=== PATIENT | female | born 1940 | race Caucasian/White ===

== ENCOUNTER 2019-10-12 18:22 | Inpatient (IN) ==
[2019-10-12] MEDS ORDERED: ONDANSETRON INJ 2 MG/ML 2 ML VIAL IV STA (19:04)
--- NOTE | 2019-10-12 19:04 | Emergency Department Note ---
Impression & Plan Hyponatremia, Nausea, Weakness ED Provider Note NAME: ISMA CHACON AGE: 79 SEX: F : 1940 ARRIVES VIA: Ambulance INFORMANT: Patient, ED PROVIDER(S): Yefri Kee MD Chief Complaint: Nausea, decreased appetite HPI: Patient does present with concerns for nausea and decreased appetite. The patient states that she is just not felt well with some associated weakness. The patient states that her symptoms really began last week progressively worse on Thursday. The patient has not vomited for several days but has absolutely no appetite. The patient states that she had been seen up in [place] days ago. Patient is unsure as whether or not she had any imaging done at that time. Patient states that she has had bowel movements and urinating. No blood in urine or stool. The patient denies coronavirus contacts or symptoms at this time. Patient states that nothing particular is made her symptoms any better nothing particular does seem to make it worse. The patient states that her symptoms have been fairly constant and worsening. Patient did have occasional chest pressure but it was nonexertional in nature. ROS: See HPI for pertinent positives and negatives. A total of 10 systems were reviewed and otherwise negative. Past medical history: See below Surgical history: See below Social history: See below Physical Exam: GENERAL: NAD, non-toxic. Wearing a mask. EYE EXAM: Normal conjunctiva. PERRL, no anisocoria and EOM's grossly intact w/o pain. NECK: Supple, no nuchal rigidity, no adenopathy, non-tender. No signs of meningismus. LUNGS: Clear to auscultation. Normal chest wall mechanics. HEART: NSR, no MRG. ABDOMEN: Abdomen soft, non-tender, normo-active bowel sounds, no masses, no rebound or guarding. BACK: No CVA TTP. SKIN: No rashes and no bruising. UPPER EXTREMITIES: Upper extremities are grossly normal. LOWER EXTREMITIES: Grossly normal, no edema. NEURO EXAM: A&O x3, cranial nerves II-XII grossly intact, normal speech, moves all 4 extremities on command w/o issue. Differential diagnoses: Appendicitis, ovarian cyst, ovarian torsion, ectopic , TOA, PID, infections, diverticulitis, UTI, obstruction, mesenteric ischemia, aortic pathology, inflammatory bowel disease, renal colic, PUD, pancreatitis, biliary pathology, hernia, volvulus, constipation, as well as other pathologies. Course: Patient was seen and evaluated the bedside. Full history physical exam was performed. EKG: Normal sinus rhythm, rate 80, normal intervals, normal axis, possible Q wave in V2 and lead III no obvious ST changes. No prior EKGs for comparison Imaging Studies: Radiology results as stated below per my review in the radiologist's interpretation: CT abd pelvis IV con only CLINICAL HISTORY: nausea, decreased appetite COMPARISON STUDY: None. TECHNIQUE: Patient was scanned following administration of dilute oral contrast, and in a dynamic helical fashion during intravenous administration of 90 cc of Optiray 320. A dose lowering technique was utilized adhering to the principles of ALARA. CT DOSE: 366.88 mGycm FINDINGS: Lower chest: There are mild basilar atelectatic changes Liver: The contrast-enhanced liver is normal in size, contour, and attenuation. There is no intrahepatic biliary ductal dilatation. The hepatic veins and portal veins are patent. Gallbladder: Unremarkable. Spleen: Top normal in size. No splenic masses identified Pancreas: Unremarkable. Adrenal glands: There is minor left adrenal gland thickening. Kidneys: No solid renal masses are visualized. There is no hydronephrosis. There is a 1 cm right renal cyst. Bowel: There are no transition zones to indicate bowel obstruction. There is no acute diverticulitis. The appendix is not visualized with certainty. There are no findings to indicate acute appendicitis. Peritoneum: There is no intraperitoneal free air or abdominal ascites. There is a fat-containing left inguinal hernia Vasculature: The abdominal aorta is normal in course and caliber. Adenopathy: None. Pelvic viscera: The uterus appears surgically absent Skeletal structures: No destructive osseous lesions are seen. IMPRESSION: 1. No acute intra-abdominal or pelvic findings 2. No evidence of bowel obstruction. No evidence of free air 3. No evidence of acute diverticulitis. No evidence of acute appendicitis. 4. Small fat-containing left inguinal hernia ACT 112: Negative or not required by law. Electronically signed by: Esteban Ramirez M.D. 10/12/2019 9:04 PM Dictated: 10/12/192058 Transcribed: 10/12/192102 XR chest 1V portable CLINICAL HISTORY: nausea COMPARISON STUDY: No previous studies for comparison. FINDINGS: The cardiac and mediastinal contours are normal. There is no evidence of focal pulmonary consolidation. There is no evidence of failure. No pleural effusions are visualized.[There is no free intraperitoneal air. IMPRESSION: No active disease in the chest. ACT 112: Negative or not required by law. Electronically signed by: Esteban Ramirez M.D. 10/12/2019 7:20 PM Dictated: 10/12/191918 Transcribed: 10/12/191918 Cardiac monitoring: An order was placed for continuous cardiac monitoring. The monitor shows a rate of 80 with sinus rhythm. MDM: Patient was seen due to concern for decreased appetite as well as nausea. The patient states that she did have some occasional associated chest pressure. Patient denies exertional symptoms. Blood work was obtained showed the patient was hyponatremic. CT of the abdomen pelvis was unremarkable. EKG with no obvious acute ischemic change possible Q waves. Troponin is not elevated. Given the patient's hyponatremia decreased appetite I do believe the patient would benefit from inpatient treatment and additional monitoring. I did speak the on-call hospitalist who agreed to further evaluate treat the patient. Patient was subsequently mated to the medicine service by Dr. Jackman. Past Med/Surg History Medical History (Updated 10/14/19 @ 12:12 by Yefri Kee MD) Glaucoma HTN (hypertension) Social History Preferred Language: Hong Konger Communication Ability: Effective Briquette Maker Required: No Beliefs That Will Affect Care: Spiritual marital status: Current Living Situation: Spouse Other Information That Helps Us Care for You: No Feels Safe at Home: Yes Safety Concerns: Feels Safe At This Time Smoking Status: Former smoker Tobacco Type: cigarettes ; Do You Dip or Chew Tobacco: No ; Second Hand Exposure: No ; Tobacco Cessation Education Requested by Patient: No Hx Alcohol Use: Yes Alcohol type: wine Hx Substance Use: No Allergies Allergies Allergy/AdvReac Type Severity Reaction Status Date / Time brimonidine AdvReac CRUSTY EYES Verified 10/12/19 19:25 Home Meds Home Medications Medication Instructions Recorded Confirmed biotin 10,000 mcg PO DAILY 10/12/19 10/12/19 calcium carb,glucon-vitamin D2 2 tab PO DAILY 10/12/19 10/12/19 dorzolamide [Trusopt] 1 drp OPHTHALMIC (EYE) UD 10/12/19 10/12/19 latanoprost [Xalatan] 1 drp OPL QPM 10/12/19 10/12/19 lisinopril 10 mg PO DAILY 10/12/19 10/12/19 metoprolol succinate [Toprol XL] 25 mg PO DAILY 10/12/19 10/12/19 multivitamin 1 tab PO DAILY 10/12/19 10/12/19 omega 7-slm-pzr-fish oil [[place]-3] 1 cap PO DAILY 10/12/19 10/12/19 potassium chloride [Klor-Con M20] 20 meq PO DAILY 10/12/19 10/12/19 timolol maleate [Timoptic] 1 drp OPL BID 10/12/19 10/12/19 Results & Data (ED) Vital Signs Vital Signs - 24 hr 10/12/19 18:45 Temperature 37.1 C Temperature Source Oral Pulse Rate 82 Pulse Rhythm Regular Pulse Strength Normal Respiratory Rate 18 Respiratory Effort / Characteristics Non-Labored Spontaneous Short of Breath Respiratory Depth Normal Respiratory Pattern Regular Blood Pressure 175/79 H Blood Pressure Mean 111 Blood Pressure Position Sitting Pulse Oximetry 97 Oxygen Delivery Method Room Air Sepsis Recent Fever Within 48 Hours No Sepsis Action Taken by Nursing No Action Required Home Medications Current Medication List: was personally reviewed by me Laboratory Data Attestation: I reviewed the patient's lab results. Result diagrams: 10/14/19 06:57 10/14/19 06:57 Lab Results 10/12/19 10/12/19 10/12/19 Range/Units 19:35 19:36 19:36 WBC 10.77 (4.8-10.8) K/uL RBC 4.71 (4.2-5.4) M/uL Hgb 13.5 (12.0-16.0) g/dL Hct 38.2 (37-47) % MCV 81.1 (80-100) fL MCH 28.7 (25-34) pg MCHC 35.3 (32-36) g/dL RDW Std Deviation 39.4 (36.4-46.3) fL RDW Coeff of Beth 13.1 (11.5-14.5) % Plt Count 91 L (130-400) K/uL MPV 10.6 H (7.4-10.4) fL Neutrophils % (Manual) 36.5 % Lymphocytes % (Manual) 20.0 % Reactive Lymphs % (Man) 38.3 % Monocytes % (Manual) 3.5 % Metamyelocytes % (Man) 1.7 % Neutrophils # (Manual) 3.93 (1.4-6.5) K/uL Total Absolute Neuts 3.93 (1.4-6.5) K/uL Lymphocytes # (Manual) 2.15 (1.2-3.4) K/uL Reactive Lymphs # 4.12 K/uL Total Abs Lymphocytes 6.28 H (1.2-3.4) K/uL Monocytes # (Manual) 0.38 (0.11-0.59) K/uL Metamyelocytes # (Man) 0.18 H (0-0) K/uL Blood Smear Review RBC Morphology Unremarkable Sodium 126 L (136-145) mmol/L Potassium 4.4 (3.5-5.1) mmol/L Chloride 91 L (98-107) mmol/L Carbon Dioxide 28 (21-32) mmol/L Anion Gap 7.0 (3-11) BUN 17 (7-18) mg/dl Creatinine 0.73 (0.6-1.2) mg/dl Est Cr Clr Drug Dosing 48.7 ml/min Est GFR ( Amer) 92.1 Est GFR (Non-Af Amer) 79.4 BUN/Creatinine Ratio 23.8 H (10-20) Glucose 105 H (70-99) mg/dl Calcium 8.6 (8.5-10.1) mg/dl Phosphorus 1.8 L (2.5-4.9) mg/dl Magnesium 1.8 (1.8-2.4) mg/dl Total Bilirubin 0.6 (0.2-1) mg/dl AST 133 H (15-37) U/L ALT 101 H (12-78) U/L Alkaline Phosphatase 81 (45-117) U/L Troponin I 0.019 (0-0.045) ng/ml NT-Pro-B Natriuret Pep 1464 (0-1800) pg/ml Total Protein 6.9 (6.4-8.2) gm/dl Albumin 3.2 L (3.4-5.0) gm/dl Globulin 3.7 (2.5-4.0) gm/dl Albumin/Globulin Ratio 0.9 (0.9-2) Lipase 95 (73-393) U/L Urine Color Dark Yellow Urine Appearance Clear (Clear) Urine pH 7.5 (4.5-7.5) Ur Specific [place] 1.018 (1.000-1.030) Urine Protein Negative (Negative) Urine Glucose (UA) Negative (Negative) Urine Ketones 1+ H (Negative) Urine Blood Negative (Negative) Urine Nitrite Negative (Negative) Urine Bilirubin Negative (Negative) Urine Urobilinogen Negative (Negative) Ur Leukocyte Esterase Negative (Negative) Urine WBC (Auto) 1-5 (0-5) /hpf Urine RBC (Auto) 0-4 (0-4) /hpf U Hyaline Cast (Auto) 5-10 H (0-5) /lpf U Epithel Cells (Auto) >30 H (0-5) /lpf Urine Bacteria (Auto) Negative (Negative) Administered Medications Dorzolamide HCl (Trusopt 2% Oph) 1 drops OPL BID RUDOLPH Stop: 11/12/19 08:59 Last Admin: 10/14/19 08:36 Dose: 1 drops Documented by: [id number] Admin: 10/13/19 20:26 Dose: 1 drops Documented by: [id number] Admin: 10/13/19 08:00 Dose: 1 drops Documented by: [id number] Enoxaparin Sodium (Lovenox) 30 mg SQ Q24H RUDOLPH Stop: 11/12/19 08:59 Last Admin: 10/14/19 08:33 Dose: 30 mg Documented by: [id number] Admin: 10/13/19 09:11 Dose: 30 mg Documented by: [id number] Ioversol (Optiray 320 100ml) 90 ml IV ONCE PRN PRN Reason: Interaction Checking Stop: 10/16/19 20:46 Last Admin: 10/12/19 20:49 Dose: 90 ml Documented by: [id number] Latanoprost (Xalatan Oph) 1 drops OPL QPM RUDOLPH Stop: 11/12/19 20:59 Last Admin: 10/13/19 20:26 Dose: 1 drops Documented by: [id number] Lisinopril (Zestril) 10 mg PO DAILY RUDOLPH Stop: 11/12/19 08:59 Last Admin: 10/14/19 08:36 Dose: 10 mg Documented by: [id number] Admin: 10/13/19 09:06 Dose: 10 mg Documented by: [id number] Magnesium Hydroxide (Milk Of Magnesia) 30 ml PO Q6H PRN PRN Reason: Constipation Stop: 11/12/19 00:18 Last Admin: 10/13/19 20:27 Dose: 30 ml Documented by: [id number] Metoprolol Succinate (Toprol Xl) 25 mg PO DAILY RUDOLPH Stop: 11/12/19 08:59 Last Admin: 10/14/19 08:35 Dose: 25 mg Documented by: [id number] Admin: 10/13/19 09:06 Dose: 25 mg Documented by: [id number] Timolol Maleate (Timoptic-Xe 0.5% Oph) 1 drops OPL BID RUDOLPH Stop: 11/12/19 08:59 Last Admin: 10/14/19 08:35 Dose: 1 drops Documented by: [id number] Admin: 10/13/19 20:26 Dose: 1 drops Documented by: [id number] Admin: 10/13/19 07:59 Dose: 1 drops Documented by: [id number] Discontinued Medications Sodium Phosphate 21 mmol/ (Sodium Chloride) 507 mls @ 88 mls/hr IV ONE ONE Stop: 10/13/19 06:15 Last Infusion: 10/13/19 06:50 Dose: 0 mls/hr Documented by: [id number] Admin: 10/13/19 01:00 Dose: 88 mls/hr Documented by: [id number] Ondansetron HCl (Zofran) 4 mg IV NOW STA Stop: 10/12/19 19:05 Last Admin: 10/12/19 20:11 Dose: 4 mg Documented by: [id number] Sodium Chloride (Sodium Chloride) 2 gm PO BID RUDOLPH Stop: 11/12/19 00:18 Last Admin: 10/13/19 09:05 Dose: 2 gm Documented by: [id number] Admin: 10/13/19 01:00 Dose: 2 gm Documented by: [id number] Discharge Plan Visit Data *Final* Discharge Date/Time: 10/13/19 00:21 Chief Complaint: Nausea ED Provider: Yefri Kee Discharge Problem: Hyponatremia, Nausea, Weakness Patient Disposition: Admitted As Inpatient Discharge Instructions Interventions: ED Discharge Assessment Last Done: 10/13/19 00:21
--- NOTE | 2019-10-12 19:21 | XRay Report ---
XR chest 1V portable CLINICAL HISTORY: nausea COMPARISON STUDY: No previous studies for comparison. FINDINGS: The cardiac and mediastinal contours are normal. There is no evidence of focal pulmonary co nsolidation. There is no evidence of failure. No pleural effusions are visualized.[There is no free i ntraperitoneal air. IMPRESSION: No active disease in the chest. ACT 112: Negative or not required by law. Electronically signed by: Esteban Ramirez M.D. 10/12/2019 7:20 PM
[2019-10-12 20:04] LABS: Albumin Level 3.2 gm/dl (3.4-5.0); BUN Creatinine Ratio 23.8 (10-20); Calcium 8.6 mg/dl (8.5-10.1); Creatinine Clr Calc Pharmacy 48.7 ml/min; Est GFR (African American) 92.1; Est GFR (Non-African American) 79.4; Magnesium 1.8 mg/dl (1.8-2.4); Potassium 4.4 mmol/L (3.5-5.1)
[2019-10-12 20:05] LABS: Appearance Urine Clear (Clear); Bacteria Urine Automated Negative (Negative); Bilirubin Urine Negative (Negative); Blood Urine Negative (Negative); Color Urine Dark Yellow; Epithelial Cell Urine Auto >30 /lpf (0-5); Glucose Urine UA Negative (Negative); Ketones Urine 1+ (Negative); Leukocyte Esterase Urine Negative (Negative); Nitrite Urine Negative (Negative); RBC Urine Automated 0-4 /hpf (0-4); Specific Gravity Urine 1.018 (1.000-1.030); Urobilinogen Urine Negative (Negative); pH Urine 7.5 (4.5-7.5)
[2019-10-12 20:09] LABS: Albumin Globulin Ratio 0.9 (0.9-2); Bilirubin,Total 0.6 mg/dl (0.2-1); Globulin 3.7 gm/dl (2.5-4.0); Phosphorus 1.8 mg/dl (2.5-4.9); Total Protein 6.9 gm/dl (6.4-8.2); Troponin I 0.019 ng/ml (0-0.045)
[2019-10-12 20:10] LABS: Hematocrit (blood only) 38.2 % (37-47); Hemoglobin 13.5 g/dL (12.0-16.0); Mean Corpuscular Hemoglobin 28.7 pg (25-34); Mean Corpuscular Hgb Conc 35.3 g/dL (32-36); Mean Corpuscular Volume 81.1 fL (80-100); RDW Coefficient of Variation 13.1 % (11.5-14.5); RDW Standard Deviation 39.4 fL (36.4-46.3); Red Blood Count 4.71 M/uL (4.2-5.4); White Blood Count 10.77 K/uL (4.8-10.8)
[2019-10-12 20:11] LABS: Protein Urine Negative (Negative); Sulfosalicylic Acid Urine Negative (Negative)
[2019-10-12 20:30] LABS: Mean Platelet Volume 10.6 fL (7.4-10.4); Platelet Count 91 K/uL (130-400)
[2019-10-12 20:31] LABS: ALC (manual) 6.28 K/uL (1.2-3.4); ANC (manual) 3.93 K/uL (1.4-6.5); Lymphocytes # (manual) 2.15 K/uL (1.2-3.4); Metamyelocytes # (manual) 0.18 K/uL (0-0); Metamyelocytes % (manual) 1.7 %; Monocytes # (manual) 0.38 K/uL (0.11-0.59); Monocytes % (manual) 3.5 %; Neutrophils # (manual) 3.93 K/uL (1.4-6.5); Neutrophils % (manual) 36.5 %; RBC Morphology Unremarkable; Reactive Lymphocytes # (manual) 4.12 K/uL; Reactive Lymphocytes % (manual) 38.3 %
[2019-10-12] MEDS ORDERED: IOVERSOL 100ml IV PRN (20:47)
--- NOTE | 2019-10-12 21:05 | CT Scan Report ---
CT abd pelvis IV con only CLINICAL HISTORY: nausea, decreased appetite COMPARISON STUDY: None. TECHNIQUE: Patient was scanned following administration of dilute oral contrast, and in a dynamic hel ical fashion during intravenous administration of 90 cc of Optiray 320. A dose lowering technique wa s utilized adhering to the principles of ALARA. CT DOSE: 366.88 mGycm FINDINGS: Lower chest: There are mild basilar atelectatic changes Liver: The contrast-enhanced liver is normal in size, contour, and attenuation. There is no intrahepa tic biliary ductal dilatation. The hepatic veins and portal veins are patent. Gallbladder: Unremarkable. Spleen: Top normal in size. No splenic masses identified Pancreas: Unremarkable. Adrenal glands: There is minor left adrenal gland thickening. Kidneys: No solid renal masses are visualized. There is no hydronephrosis. There is a 1 cm right jayleen l cyst. Bowel: There are no transition zones to indicate bowel obstruction. There is no acute diverticulitis. The appendix is not visualized with certainty. There are no findings to indicate acute appendicitis. Peritoneum: There is no intraperitoneal free air or abdominal ascites. There is a fat-containing left inguinal hernia Vasculature: The abdominal aorta is normal in course and caliber. Adenopathy: None. Pelvic viscera: The uterus appears surgically absent Skeletal structures: No destructive osseous lesions are seen. IMPRESSION: 1. No acute intra-abdominal or pelvic findings 2. No evidence of bowel obstruction. No evidence of free air 3. No evidence of acute diverticulitis. No evidence of acute appendicitis. 4. Small fat-containing left inguinal hernia ACT 112: Negative or not required by law. Electronically signed by: Esteban Ramirez M.D. 10/12/2019 9:04 PM
--- NOTE | 2019-10-12 22:28 | History & Physical Report ---
Date of Service October 12, 2019 Assessment & Plan (1) Hyponatremia: Mrs. Maria is a 79 yo woman who presents to [facility] after a recent hospitalization at [facility] with persistent nausea and diminished appetite, found to be hyponatremia on admission. - sodium level 129 on admission - clinically patient appears euvolemic - serum osmolarity, urine osmolarity, urine sodium ordered - etiology unknown at this time; given suspicion for hypovolemic hyponatremia at [facility], SIADH is a possible etiology, as patient has no history of Kenneth's disease or thyroid disease (can consider checking a TSH); plasma bicarb normal and anion gap normal, making distal RTA unlikely as cause - in the event SIADH is cause, unlikely to be medication induced, as patient not using cyclophosphamide, vinca alkaloids or NSAIDs. Nausea is possible etiology. Pain is unlikely as cause, as patient only developed abdominal discomfort today and she was hyponatremic on presentation at [facility] on 10/07. 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 Can consider brain imaging. Lung malignancy is possible as patient is a former smoker (pack year history not obtained), although CXR was normal. - fluid restrict to 1 liter per day - start salt tabs, 2grams, BID - repeat BMP in AM labs (2) Hypophosphatemia: - level at 1.8 on admission - 21 mmol of IV replacement ordered - repeat level in AM (3) Elevated LFTs: - AST 133, ALT 101 - INR level at 1.19 (obtained at [facility]); suggests no issue with intrinsic liver function - CT scan of a/p showed no structural liver issues - etiology unknown; considering platelets are also low, there is concern for spirochete infection - ordered lyme and anaplasmosis serology - patient denies any recollection of recent tick bite (4) Thrombocytopenia: - platelets at 91k/UL (review of records from [facility] showed level of 78k/UL) - see work up as above - DVT ppx NOT contraindicated (5) Lymphocytosis: - elevated to 6 on admission - metamyelocytes also present - peripheral smear ordered - concern for myelodysplastic syndrome - consider lymphoma/leukemia panel during hospital stay (6) Nausea: - persistent; has not vomited since 10/06 - CT a/p showing no acute findings - may be secondary to (or cause of) hyponatremia - Zofran prn (7) Inguinal hernia, left: - noted incidentally on CT scan of abdomen and pelvis - possibly represents the source of patient's left sided abdominal pain? - serial exams (8) Cyst of right kidney: - noted incidentally on CT scan of abdomen and pelvis - 1cm in size (9) HTN (hypertension): - BP elevated to 175/79 on admission - continue home lisinopril and metoprolol succinate (10) Glaucoma: - chronic - patient to continue home eye drops while in hospital - no acute management Dispo: med//surg with tele DVT ppx: Lovenox 30mg SQ daily Diet: heart healthy Code: Full History of Present Illness Primary Care Provider: Anthony Gao Mrs. Maria is a 79 yo woman who presented to [facility] ED for evaluation o f ongoing nausea, left sided abdominal pain, and diminished appetite. Of note, Mrs. Maria was admitted to [facility] from 10/08/19 until today. She presented to [facility] with nausea, vomiting, SOB and cough. On arrival she was COVID tested, which came back negative. Her BNP was elevated to 1048, and the initial concern was that of a new diagnosis of CHF, however her CXR did not show evidence of pulmonary congestion and an echocardiogram obtained during her stay at [facility] was reportedly normal. Mrs. Maria also presented with electrolyte disturbances, including a sodium level of 129. Urine random sodium was 7 and urine osmolarity was 645. Nephrology was consulted during her hospital stay and felt as though she had a hypovolemic hyponatremia as her sodium level did not improve with administration of 1 liter of saline. Upon discharge from [facility], Mrs. Maria was given a script of K-Dur 20mEQ daily, directed to fluid restrict to 1 liter per day, and advised to see a city marshal for work up of pulmonary HTN. Her follows with Dr. Miguel here at [facility], so Mrs. Maria would like to see him. After being discharged from [facility] today, Mrs. Maria continued to feel nauseous. She was able to hold down several bites of lunch, although she truly had no appetite. Her last BM was 2 days ago. In the afternoon she developed left sided abdominal pain, which ultimately prompted her to come to [facility] for further evaluation. ED course: CBC showing normal WBC, but lymphocytosis and metamyelocytes. Platelets low at 91k/uL (increased from 78k/uL at [facility]). Sodium low at 126. Phosphorus low at 1.8. AST 133. ALT 101. Lipase WNL. CXR showing no active disease in chest, no evidence of pulmonary edema. CT scan of A/P showing no acute processes; a left, small fat-containing inguinal hernia; a right 1cm renal cyst also noted incidentally. Allergies Allergy/AdvReac Type Severity Reaction Status Date / Time brimonidine AdvReac CRUSTY EYES Verified 10/12/19 19:25 Home Medications Home Medications Medication Instructions Recorded Confirmed Type biotin 10,000 mcg PO DAILY 10/12/19 10/12/19 History calcium carb,glucon-vitamin D2 2 tab PO DAILY 10/12/19 10/12/19 History dorzolamide [Trusopt] 1 drp OPHTHALMIC (EYE) UD 10/12/19 10/12/19 History latanoprost [Xalatan] 1 drp OPL QPM 10/12/19 10/12/19 History lisinopril 10 mg PO DAILY 10/12/19 10/12/19 History metoprolol succinate [Toprol XL] 25 mg PO DAILY 10/12/19 10/12/19 History multivitamin 1 tab PO DAILY 10/12/19 10/12/19 History omega 1-ydl-gjv-fish oil [[place]-3] 1 cap PO DAILY 10/12/19 10/12/19 History potassium chloride [Klor-Con M20] 20 meq PO DAILY 10/12/19 10/12/19 History timolol maleate [Timoptic] 1 drp OPL BID 10/12/19 10/12/19 History Past Med/Surg History Medical History (Updated 10/13/19 @ 16:49 by ARIELLA Barrow) Glaucoma HTN (hypertension) Social History Preferred Language: Kenyan Communication Ability: Effective Manager Sales Support Required: No Beliefs That Will Affect Care: Spiritual marital status: Current Living Situation: Spouse Other Information That Helps Us Care for You: No Feels Safe at Home: Yes Safety Concerns: Feels Safe At This Time Smoking Status: Former smoker Tobacco Type: cigarettes ; Do You Dip or Chew Tobacco: No ; Second Hand Exposure: No ; Tobacco Cessation Education Requested by Patient: No Hx Alcohol Use: Yes Alcohol type: wine Hx Substance Use: No Review of Systems Constitutional: + malaise Gastrointestinal: + abdominal pain (left upper quadrant ), + early satiety and + nausea; no vomiting Physical Exam Constitutional: WD/WN, vitals as above cooperative; no acute distress Appears to be Euvolemic Eyes: + anicteric sclerae L eye squinting ENMT: external ear and nose normal, oropharynx normal wearing a mask Neck: normal visual inspection and trachea midline Respiratory: normal respiratory effort, lungs clear to auscultation Auscultation: no crackles, no rales, no rhonchi and no wheezes Cardiovascular: RRR, no murmur, no edema Heart Sounds: normal S1 and normal S2 Extremities: no pedal edema Gastrointestinal (Abdomen): normal bowel sounds, soft, nontender, no hepatosplenomegaly Skin: no rashes, warm and dry Psychiatric: A+Ox3, euthymic affect Results & Data Results & Data ([facility]) Vital Signs (Past 12 Hours) Vital Signs Temp Pulse Resp BP BP Pulse Ox 10/12/19 21:36 96 10/12/19 20:10 175/79 H 10/12/19 18:45 37.1 C 82 18 175/79 H 97 Supervising Physician Co-Signing Physician Notes Attending addendum: I have physically seen this patient, have supervised the medical residents activities, and agree with the H&P unless as otherwise noted. Assessment and Plan: Hyponatremia- Sodium 126 upon admission. Fluid restrict to 1 L daily as noted Start sodium chloride 2 g p.o. twice daily Check serum osmolality, urine osmolality and urine sodium. Urine osmolality reportedly over 600 at previous hospital. If diagnosis is SIADH, will need to pursue appropriate work-up, including imaging of brain. Abnormal LFTs- CT scan abdomen and pelvis negative Repeat laboratories in a.m. If worsening, can pursue abnormal LFT work-up at that time. Due to associated thrombocytopenia, will order Lyme and anaplasmosis serologies. Order peripheral smear. Lymphocytosis/metamyelocytes- Order peripheral smear. Repeat laboratories in a.m. Persistent and/or worsening, consider to order lymphoma/leukemia profile. Differential includes viral process/MDS/lymphoma, leukemia. Remaining orders and notations as noted. Resident Activity Tracking Resident Involvement: Resident Care Provided Care Provided: Adult Hospital Medicine
[2019-10-13] MEDS ORDERED: SODIUM PHOSPHATE 3 MMOL/1 ML INFUSION IV STA (00:19)
[2019-10-13] MEDS ORDERED: ACETAMINOPHEN 325 MG TAB PO PRN (00:19)
[2019-10-13] MEDS ORDERED: ONDANSETRON INJ 2 MG/ML 2 ML VIAL IV PRN (00:19)
[2019-10-13] MEDS ORDERED: POLYETHYLENE (MIRALAX) 17 GM PACK PO PRN (00:19)
[2019-10-13] MEDS ORDERED: ALUMINUM/MAGNESIUM SUSP 30 ML UDC PO PRN (00:19)
[2019-10-13] MEDS ORDERED: MAGNESIUM HYDROXIDE SUSP 30 ML UDC PO PRN (00:19)
[2019-10-13] MEDS ORDERED: ZOLPIDEM TARTRATE 5 MG TAB PO PRN (00:19)
[2019-10-13] MEDS ORDERED: SODIUM PHOSPHATE 21 MMOL in SODIUM CHLORIDE 0.9% 500 ML IV ONE (00:30)
[2019-10-13] MEDS: SODIUM CHLORIDE 1 GM TABLET PO SCH ×2 (01:00→09:05)
[2019-10-13 06:42] LABS: INR 1.1 (0.9-1.1); Prothrombin Time 11.8 Seconds (9.0-12.0)
[2019-10-13 07:08] LABS: BUN Creatinine Ratio 26.6 (10-20); Calcium 7.9 mg/dl (8.5-10.1); Creatinine Clr Calc Pharmacy 67.1 ml/min; Est GFR (African American) 106.1; Est GFR (Non-African American) 91.6; Phosphorus 5.3 mg/dl (2.5-4.9); Potassium 3.8 mmol/L (3.5-5.1)
[2019-10-13 07:21] LABS: Lyme Ab IgG w/WB Rflx Negative (Negative); Lyme Ab IgM w/WB Rflx Negative (Negative)
[2019-10-13] MEDS: TIMOLOL GFS 0.5% OPH SOLN 74 DROPS/5 ML BTL OPL SCH ×2 (07:59→20:26)
[2019-10-13] MEDS: DORZOLAMIDE HCL 2% OPH SOLN 10 ML BTL OPL SCH ×2 (08:00→20:26)
[2019-10-13] MEDS: METOPROLOL SUCC 25MG EXT REL TAB PO SCH (09:06)
[2019-10-13] MEDS: lisinopriL 10 MG TAB PO SCH (09:06)
[2019-10-13] MEDS: ENOXAPARIN INJ 30 MG/0.3 ML SYR SQ SCH (09:11)
--- NOTE | 2019-10-13 10:54 | Hospitalist Progress Note ---
Date of Service October 13, 2019 Assessment & Plan (1) Hyponatremia: Mrs. Maria is a 79 yo woman who presents to [facility] after a recent hospitalization at [facility] with persistent nausea and diminished appetite, found to be hyponatremia on admission. - sodium level 129 on admission, now 133 - clinically patient appears euvolemic - serum osmo/urine osmo/sodium => SIADH? will order cortisol am, TSH, repeat urine osmo - CT chest without acute change or malignancy - will discontinue sodium tablets and fluid restriction and see how patient's labs look in the morning (2) Hypophosphatemia: - replaced (3) Elevated LFTs: - AST 133, ALT 101 - INR wnl; suggests no issue with intrinsic liver function - CT scan of a/p showed no structural liver issues - Lyme negative, peripheral smear without evidence of anaplasma - anaplasmosis serology pending - patient denies any recollection of recent tick bite (4) Thrombocytopenia: - platelets at 91k/UL (review of records from [facility] showed level of 78k/UL) - repeat cbc am (5) Lymphocytosis: - elevated to 6 on admission - metamyelocytes also present - peripheral smear ordered - lymphocytosis and normocytic anemia. The lymphocytes show some atypical morphology with concern for a leukemia/lymphomatous component. Flow cytometry has been ordered for further evaluation (6) Nausea: - persistent; has not vomited since 10/06, ate breakfast today - persistent mild left abdominal pain - CT a/p showing no acute findings - Zofran prn (7) Inguinal hernia, left: - noted incidentally on CT scan of abdomen and pelvis - possibly represents the source of patient's left sided abdominal pain? - abdomen soft on exam with only mild tenderness, continue to monitor (8) Cyst of right kidney: - noted incidentally on CT scan of abdomen and pelvis - 1cm in size (9) HTN (hypertension): - continue home lisinopril and metoprolol succinate (10) Glaucoma: - chronic - patient to continue home eye drops while in hospital - no acute management (11) DVT prophylaxis: Lovenox 30mg SQ daily Diet: heart healthy Code: Full Admission and Anticipated Discharge Date Admission Date: October 12, 2019 Subjective Ms. Maria is feeling better, ate breakfast, no n/v. She does have some pain in her lower left abdomen. updated over the phone ROS Constitutional: no chills, aches, sweats or fever Respiratory: no sob,cough, sputum, or wheezing Cardiac: no chest pain, palpitations, edema, orthopnea or lightheadedness GI: see HPI : no dysuria or hesitancy Extremities: no joint pain or weakness Skin: no rash All other systems reviewed and negative Physical Exam Physical Exam: General: no distress Eyes: normal inspection, PERLL Respiratory: chest non tender, clear to auscultation, normal breath sounds, no respiratory distress, no accessory muscle use Cardiac: regular rate and rhythm, no rub or gallop, no murmur, no edema, no jvd GI/: active bowel sounds, no abd pain or tenderness, soft, non distended Extremities: normal range of motion, normal strength, non tender Neuro/Psych: alert and oriented x 3, normal mood and affect Skin: normal color, dry Results & Data Results & Data ([facility]) Vital Signs (Past 12 Hours) Vital Signs Temp Pulse Pulse Resp BP BP Pulse Ox 10/13/19 07:41 36.6 C 86 16 137/70 93 10/13/19 00:21 89 16 95/58 L 95 10/13/19 00:10 36.9 C 97 H 12 119/72 95 Pulse Ox 10/13/19 07:41 10/13/19 00:21 10/13/19 00:10 95 PG Care Time/CCT Total # of Minutes Spent Total Time Spent with Patient: Total time spent is greater than 50% in coordination of care (as documented) at patient's floor/unit and/or counseling patient: Coding Level of Care Code 54975 Subseq Hosp Care Lvl 3 Diagnoses Hyponatremia E87.1 Hypophosphatemia E83.39 Elevated LFTs R79.89 Thrombocytopenia D69.6 Lymphocytosis D72.820 Nausea R11.0 Inguinal hernia, left K40.90 Cyst of right kidney N28.1 HTN (hypertension) I10 Glaucoma H40.9 DVT prophylaxis Z29.9
--- NOTE | 2019-10-13 15:27 | CT Scan Report ---
CT OF THE CHEST WITHOUT IV CONTRAST CLINICAL HISTORY: Right-sided chest pain. Evaluate for malignancy. COMPARISON STUDY: Chest radiograph October 12, 2019. CT DOSE: 275.21 mGycm TECHNIQUE: Axial images of the chest were obtained without IV contrast. Images were reviewed in the axial, sagittal, and coronal planes. IV contrast was not administered for this examination. Automat ed exposure control was utilized for the study. A dose lowering technique was utilized adhering to t he principles of ALARA. FINDINGS: No enlarged axillary, mediastinal or hilar lymph nodes are present. The size of the heart is normal. There is no pericardial effusion. The central airways are patent. No pneumothorax or pleur al effusion is noted. There are no suspicious pulmonary nodules. Mild subpleural bilateral lower lobe and lingular opacities reflect atelectasis. There is no consolidation to suggest pneumonia. No suspi cious lesions are identified within the bony thorax. Upper abdomen is unremarkable. IMPRESSION: Unremarkable unenhanced chest CT. No evidence for malignancy. ACT 112: Negative or not required by law. Electronically signed by: Ganga Perez M.D. 10/13/2019 3:25 PM
[2019-10-13] MEDS: LATANOPROST 0.005% OP SOLN 2.5 ML BTL OPL SCH (20:26)
--- NOTE | 2019-10-13 21:49 | Billing Data ---
Date of Service October 13, 2019 Coding Level of Care Code 75170 Initial Inpt Care Lvl 3
--- NOTE | 2019-10-13 22:32 | Electrocardiogram Report ---
Test Reason : Blood Pressure : / mmHG Vent. Rate : 080 BPM Atrial Rate : 080 BPM P-R Int : 162 ms QRS Dur : 082 ms QT Int : 366 ms P-R-T Axes : 056 000 054 degrees QTc Int : 422 ms Poor data quality, interpretation may be adversely affected Normal sinus rhythm Septal infarct , age undetermined Abnormal ECG No previous ECGs available Confirmed by Chris Mabry ([id number]) on 10/13/2019 10:32:15 PM Referred By: REFERRED SELF Confirmed By:Chris Mabry
[2019-10-14 07:23] LABS: Hematocrit (blood only) 35.1 % (37-47); Hemoglobin 11.8 g/dL (12.0-16.0); Mean Corpuscular Hemoglobin 28.1 pg (25-34); Mean Corpuscular Hgb Conc 33.6 g/dL (32-36); Mean Corpuscular Volume 83.6 fL (80-100); Mean Platelet Volume 9.5 fL (7.4-10.4); Platelet Count 139 K/uL (130-400); RDW Coefficient of Variation 13.5 % (11.5-14.5); White Blood Count 11.73 K/uL (4.8-10.8)
[2019-10-14 07:44] LABS: Albumin Level 2.9 gm/dl (3.4-5.0); BUN Creatinine Ratio 26.7 (10-20); Calcium 7.9 mg/dl (8.5-10.1); Creatinine Clr Calc Pharmacy 69.7 ml/min; Est GFR (African American) 107.5; Est GFR (Non-African American) 92.8; Potassium 3.9 mmol/L (3.5-5.1)
[2019-10-14 07:55] LABS: Albumin Globulin Ratio 0.9 (0.9-2); Bilirubin,Total 0.4 mg/dl (0.2-1); Globulin 3.4 gm/dl (2.5-4.0); Thyroid Stimulating Hormone 2.24 uIu/ml (0.300-4.500); Total Protein 6.3 gm/dl (6.4-8.2)
[2019-10-14 08:33] LABS: ALC (manual) 8.33 K/uL (1.2-3.4); ANC (manual) 2.57 K/uL (1.4-6.5); Eosinophils # (manual) 0.11 K/uL (0-0.5); Eosinophils % (manual) 0.9 %; Lymphocytes # (manual) 2.78 K/uL (1.2-3.4); Lymphocytes % (manual) 23.7 %; Metamyelocytes # (manual) 0.21 K/uL (0-0); Metamyelocytes % (manual) 1.8 %; Monocytes % (manual) 2.6 %; Myelocytes # (manual) 0.21 K/uL (0-0); Myelocytes % (manual) 1.8 %; Neutrophils # (manual) 2.57 K/uL (1.4-6.5); Neutrophils % (manual) 21.9 %; Reactive Lymphocytes # (manual) 5.55 K/uL; Reactive Lymphocytes % (manual) 47.3 %
[2019-10-14] MEDS: ENOXAPARIN INJ 30 MG/0.3 ML SYR SQ SCH (08:33)
[2019-10-14] MEDS: TIMOLOL GFS 0.5% OPH SOLN 74 DROPS/5 ML BTL OPL SCH ×2 (08:35→20:36)
[2019-10-14] MEDS: METOPROLOL SUCC 25MG EXT REL TAB PO SCH (08:35)
[2019-10-14] MEDS: lisinopriL 10 MG TAB PO SCH (08:36)
[2019-10-14] MEDS: DORZOLAMIDE HCL 2% OPH SOLN 10 ML BTL OPL SCH ×2 (08:36→20:36)
--- NOTE | 2019-10-14 13:59 | Hospitalist Progress Note ---
Date of Service October 14, 2019 Assessment & Plan (1) Hyponatremia: Mrs. Maria is a 79 yo woman who presents to [facility] after a recent hospitalization at [facility] with persistent nausea and diminished appetite, found to be hyponatremia on admission. - sodium level 129 on admission, now 134 - clinically patient appears euvolemic - serum osmo/urine osmo/sodium => SIADH? TSH wnl, cortisol wnl, urine osmo increased to 438 on recheck - CT chest without acute change or malignancy (2) Hypophosphatemia: - replaced (3) Elevated LFTs: - AST 133, ALT 101 on admission- continues to be mildly elevated - INR wnl; suggests no issue with intrinsic liver function - CT scan of a/p showed no structural liver issues - Lyme negative, peripheral smear without evidence of anaplasma - anaplasmosis serology pending - patient denies any recollection of recent tick bite (4) Thrombocytopenia: - resolved (5) Lymphocytosis: - elevated to 6 on admission, 8.33 this morning - metamyelocytes also present - peripheral smear ordered - lymphocytosis and normocytic anemia. The lymphocytes show some atypical morphology with concern for a leukemia/lymphomatous component. Flow cytometry has been ordered for further evaluation (6) Nausea: - persistent; has not vomited since 10/06, eating meals - left abdominal pain resolved - CT a/p showing no acute findings - Zofran prn (7) Inguinal hernia, left: - noted incidentally on CT scan of abdomen and pelvis - possibly represents the source of patient's left sided abdominal pain? - abdomen soft on exam with only mild tenderness, continue to monitor (8) Cyst of right kidney: - noted incidentally on CT scan of abdomen and pelvis - 1cm in size (9) HTN (hypertension): - continue home lisinopril and metoprolol succinate (10) Glaucoma: - chronic - patient to continue home eye drops while in hospital - no acute management (11) DVT prophylaxis: Enoxaparin Dispo: Labs improving. Unclear etiology on hyponatremia but given her improvement, elevated LFTs, lymphocytosis possibly viral etiology? If lab work remains stable in the morning, will plan for discharge Admission and Anticipated Discharge Date Admission Date: October 12, 2019 Subjective Ms. Maria feels better today, her abdominal pain is resolved. She is not nauseas, eating ok, had a bm today. ROS Constitutional: no chills, aches, sweats or fever Respiratory: no sob,cough, sputum, or wheezing Cardiac: no chest pain, palpitations, edema, orthopnea or lightheadedness GI: no abdominal pain, nausea, vomiting, diarrhea or constipation : no dysuria or hesitancy Extremities: no joint pain or weakness Skin: no rash All other systems reviewed and negative Physical Exam Physical Exam: General: no distress Eyes: normal inspection, PERLL Respiratory: chest non tender, clear to auscultation, normal breath sounds, no respiratory distress, no accessory muscle use Cardiac: regular rate and rhythm, no rub or gallop, no murmur, no edema, no jvd GI/: active bowel sounds, no abd pain or tenderness, soft, non distended Extremities: normal range of motion, normal strength, non tender Neuro/Psych: alert and oriented x 3, normal mood and affect Skin: normal color, dry Results & Data Results & Data ([facility]) Vital Signs (Past 12 Hours) Vital Signs Temp Pulse Pulse Resp BP Pulse Ox 10/14/19 08:35 75 166/49 H 10/14/19 07:20 36.6 C 74 18 180/75 H 93 PG Care Time/CCT Total # of Minutes Spent Total Time Spent with Patient: Total time spent is greater than 50% in coordination of care (as documented) at patient's floor/unit and/or counseling patient: Coding Level of Care Code 22698 Subseq Hosp Care Lvl 3 Diagnoses Hyponatremia E87.1 Hypophosphatemia E83.39 Elevated LFTs R79.89 Thrombocytopenia D69.6 Lymphocytosis D72.820 Nausea R11.0 Inguinal hernia, left K40.90 Cyst of right kidney N28.1 HTN (hypertension) I10 Glaucoma H40.9 DVT prophylaxis Z29.9
[2019-10-14] MEDS: LATANOPROST 0.005% OP SOLN 2.5 ML BTL OPL SCH (20:37)
[2019-10-15 05:20] LABS: Hematocrit (blood only) 34.7 % (37-47); Hemoglobin 11.8 g/dL (12.0-16.0); Mean Corpuscular Hemoglobin 28.1 pg (25-34); Mean Corpuscular Volume 82.6 fL (80-100); Mean Platelet Volume 9.3 fL (7.4-10.4); Platelet Count 168 K/uL (130-400); RDW Coefficient of Variation 13.5 % (11.5-14.5); RDW Standard Deviation 40.7 fL (36.4-46.3); White Blood Count 12.33 K/uL (4.8-10.8)
[2019-10-15 05:46] LABS: Albumin Level 2.9 gm/dl (3.4-5.0); BUN Creatinine Ratio 18.9 (10-20); Calcium 8.1 mg/dl (8.5-10.1); Creatinine Clr Calc Pharmacy 59.3 ml/min; Est GFR (African American) 101.9; Est GFR (Non-African American) 87.9; Potassium 4.2 mmol/L (3.5-5.1)
[2019-10-15 05:48] LABS: Albumin Globulin Ratio 0.8 (0.9-2); Bilirubin,Total 0.4 mg/dl (0.2-1); Globulin 3.6 gm/dl (2.5-4.0); Total Protein 6.5 gm/dl (6.4-8.2)
[2019-10-15 05:50] LABS: ANC (manual) 3.65 K/uL (1.4-6.5); Basophils # (manual) 0.11 K/uL (0-0.2); Basophils % (manual) 0.9 %; Eosinophils # (manual) 0.11 K/uL (0-0.5); Eosinophils % (manual) 0.9 %; Lymphocytes # (manual) 4.71 K/uL (1.2-3.4); Lymphocytes % (manual) 38.2 %; Metamyelocytes # (manual) 0.64 K/uL (0-0); Metamyelocytes % (manual) 5.2 %; Monocytes # (manual) 0.32 K/uL (0.11-0.59); Monocytes % (manual) 2.6 %; Neutrophils # (manual) 3.65 K/uL (1.4-6.5); Neutrophils % (manual) 29.6 %; RBC Morphology Unremarkable; Reactive Lymphocytes # (manual) 2.79 K/uL; Reactive Lymphocytes % (manual) 22.6 %
[2019-10-15] MEDS: TIMOLOL GFS 0.5% OPH SOLN 74 DROPS/5 ML BTL OPL SCH (08:29)
[2019-10-15] MEDS: DORZOLAMIDE HCL 2% OPH SOLN 10 ML BTL OPL SCH (08:30)
[2019-10-15] MEDS: ENOXAPARIN INJ 30 MG/0.3 ML SYR SQ SCH (08:30)
[2019-10-15] MEDS: METOPROLOL SUCC 25MG EXT REL TAB PO SCH (09:24)
[2019-10-15] MEDS: lisinopriL 10 MG TAB PO SCH (09:24)
--- NOTE | 2019-10-15 12:47 | Discharge Summary ---
Date of Service October 15, 2019 Admission HPI Per Admitting Provider Mrs. Maria is a 79 yo woman who presented to [facility] ED for evaluation of ongoing nausea, left sided abdominal pain, and diminished appetite. Of note, Mrs. Maria was admitted to [facility] from 10/08/19 until today. She presented to [facility] with nausea, vomiting, SOB and cough. On arrival she was COVID tested, which came back negative. Her BNP was elevated to 1048, and the initial concern was that of a new diagnosis of CHF, however her CXR did not show evidence of pulmonary congestion and an echocardiogram obtained during her stay at [facility] was reportedly normal. Mrs. Maria also presented with electrolyte disturbances, including a sodium level of 129. Urine random sodium was 7 and urine osmolarity was 645. Nephrology was consulted during her hospital stay and felt as though she had a hypovolemic hyponatremia as her sodium level did not improve with administration of 1 liter of saline. Upon discharge from [facility], Mrs. Maria was given a script of K-Dur 20mEQ daily, directed to fluid restrict to 1 liter per day, and advised to see a clinic administrator for work up of pulmonary HTN. Her follows with Dr. Miguel here at [facility], so Mrs. Maria would like to see him. After being discharged from [facility] today, Mrs. Maria continued to feel nauseous. She was able to hold down several bites of lunch, although she truly had no appetite. Her last BM was 2 days ago. In the afternoon she developed left sided abdominal pain, which ultimately prompted her to come to [facility] for further evaluation. ED course: CBC showing normal WBC, but lymphocytosis and metamyelocytes. Platelets low at 91k/uL (increased from 78k/uL at [facility]). Sodium low at 126. Phosphorus low at 1.8. AST 133. ALT 101. Lipase WNL. CXR showing no active disease in chest, no evidence of pulmonary edema. CT scan of A/P showing no acute processes; a left, small fat-containing inguinal hernia; a right 1cm renal cyst also noted incidentally. Principal Diagnosis Hyponatremia Discharge Exam Constitutional WD/WN, vitals as above Respiratory normal respiratory effort, lungs clear to auscultation Cardiovascular RRR, no murmur, no edema Gastrointestinal (Abdomen) Inspection/Auscultation: abdomen normal to inspection and normal bowel sounds; abdomen not distended Percussion/Palpation: abdomen soft; abdomen nontender Musculoskeletal no cyanosis or clubbing, extremities motor strength 5/5 Skin no rashes, warm and dry Neurologic moves all extremities and awake Psychiatric A+Ox3, euthymic affect Discharge Data Allergies Allergy/AdvReac Type Severity Reaction Status Date / Time brimonidine AdvReac CRUSTY EYES Verified 10/12/19 19:25 Consultations 10/12/19 23:04 ED Decision to Admit Stat 10/15/19 12:28 Consult [facility] prop and effects designer Routine Ordered Studies 10/12/19 19:04 CT abd pelvis IV con only Stat 10/13/19 14:26 CT chest wo con Routine Hospital Course (1) Hyponatremia: Mrs. Maria is a 79 yo woman who presents to [facility] after a recent hospitalization at [facility] with persistent nausea and diminished appetite, found to be hyponatremia on admission. - sodium level 129 on admission, now 135 - clinically patient appears euvolemic - CT chest without acute change or malignancy - COVID was negative at [facility] (2) Hypophosphatemia: - replaced (3) Elevated LFTs: - AST 133, ALT 101 on admission- trending down - INR wnl; suggests no issue with intrinsic liver function - CT scan of a/p showed no structural liver issues - Lyme negative, peripheral smear without evidence of anaplasma - anaplasmosis serology pending - patient denies any recollection of recent tick bite (4) Thrombocytopenia: - resolved (5) Lymphocytosis: - elevated to 6 on admission and trending up slowly - metamyelocytes also present - peripheral smear ordered - lymphocytosis and normocytic anemia. The lymphocytes show some atypical morphology with concern for a leukemia/lymphomatous component. Flow cytometry has been ordered for further evaluation. Discussed this with patient and that she needs to follow up with her pcp (6) Nausea: - persistent; has not vomited since 10/06, eating meals - left abdominal likely musculoskeletal, pain is worse with sitting up or laying back down motions. No rebound tenderness - CT a/p showing no acute findings - Zofran prn (7) Inguinal hernia, left: - noted incidentally on CT scan of abdomen and pelvis - abdomen soft on exam with only mild tenderness (8) Cyst of right kidney: - noted incidentally on CT scan of abdomen and pelvis - 1cm in size (9) HTN (hypertension): - continue home lisinopril and metoprolol succinate - somewhat elevated BP overnight largely asymptomatic except for a headache which resolved with Tylenol. Discussed warning signs with patient and to check blood pressure at home with home cuff. She will need to follow up with her home BP trend with her pcp (10) Glaucoma: - chronic - patient to continue home eye drops while in hospital - no acute management - follow up with supervisor mails for left eye irritation - patient reports it's been mildly irritated since receiving drops she was allergic to at [facility]. Denies any visual changes in that eye. (11) DVT prophylaxis: Enoxaparin Unclear etiology on hyponatremia but given her improvement, elevated LFTs, lymphocytosis possibly viral etiology? Called son per patient's request but no answer Total Time Total Time Spent Total Time Spent (In Minutes): greater than 30 minutes Discharge Plan Discharge Items Patient Disposition: Home - Self-Care Reason For Visit: HYPONATREMIA Discharge Diagnosis: Hyponatremia Activity: Resume your previous activity Activity Comment: gradually as tolerated Driving/Machine Use: Resume 1 day after discharge Non-emergency contact: Primary Care Provider Call non-emergency contact if: you have any medication questions, your symptoms worsen and you have a fever Follow-up/Referrals: Anthony Gao [Primary Care Provider] - Diet: Regular Addtl Attending Provider Instructions: (1) Hyponatremia: Your serum sodium is now normal. - the CT of your chest was normal (2) Elevated LFTs (liver function test): - Your liver function test are improving. Please follow up with your primary care provider this week to have this level rechecked - The CT scan of your abdomen/pelvis did not show any structural liver issues - Your Lyme test was negative, a peripheral smear of your blood was without evidence of anaplasma (tick born disease) - anaplasmosis serology pending - follow up with your primary care provider (3) Thrombocytopenia: - your platelets were low when you were admitted to the hospital but have normalized (4) Lymphocytosis: - elevated lymphocytes (part of your white blood cells) - a peripheral smear of your blood was ordered. Because this showed some atypical cells, flow cytometry has been ordered for further evaluation. As we discussed earlier, lymphocytosis can be a sign of leukemia and the cytology is used to help rule that out. Please follow up with your primary care provider. (5) Inguinal hernia, left: - noted incidentally on CT scan of abdomen and pelvis - possibly represents the source of patient's left sided abdominal pain? - abdomen soft on exam with only mild tenderness, continue to monitor (6) Cyst of right kidney: - noted incidentally on CT scan of abdomen and pelvis - 1cm in size - This is a benign finding, you can follow up with your primary care provider (7) HTN (hypertension): - continue home lisinopril and metoprolol succinate - Your blood pressures were running a bit elevated while you were here. I recommend that you purchase a home blood pressure cuff if you do not have one and check your blood pressure once per day after sitting quietly for at least five minutes with legs uncrossed. Keep a record of the pressures and take to y our next pcp visit. Call your doctor if your blood pressure is over 180 for the top number or 95 for the bottom number. Come to the emergency department if you have chest pain, shortness of breath, visual changes, or palpitations or if you are getting headaches or nose bleeds with a high blood pressure. (8) Glaucoma: - chronic - Please see your eye doctor to follow up with your left eye irritation Pending Studies at Discharge: No Stand-Alone Forms: My [facility], Smoking Cessation Medications and DC Order Prescriptions: Continued multivitamin Tablet 1 tab PO DAILY RF: 0 latanoprost [Xalatan] 0.005 % drops 1 drp OPL QPM RF: 0 potassium chloride [Klor-Con M20] 20 mEq tablet,ER particles/crystals 20 meq PO DAILY RF: 0 timolol maleate [Timoptic] 0.25 % drops 1 drp OPL BID RF: 0 biotin 10,000 mcg Capsule 10,000 mcg PO DAILY RF: 0 lisinopril 10 mg tablet 10 mg PO DAILY RF: 0 metoprolol succinate [Toprol XL] 25 mg tablet extended release 24 hr 25 mg PO DAILY RF: 0 dorzolamide [Trusopt] 2 % Drops 1 drp OPHTHALMIC (EYE) UD RF: 0 calcium carb,glucon-vitamin D2 500 mg calcium -200 unit Tablet 2 tab PO DAILY RF: 0 [place]-3 350 mg-235 mg- 90 mg-597 mg Capsule,Delayed Release(Dr/Ec) 1 cap PO DAILY RF: 0 Discharge Orders: Discharge Order (Routine); Ordered 10/15/19 Ordered By: Laura Sumner/Other Patient Handouts: Discharge Instructions for Hyponatremia Admission Data Admit Date/Time: 10/12/19 23:14 Attending Provider: Alex Romo Admit Provider: Noelle Hadley Primary Care Provider: Anthony Gao Other Providers: Alex Romo Other Interventions: Discharge Summary Assessment (RN) Last Done: 10/15/19 13:17 DC Date/Time DO NOT enter until pt leaves facility: 10/15/19 14:20 Supervising Physician Co-Signing Physician Notes I supervised Laura Adams NP on this patient's care. I examined the patient today independently of her. I discussed the plan of care with her with the plan being as written in her note except for any following changes/exceptions: None. Mild LLQ pain seems MSK in nature. Otherwise, labs overall improving apart from very mild leukocytosis. Possibly viral in nature. Will see PCP to make sure all resolving. Coding Level of Care Code D/C Day Management >30 mins Diagnoses Hyponatremia E87.1 Hypophosphatemia E83.39 Elevated LFTs R79.89 Thrombocytopenia D69.6 Lymphocytosis D72.820 Nausea R11.0 Inguinal hernia, left K40.90 Cyst of right kidney N28.1 HTN (hypertension) I10 Glaucoma H40.9 DVT prophylaxis Z29.9
--- NOTE | 2019-10-18 08:41 | Communication Note ---
Date of Service: October 18, 2019 Ms. Maria's A.phagocytophilum DNA came back positive. Doxycycline 100 mg bid for 10 days sent to her pharmacy and patient was updated by phone to begin this regimen immediately. Currently Ms. Maria reports she is still nauseas but otherwise not feeling too bad. Also discussed her follow up with Nurse Navigator who will arrange for an appointment.
== END 2019-10-15 14:20 | disposition home or self-care (01) | DRG 641 ==
LOC: ED 18:22 → SUATTDRO 23:14 → 3N 23:14

== ENCOUNTER 2020-10-17 07:36 | Observation (INO) ==
--- NOTE | 2020-09-17 12:18 | PAT Medication Instructions ---
Medication Instructions Date of Service September 17, 2020 Home Medications biotin 10,000 mcg PO QAM calcium carb,glucon-vitamin D2 1 tab PO BID dorzolamide [Trusopt] 1 drp OPHTHALMIC (EYE) BID latanoprost [Xalatan] 1 drp OPL HS multivitamin 1 tab PO QAM lisinopril 20 mg PO QAM metoprolol succinate [Toprol XL] 25 mg PO QAM timolol maleate (PF) 1 drp OPHTHALMIC (EYE) BID DO NOT take the morning of surgery biotin 10,000 mcg PO QAM calcium carb,glucon-vitamin D2 1 tab PO BID multivitamin 1 tab PO QAM lisinopril 20 mg PO QAM Take morning of surgery With a small sip of water, OTHERWISE NOTHING TO EAT OR DRINK AFTER MIDNIGHT: dorzolamide [Trusopt] 1 drp OPHTHALMIC (EYE) BID metoprolol succinate [Toprol XL] 25 mg PO QAM timolol maleate (PF) 1 drp OPHTHALMIC (EYE) BID Take evening before surgery calcium carb,glucon-vitamin D2 1 tab PO BID dorzolamide [Trusopt] 1 drp OPHTHALMIC (EYE) BID latanoprost [Xalatan] 1 drp OPL HS timolol maleate (PF) 1 drp OPHTHALMIC (EYE) BID Other Notes If you have any questions please call us at [phone] or [phone] or [phone] or [phone]
--- NOTE | 2020-09-18 10:23 | Anesthesiology Consultation ---
Date of Service September 18, 2020 Assessment & Plan (1) Encounter for pre-operative examination: COVID Status: As of 09/18 assessment, patient denies travel to endemic area, known exposure/sick contacts, or symptoms of COVID19. Patient advised to follow social distancing guidelines, wear a mask in public between now and surgery. Patient denies any impending travel plans/large gatherings/events (other than a [employer] day gathering for veterans, but that is > 2 wks before surgery). Preoperative COVID19 testing to be completed prior to surgery per surgeon's arrangements. Patient made aware to self-isolate as much as possible between COVID testing and surgery. Pt is fully vaccinated. Chart Review Chart Review: Acceptable Risk for Surgery and Patient seen in Pre Admission Testing Teaching & Discussion Instructed NPO after midnight before surgery, except medications with 15 cc of water. Medication instructions provided according to the PAT guidelines. History Surgery Operation Date: 10/17/20 08:15 Proposed Procedures p Left Total Knee Arthroplasty - Anthony Blackwell DO Height/Weight Height: 5 ft Weight: 53.7 kg Allergies Allergy/AdvReac Type Severity Reaction Status Date / Time nickel Allergy Unknown INFECTED Verified 09/12/20 08:57 EARS brimonidine AdvReac CRUSTY EYES Verified 09/12/20 08:57 Medications Home Medications Medication Instructions Recorded Confirmed Last Taken biotin 10,000 mcg PO QAM 10/12/19 09/12/20 Unknown calcium carb,glucon-vitamin D2 1 tab PO BID 10/12/19 09/12/20 Unknown dorzolamide [Trusopt] 1 drp OPHTHALMIC (EYE) BID 10/12/19 09/12/20 Unknown latanoprost [Xalatan] 1 drp OPL HS 10/12/19 09/12/20 Unknown multivitamin 1 tab PO QAM 10/12/19 09/12/20 Unknown lisinopril 20 mg PO QAM 09/12/20 09/12/20 Unknown metoprolol succinate [Toprol XL] 25 mg PO QAM 09/12/20 09/12/20 Unknown timolol maleate (PF) 1 drp OPHTHALMIC (EYE) BID 09/12/20 09/12/20 Unknown Past Medical History Medical History Chronic back pain Dvt femoral (deep venous thrombosis) POST OP [id number] ISSUES SINCE Glaucoma HTN (hypertension) Exercise / Class Metabolic Activity II 4-5 Yardwork/Stairs/Walk up hill (Limited in speed by knee pain, but does 1 FOS many times per day at home without SOB or CP) Past Family History Family History Aunt Family history of diabetes mellitus Uncle Family history of diabetes mellitus Denies family history of Ovarian cancer Prostate cancer Myocardial infarction Breast cancer Colorectal cancer Past Surgical History Surgical History (Updated 09/18/20 @ 10:20 by Alvarado Mcdonald) H/O hysterectomy with oophorectomy History of bunionectomy 1999 History of cardiac cath REMOTE HX, > 10YRS AGO -[facility] BENIGN. PT THINKS THIS WAS DONE FOR SOB. History of colonoscopy History of eye surgery FOR GLAUCOMA-RIGHT EYE Hx of cataract surgery R/L Past Anesthesia History No Hx of Anesthesia Complications and No Family Hx of Anesthesia Complications History of PONV No Hx of PONV and No Hx of Motion Sickness Social History Smoking Status: Former smoker tobacco type: cigarettes Do You Dip or Chew Tobacco: No Smoking End Date: QUIT 20-30 YRS AGO Hx Alcohol Use: Yes Alcohol type: hard liquor alcohol intake frequency: holidays/special occasions only Alcohol Intake Frequency Comment: 1 X MONTH Hx Substance Use: No Review of Systems Pt denies any recent chest pain, shortness of breath, palpitations, cough, fever, URI, or uncontrolled acid reflux. Physical Exam Vital Signs BP: 177/76 (pt is visibly anxious) rpt 148/82 manual LUE P: 68bpm SPO2: 99% RA T: 98.7 F R: 12 ENMT Mouth: no dental restorations, no chipped teeth and no loose teeth Thyromental Distance: > or= 3.5 Finger Breadths Mallampati Class: I Neck normal visual inspection; neck extension not limited Respiratory normal respiratory effort, lungs clear to auscultation Cardiovascular RRR, no murmur, no edema Vessels: no carotid bruit Testing Laboratory Results 09/18/20 10:40 09/18/20 10:40 PT 10.2 Seconds (9.0-12.0) 09/18/20 10:40 INR 1.0 (0.9-1.1) 09/18/20 10:40 APTT 27.1 Seconds (21.0-31.0) 09/18/20 10:40 Hemoglobin A1c 5.3 % (4.5-5.6) 09/18/20 10:40 Urine Color Yellow 09/18/20 10:40 Urine Appearance Clear (Clear) 09/18/20 10:40 Urine pH 7.0 (4.5-7.5) 09/18/20 10:40 Ur Specific [place] 1.020 (1.000-1.030) 09/18/20 10:40 Urine Protein Negative (Negative) 09/18/20 10:40 Urine Glucose (UA) Negative (Negative) 09/18/20 10:40 Urine Ketones Negative (Negative) 09/18/20 10:40 Urine Nitrite Negative (Negative) 09/18/20 10:40 Ur Leukocyte Esterase Negative (Negative) 09/18/20 10:40 Blood Type A Positive 09/18/20 10:40 Antibody Screen NEGATIVE 09/18/20 10:40 Electrocardiogram Date: 09/18/20 Findings: + NSR @ (68bpm) With sinus arrhythmia. Chest X-Ray Date: 09/18/20 Findings: + NAD
--- NOTE | 2020-09-18 11:36 | XRay Report ---
XR chest Pre-admission PA/Lat CLINICAL HISTORY: Preoperative evaluation. COMPARISON STUDY: Chest radiograph October 12, 2019. Chest CT October 13, 2019. FINDINGS: Lung volumes are normal. Lungs are clear. There is no pneumothorax or pleural effusion. Car diac size is normal. Mediastinal contours are normal. There is no evidence for pulmonary edema. IMPRESSION: No acute cardiopulmonary findings. ACT 112: Negative or not required by law. Electronically signed by: Ganga Perez M.D. 09/18/2020 11:34 AM
[2020-09-18 11:40] LABS: Basophils # (auto) 0.05 K/uL (0-0.2); Basophils % (auto) 0.6 %; Eosinophils # (auto) 0.27 K/uL (0-0.5); Eosinophils % (auto) 3.2 %; Hematocrit (blood only) 37.6 % (37-47); Hemoglobin 12.5 g/dL (12.0-16.0); Immature Granulocytes # (auto) 0.04 K/uL (0.00-0.02); Immature Granulocytes % (auto) 0.5 %; Lymphocytes # (auto) 2.88 K/uL (1.2-3.4); Lymphocytes % (auto) 34.2 %; Mean Corpuscular Hemoglobin 29.1 pg (25-34); Mean Corpuscular Hgb Conc 33.2 g/dL (32-36); Mean Corpuscular Volume 87.6 fL (80-100); Mean Platelet Volume 10.2 fL (7.4-10.4); Monocytes # (auto) 0.51 K/uL (0.11-0.59); Monocytes % (auto) 6.1 %; Neutrophils # (auto) 4.67 K/uL (1.4-6.5); Neutrophils % (auto) 55.4 %; Platelet Count 286 K/uL (130-400); RDW Coefficient of Variation 13.2 % (11.5-14.5); RDW Standard Deviation 42.3 fL (36.4-46.3); Red Blood Count 4.29 M/uL (4.2-5.4); White Blood Count 8.42 K/uL (4.8-10.8)
[2020-09-18 11:44] LABS: Appearance Urine Clear (Clear); Bilirubin Urine Negative (Negative); Blood Urine Negative (Negative); Color Urine Yellow; Glucose Urine UA Negative (Negative); Ketones Urine Negative (Negative); Leukocyte Esterase Urine Negative (Negative); Nitrite Urine Negative (Negative); Protein Urine Negative (Negative); Urobilinogen Urine Negative (Negative)
[2020-09-18 11:53] LABS: Partial Thromboplastin Time 27.1 Seconds (21.0-31.0); Prothrombin Time 10.2 Seconds (9.0-12.0)
--- NOTE | 2020-09-18 12:08 | Electrocardiogram Report ---
Test Reason : Blood Pressure : / mmHG Vent. Rate : 068 BPM Atrial Rate : 068 BPM P-R Int : 150 ms QRS Dur : 084 ms QT Int : 398 ms P-R-T Axes : 086 073 063 degrees QTc Int : 423 ms Normal sinus rhythm with sinus arrhythmia Abnormal ECG When compared with ECG of 12-OCT-2019 18:30, Questionable change in QRS axis Confirmed by Gustavo Jimenez ([id number]) on 09/18/2020 12:07:32 PM Referred By: Anthony Blackwell Confirmed By:Jaleel Jimenez
[2020-09-18 12:09] LABS: Estimated Average Glucose 105 mg/dl; Hemoglobin A1C 5.3 % (4.5-5.6)
[2020-09-18 12:19] LABS: Albumin Level 3.9 gm/dl (3.4-5.0); Calcium 9.6 mg/dl (8.5-10.1); Creatinine Clr Calc Pharmacy 52.9 ml/min; Est GFR (African American) 99.6 ml/min; Est GFR (Non-African American) 85.9 ml/min; Potassium 4.1 mmol/L (3.5-5.1)
--- NOTE | 2020-09-26 16:52 | History & Physical Report ---
Date of Service September 26, 2020 date of surgery: 10/17/20 Procedure: Left Total Knee Arthroplasty Assessment & Plan (1) Arthritis of knee, left: Further care discussed with patient and at this point in time has failed conservative measures and would like to proceed with a left total knee repla cement. Plan on discharge will be home with home health physical therapy. DVT prophalaxis with TEDs, SCDs and will also place on Xarelto for a month postop, has h/o DVT after foot surgery in her past. Patient will have follow up appointment in our office two weeks post op for staple/suture removal and re- evaluation. Patient otherwise has no other questions or concerns. The risks and benefits have been discussed including, but not limited to, risk of infection, nerve injury, stiffness, loss of motion, failure to improve, etc. Reasonable outcomes and options of treatment were discussed. An explanation of appropriate alternatives to the procedure that may be advantageous were discussed and their risks and benefits, as well as the risks and benefits of not proceeding with treatment. I offered to answer any additional inquiries concerning the treatment involved. All the patient's questions were answered. The patient is agreeable, understanding of the treatment plan and alternatives, and wishes to proceed with the treatment plan. History of Present Illness Chief Complaint: left knee pain Primary Care Provider: Silvio Lugo III, ARIELLA leonor is a 80 year old female who complains of left knee pain, presents for pre-op evaluation prior to Left total knee replacement at [facility]. she complains of pain, decreased range of motion, instability and stiffness. Currently the patient states that the symptoms are moderate-severe. The pain is described as aching, sharp and throbbing. The symptoms are aggravated by ascending stairs, daily activities, first steps while awake walking. Prior NSAIDs include IBU and Aleve. she has been treated with multiple previous cortisone injections in the past without much relief. Allergies Allergy/AdvReac Type Severity Reaction Status Date / Time nickel Allergy Unknown INFECTED Verified 09/12/20 08:57 EARS brimonidine AdvReac CRUSTY EYES Verified 09/19/20 11:20 Home Medications Medication Instructions Recorded Confirmed Type biotin 10,000 mcg PO QAM 10/12/19 09/19/20 History calcium carb,glucon-vitamin D2 1 tab PO BID 10/12/19 09/19/20 History dorzolamide [Trusopt] 1 drp OPHTHALMIC (EYE) BID 10/12/19 09/19/20 History latanoprost [Xalatan] 1 drp OPL HS 10/12/19 09/19/20 History multivitamin 1 tab PO QAM 10/12/19 09/19/20 History lisinopril 20 mg PO QAM 09/12/20 09/19/20 History metoprolol succinate [Toprol XL] 25 mg PO QAM 09/12/20 09/19/20 History timolol maleate (PF) 1 drp OPHTHALMIC (EYE) BID 09/12/20 09/19/20 History Past Med/Surg History Medical History Chronic back pain Dvt femoral (deep venous thrombosis) POST OP [id number] ISSUES SINCE Glaucoma HTN (hypertension) Surgical History H/O hysterectomy with oophorectomy History of bunionectomy 1999 History of cardiac cath REMOTE HX, > 10YRS AGO -[facility] BENIGN. PT THINKS THIS WAS DONE FOR SOB. History of colonoscopy History of eye surgery FOR GLAUCOMA-RIGHT EYE Hx of cataract surgery R/L Family History Aunt Family history of diabetes mellitus Uncle Family history of diabetes mellitus Denies family history of Ovarian cancer Prostate cancer Myocardial infarction Breast cancer Colorectal cancer Social History Smoking Status: Former smoker Tobacco Type: Cigarettes Second Hand Exposure: Yes (FAMILY SMOKED); Hx Alcohol Use: Yes Alcohol type: hard liquor Hx Substance Use: No Preferred Language: Sinhala Communication Ability: Effective Visual Impairment: Limited Hearing Ability: Normal Admission Nurse Required: No Beliefs That Will Affect Care: None marital status: Current Living Situation: Alone current occupational status: retired Feels Safe at Home: Yes Childhood Exposure to Second-Hand Smoke: No Seatbelt Use: always Sunscreen Use: Yes Assistive Devices: Glasses Review of Systems Review of Systems: All systems reviewed & are unremarkable except as noted in HPI & below Constitutional: no fever, no chills and no sweats Respiratory: no cough and no dyspnea Cardiovascular: no chest pain, no dyspnea and no orthopnea Gastrointestinal: no abdominal pain, no nausea and no vomiting Musculoskeletal: as per Subjective / HPI Physical Exam Physical Exam: HT: 5ft WT: 53.7kg Constitutional: WD/WN, vitals as above no acute distress Respiratory: normal respiratory effort, lungs clear to auscultation no respiratory distress, no labored breathing and does not use accessory muscles Cardiovascular: RRR, no murmur, no edema Gastrointestinal (Abdomen): normal bowel sounds, soft, nontender, no hepatosplenomegaly Musculoskeletal: Knee: + knee abnormal to inspection (Left Knee- ), + effusion (+1 effusion), + limited ROM of knee (ROM 0/3/110), + knee ROM with crepitation, + joint line tenderness (medial joint line) and + Lloyd's sign positive; no deformity, no skin erythema, no ecchymosis, no valgus laxity, no varus laxity, anterior drawer test negative, Solo's sign negative and pivot shift test negative Results & Data Results & Data ([facility]) Laboratory Results Laboratory Results WBC 8.42 K/uL (4.8-10.8) 09/18/20 10:40 RBC 4.29 M/uL (4.2-5.4) 09/18/20 10:40 Hgb 12.5 g/dL (12.0-16.0) 09/18/20 10:40 Hct 37.6 % (37-47) 09/18/20 10:40 MCV 87.6 fL (80-100) 09/18/20 10:40 MCH 29.1 pg (25-34) 09/18/20 10:40 MCHC 33.2 g/dL (32-36) 09/18/20 10:40 RDW Std Deviation 42.3 fL (36.4-46.3) 09/18/20 10:40 RDW Coeff of Beth 13.2 % (11.5-14.5) 09/18/20 10:40 Plt Count 286 K/uL (130-400) 09/18/20 10:40 MPV 10.2 fL (7.4-10.4) 09/18/20 10:40 Immature Gran % (Auto) 0.5 % 09/18/20 10:40 Neut % (Auto) 55.4 % 09/18/20 10:40 Lymph % (Auto) 34.2 % 09/18/20 10:40 [place] % (Auto) 6.1 % 09/18/20 10:40 Eos % (Auto) 3.2 % 09/18/20 10:40 Baso % (Auto) 0.6 % 09/18/20 10:40 Neut # (Auto) 4.67 K/uL (1.4-6.5) 09/18/20 10:40 Lymph # (Auto) 2.88 K/uL (1.2-3.4) 09/18/20 10:40 [place] # (Auto) 0.51 K/uL (0.11-0.59) 09/18/20 10:40 Eos # (Auto) 0.27 K/uL (0-0.5) 09/18/20 10:40 Baso # (Auto) 0.05 K/uL (0-0.2) 09/18/20 10:40 Immature Gran # (Auto) 0.04 K/uL (0.00-0.02) H 09/18/20 10:40 PT 10.2 Seconds (9.0-12.0) 09/18/20 10:40 INR 1.0 (0.9-1.1) 09/18/20 10:40 APTT 27.1 Seconds (21.0-31.0) 09/18/20 10:40 PTT Ratio 1.0 09/18/20 10:40 Sodium 138 mmol/L (136-145) 09/18/20 10:40 Potassium 4.1 mmol/L (3.5-5.1) 09/18/20 10:40 Chloride 104 mmol/L (98-107) 09/18/20 10:40 Carbon Dioxide 31 mmol/L (21-32) 09/18/20 10:40 Anion Gap 3.0 (3-11) 09/18/20 10:40 BUN 20 mg/dl (7-18) H 09/18/20 10:40 Creatinine 0.63 mg/dl (0.6-1.2) 09/18/20 10:40 Est Cr Clr Drug Dosing 52.9 ml/min 09/18/20 10:40 Est GFR ( Amer) 99.6 ml/min 09/18/20 10:40 Est GFR (Non-Af Amer) 85.9 ml/min 09/18/20 10:40 BUN/Creatinine Ratio 32.0 (10-20) H 09/18/20 10:40 Glucose 97 mg/dl (70-99) 09/18/20 10:40 Estimat Average Glucose 105 mg/dl 09/18/20 10:40 Hemoglobin A1c 5.3 % (4.5-5.6) 09/18/20 10:40 Calcium 9.6 mg/dl (8.5-10.1) 09/18/20 10:40 Albumin 3.9 gm/dl (3.4-5.0) 09/18/20 10:40 Urine Color Yellow 09/18/20 10:40 Urine Appearance Clear (Clear) 09/18/20 10:40 Urine pH 7.0 (4.5-7.5) 09/18/20 10:40 Ur Specific [place] 1.020 (1.000-1.030) 09/18/20 10:40 Urine Protein Negative (Negative) 09/18/20 10:40 Urine Glucose (UA) Negative (Negative) 09/18/20 10:40 Urine Ketones Negative (Negative) 09/18/20 10:40 Urine Blood Negative (Negative) 09/18/20 10:40 Urine Nitrite Negative (Negative) 09/18/20 10:40 Urine Bilirubin Negative (Negative) 09/18/20 10:40 Urine Urobilinogen Negative (Negative) 09/18/20 10:40 Ur Leukocyte Esterase Negative (Negative) 09/18/20 10:40 Blood Type A Positive 09/18/20 10:40 Antibody Screen NEGATIVE 09/18/20 10:40 Impressions Chest X-Ray 09/18/20 08:22 XR chest Pre-admission PA/Lat CLINICAL HISTORY: Preoperative evaluation. COMPARISON STUDY: Chest radiograph October 12, 2019. Chest CT October 13, 2019. FINDINGS: Lung volumes are normal. Lungs are clear. There is no pneumothorax or pleural effusion. Cardiac size is normal. Mediastinal contours are normal. There is no evidence for pulmonary edema. IMPRESSION: No acute cardiopulmonary findings. ACT 112: Negative or not required by law. Electronically signed by: Ganga Perez M.D. 09/18/2020 11:34 AM Diagnostic Findings Left Knee X-ray: left knee series confirm advanced degenerative changes to the left knee, tricompartmental DJD, showing joint space narrowing, osteophyte formation and subchondral sclerosis. no acute bony pathology noted. overall valgus alignment.
[~2020-10-17 07:36] MED LIST: ACETAMINOPHEN 500 MG TAB PO SCH; CeleBREX 200 MG CAP PO SCH; FAMOTIDINE 20 MG TAB PO SCH; GABAPENTIN 300 MG CAP PO SCH; LR 500ML BOLUS, THEN 15ML/HR IV SCH; METOCLOPRAMIDE HCL 10 MG TABLET PO SCH; ROPIVACAINE 0.5% HCL/PF 150 MG, BUPIVACAINE 0.75% MPF 20 ML, EPINEPHrine 30MG/30ML (OR ... INSTIL SCH; TRANEXAMIC ACID 1,000 MG **IV Intra-op IV SCH; TRANEXAMIC ACID 1,000 MG **IV Pre-op IV SCH; ceFAZolin 2000MG 2,000 MG/15 ML SYR IV SCH; oxyCODONE HCL 10 MG TABCR (OxyCONTIN) PO SCH
[2020-10-17] MEDS ORDERED: BUPIVACAINE 0.5 % 5 MG/1 ML PF 10ML VIAL ONE (07:42)
[2020-10-17] MEDS ORDERED: BUPIVACAINE 0.25% 30 ML VIAL ONE (07:42)
--- NOTE | 2020-10-17 08:48 | History & Physical Bridge Note ---
Date of Service October 17, 2020 History & Physical Bridge Note I have examined the patient, reviewed the History & Physical and in the interval since the performance of the History & Physical I have noted the following changes of clinical significance: no changes noted
[2020-10-17] MEDS ORDERED: KETAMINE 50 MG/5 ML SYRINGE ONE (08:58)
[2020-10-17] MEDS ORDERED: MIDAZOLAM HCL 1 MG/ML 2ML VIAL ONE (08:58)
[2020-10-17] MEDS ORDERED: ORTHO JOINT ANESTHETIC ONE (09:30)
[2020-10-17] MEDS ORDERED: GLYCOPYRROLATE 0.2 MG/ML VIAL ONE (11:04)
[2020-10-17] MEDS ORDERED: ONDANSETRON INJ 2 MG/ML 2 ML VIAL ONE (11:04)
[2020-10-17] MEDS ORDERED: PROPOFOL IV EMULSION 10 MG/ML 20 ML VIAL IV ONE (11:04)
[2020-10-17] MEDS ORDERED: LIDOCAINE 2% 2 ML VIAL/AMP(20MG/ML) INFIL ONE (11:04)
--- NOTE | 2020-10-17 12:07 | Operative Report ---
Post Operative Report Pre & Post Diagnosis Operation Date: 10/17/20 10:15 Pre-Op Diagnosis: Osteoarthritis Knee Left Post-Op Diagnosis: Osteoarthritis Knee Left I identified the patient and participated in the time-out.: Yes Procedure Operation Date: 10/17/20 10:15 Actual Procedures p Left Total Knee Arthroplasty(Left utilizing Lane [employer] journey 2 patient matched total knee arthroplasty size 4 femur 3 tibia with a 70 mm stem 29 polyethylene 13 mm constrained poly-- Anthony Blackwell DO Surgeon Anthony Blackwell DO Compliance Quality Performance Analyst Kenji SEVILLA Estimated Blood Loss 5 Findings Consistent with Post-Op Diagnosis Patient presents with severe end-stage tricompartmental degenerative joint disease [id number] eburnated patellofemoral [id number] 10 degree valgus alignment 5 degree flexion contracture eburnated [id number] with marginal osteophyte subchondral sclerosis subchondral cystic changes Specimens Bone and cartilage Drains Medium bore Hemovac Anesthesia Type MAC Epidural Regional Complications none Disposition Accompanied Patient To Recovery: No Disposition: Recovery Room Indications Patient presents with severe end-stage tricompartmental degenerative joint disease no response to conservative management valgus alignment eburnated subchondral [id number] no response to conservative management clinic physical therapy anti-inflammatories relative rest activity modification corticosteroid injection. Description of Procedure After proper prepping and draping of the left lower extremity anterior midline incision was made over the region of the extensor extensor mechanism after meticulous hemostasis was obtained and maintained in subcutaneous tissues a medial parapatellar incision was made The patella was subluxed lateralward the medial lateral gutter were cleaned from any hypertrophic synovitis and scar tissue of the distal femoral block was placed and the distal femoral osteotomy cut was made subsequently the chamfers anterior and posterior osteotomy cuts were made utilizing the 4-in-1 block the tibia was subsequently subluxed anteriorward medial and ateral meniscal remnants were excised in their entirety remnants of the anterior and posterior cruciate ligaments were excised in their entirety excellent exposure of the proximal tibia was obtained the tibial osteotomy guide was placed on the proximal tibial osteotomy cut was made once again the knee was irrigated with copious amounts of sterile saline solution the patella was subsequently everted lateralward thickened scar tissue around the patella was removed the patella was subsequently cut utilizing a freehand technique and was drilled prepared for final preparation and placement of pat cherelle socially flexion-extension gaps were checked and the equal and symmetric trials were placed to the appropriate femoral and tibial trials with poly-spacer being placed for equal flexion and extension gaps and full range of motion including extension to 0 and flexion to 140 the trial components after having been taken to recovery range of motion was subsequently removed meticulous hemostasis was obtained and maintained subsequently a knee block injection of joint cocktail including ropivacaine 0.5% 150 mg. Bupivacaine 0.5% epinephrine 1-200,030 mL's toradol 30 mg dexamethasone 4 mg ketamine 10 mg clonidine 100 micrograms normal saline solution 30 mg was infiltrated into the soft tissues of the posterior knee medial lateral gutters and periosteal synovium special attention was paid to protect neurovascular structures at all times subsequently trial components having been removed the knee was irrigated with sterile saline solution. debris was removed the proximal tibia was subsequently prepared and was made ready for the placement of the tibial component tibial component was also cemented and tamped into position the femoral component was subsequently placed and cemented in the position the patellar component was subsequently cemented in position because hemostasis once again obtained and maintained wound having been thoroughly irrigated with debridement and debridement lavage was performed as well as a medial parapatellar incision closed with #1 Vicryl in interrupted fashion subcutaneous was closed with #2 Vicryl skin was closed with skin clips. PA-C was necessary for prepping and drapping as well as wound closure of deep fascia Sub cutaneous tissue and skin and was necessary for the case. A sterile compressive dressing was placed patient was taken to recovery in stable condition of report dictated by Rishi I attest to the content of the Intraoperative Record and any orders documented therein. Any exceptions are noted below. I attest to the content of the Intraoperative Record and any orders documented therein. Any exceptions are noted below.
[2020-10-17] MEDS ORDERED: LABETALOL HCL IV 5 MG/ML 20ML IV ONE (13:27)
[2020-10-17] MEDS: LABETALOL HCL IV 5 MG/ML 20ML IV PRN ×2 (13:28→13:40)
--- NOTE | 2020-10-17 13:35 | XRay Report ---
XR knee LT 1 or 2V routine CLINICAL HISTORY: Surgical Post Op COMPARISON: None FINDINGS: Alignment of the total left knee arthroplasty is anatomic. There is no periprosthetic frac ture or unexpected radiopaque foreign body. There are surgical drains. IMPRESSION: Expected findings following total left knee arthroplasty. ACT 112: Negative or not required by law. Electronically signed by: Ganga Perez M.D. 10/17/2020 1:34 PM
--- NOTE | 2020-10-17 13:38 | Anesthesiology Progress Note ---
Date of Service October 17, 2020 Anesthesia Post Procedure Vital Signs Vital Signs: Temp Pulse Pulse Resp BP Pulse Ox 10/17/20 13:25 71 16 183/80 H 100 10/17/20 13:15 72 15 182/71 H 100 10/17/20 13:05 76 12 175/80 H 100 10/17/20 12:59 37.1 C 81 15 182/82 H 98 10/17/20 09:23 69 20 176/71 H 96 10/17/20 08:13 37.0 C 78 20 201/93 H 97 Transfer of Care Handoff Completed per policy Notes Mental Status: alert / awake / arousable and participated in evaluation Patient Amnestic to Procedure: Yes Nausea / Vomiting: adequately controlled Pain: adequately controlled Airway Patency, RR, SpO2: stable & adequate BP & HR: stable & adequate Hydration State: stable & adequate Neuraxial Anesthesia: was administered and sensory block is resolving Anesthetic Complications: no major complications apparent and Pt Satisfied with anesthetic care
[2020-10-17] MEDS ORDERED: bisacodyL 10 MG SUPP PR PRN (14:54)
[2020-10-17] MEDS ORDERED: ONDANSETRON INJ 2 MG/ML 2 ML VIAL IV PRN (14:54)
[2020-10-17] MEDS ORDERED: NALOXONE HCL 0.4 MG/1 ML VIAL/CARP IV PRN (14:54)
[2020-10-17] MEDS ORDERED: HYDROmorphone INJ 0.5 MG/0.5 ML SYR IV PRN (14:54)
[2020-10-17] MEDS ORDERED: MAGNESIUM HYDROXIDE SUSP 30 ML UDC PO PRN (14:54)
[2020-10-17] MEDS: SODIUM CHLORIDE 0.9% 1000ML 1,000 ML IV SCH (15:27)
[2020-10-17] MEDS: ceFAZolin 1000MG 1,000 MG/7.5 ML SYR IV SCH (17:20)
[2020-10-17] MEDS: ACETAMINOPHEN 500 MG TAB PO SCH ×2 (17:20→21:42)
[2020-10-17] MEDS: FERROUS GLUCONATE 324 MG TAB PO SCH (17:20)
[2020-10-17] MEDS: DORZOLAMIDE HCL 2% OPH SOLN 10 ML BTL OP SCH (20:59)
[2020-10-17] MEDS ORDERED: SENNA 8.6 MG TAB PO SCH (21:00)
[2020-10-17] MEDS ORDERED: LATANOPROST 0.005% OP SOLN 2.5 ML BTL OPL SCH (21:00)
[2020-10-17] MEDS: TIMOLOL MALEATE 0.25% OP SOLN 5 ML BTL OP SCH (21:00)
[2020-10-17] MEDS ORDERED: METOPROLOL TARTRATE 25 MG TAB PO STA (21:01)
--- NOTE | 2020-10-17 21:13 | Consultation ---
Date of Consultation October 17, 2020 Assessment & Plan (1) Status post total left knee replacement: By Dr Blackwell today. Stable in the immediate post-op period. BPs elevated - see below. DVT proph - xarelto 10mg daily. Defer pain management and disposition to orthopedics. (2) HTN (hypertension): Patient took metoprolol succinate this am but not her SANYA inhibitor as directed. Will give additional metoprolol in the form of metoprolol tartate 25mg po x 1 now. Resume lisinopril in am if creatinine is stable. (3) Glaucoma: Continue home drops. (4) Abnormal CBC: pre-op CBC was normal with normal differential. previous peripheral smear and flow cytometry were worrisome for possible lymphoma but patient was seen by Dr Harry Granados at the [facility] and it was felt that she did not have a hematological malignancy. she has scheduled f/u with Dr Granados in 12/2020. she will have a repeat CBC in am tomorrow to ensure no significant acute blood loss anemia. (5) Left flank pain: long-standing back pain. much of the pain is over the left flank / left paraspinal region. I recommended to the patient that she have imaging as an outpatient for this. (6) Thyroid nodule: recommend outpatient thyroid u/s. Advised patient to f/u with PCP to arrange this. (7) History of DVT (deep vein thrombosis): Provoked. 1999. Following podiatric surgery. Agree with xarelto 10mg daily for DVT prophylaxis as chosen by orthopedic team. (8) DVT prophylaxis: xarelto 10mg daily Thank you for this consult. Our team will follow with you. History of Present Illness Requesting Physician: Anthony Blackwell DO Reason for Consultation: post-op medical management Attending Physician: Anthony Blackwell DO History of Present Illness 80yo female with history of HTN and glaucoma who presented today for elective left total knee replacement. I saw her post-op on the orthopedic floor. Her only complaint was that of dry mouth. She has eaten since surgery without difficulty. No chest pain, dyspnea, nausea, or emesis. Allergies Allergy/AdvReac Type Severity Reaction Status Date / Time nickel Allergy Unknown INFECTED Verified 10/17/20 08:08 EARS brimonidine AdvReac CRUSTY EYES Verified 10/17/20 08:08 Home Medications Medication Instructions Recorded Confirmed Type biotin 10,000 mcg PO QAM 10/12/19 10/17/20 History calcium carb,glucon-vitamin D2 1 tab PO BID 10/12/19 10/17/20 History dorzolamide [Trusopt] 1 drp OPHTHALMIC (EYE) BID 10/12/19 10/17/20 History latanoprost [Xalatan] 1 drp OPL HS 10/12/19 10/17/20 History multivitamin 1 tab PO QAM 10/12/19 10/17/20 History timolol maleate (PF) 1 drp OPHTHALMIC (EYE) BID 09/12/20 10/17/20 History lisinopril 20 mg tablet 20 mg PO QAM #90 tab 10/05/20 10/17/20 Rx metoprolol succinate 25 mg 25 mg PO QAM #90 tab 10/05/20 10/17/20 Rx tablet,extended release 24 hr Patient History Medical History (Updated 10/17/20 @ 21:21 by Pollo Earl) Abnormal CBC lymphocytes; 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. PT THINKS THIS WAS DONE FOR SOB. History of colonoscopy History of eye surgery FOR GLAUCOMA-RIGHT EYE Hx of cataract surgery R/L Family History Aunt Family history of diabetes mellitus Uncle Family history of diabetes mellitus Father Myocardial infarction Mother Parkinsons disease Denies family history of Ovarian cancer Prostate cancer Breast cancer Colorectal cancer Social History (Updated 10/17/20 @ 21:10 by Pollo Earl) Smoking Status: Former smoker Tobacco Type: Cigarettes packs per day: 0.5; Years Smoked: 15; Smoking End Date: QUIT 20-30 YRS AGO; Second Hand Exposure: Yes (FAMILY SMOKED); Do You Dip or Chew Tobacco: No; Hx Alcohol Use: Yes Alcohol type: hard liquor Alcohol Intake Frequency: Monthly or Less Hx Substance Use: No Preferred Language: Czech Communication Ability: Effective Visual Impairment: Limited Hearing Ability: Normal Financial Legal Assistant Required: No Beliefs That Will Affect Care: None marital status: / Current Living Situation: Alone Current Living Situation Comment: [place] current occupational status: retired How many Children do You have: 2 Other Information That Helps Us Care for You: No Feels Safe at Home: Yes Safety Concerns: Feels Safe At This Time Childhood Exposure to Second-Hand Smoke: No Seatbelt Use: always Sunscreen Use: Yes Assistive Devices: Glasses Review of Systems Constitutional: no fever, no chills, no sweats, no anorexia and no weight loss Eyes: + worsening vision left eye - ptosis Ear, Nose, Mouth, Throat: no nasal congestion, no sore throat and no dysphagia Respiratory: no cough and no dyspnea Cardiovascular: no chest pain Gastrointestinal: no abdominal pain, no nausea, no vomiting and no diarrhea/loose stools Genitourinary: no dysuria Musculoskeletal: + joint pain (left knee ) Integumentary: no rash Neurologic: no localized weakness and no loss of sensation Psychiatric: no depression Endocrine: denies diabetes Hematologic / Lymphatic: no lymphadenopathy, no night sweats and no unexplained weight loss Physical Exam Constitutional: well developed and well nourished; no acute distress and no altered mental status Eyes: PERRL ptosis - left eye ENMT: Mouth: + dry oral mucous membranes Neck: trachea midline Thyroid: + thyroid nodule (left upper lobe thyroid); thyroid nontender Respiratory: no respiratory distress Auscultation: + crackles (bases - mild ); no wheezes Cardiovascular: Rate/Rhythm: regular rate and regular rhythm Heart Sounds: normal S1 and normal S2; no murmur Vessels: posterior tibial pulses present and dorsalis pedis pulses present; no JVD Extremities: no edema Gastrointestinal (Abdomen): normal bowel sounds, soft, nontender, no hepat osplenomegaly Musculoskeletal: left knee dressings intact; drain in place. back - mild tenderness left flank/left paraspinal region to palpation. No pain over t-spine or l-spine. Skin: no rashes, warm and dry Neurologic: moves all extremities Psychiatric: A+Ox3, euthymic affect Lymphatic: no cervical lymphadenopathy Results & Data ([facility]) Vital Signs (Past 12 Hours) Vital Signs Temp Pulse Pulse Resp BP Pulse Ox 10/17/20 19:00 36.4 C L 67 15 173/75 H 94 10/17/20 17:10 36.4 C L 61 15 178/74 H 94 10/17/20 16:14 36.4 C L 65 17 179/71 H 94 10/17/20 15:01 36.5 C 70 17 174/75 H 100 10/17/20 15:00 36.5 C 71 15 174/75 H 97 10/17/20 14:45 36.6 C 68 14 173/67 H 100 10/17/20 14:30 67 14 176/76 H 100 10/17/20 14:15 68 10 L 172/73 H 92 10/17/20 14:00 69 10 L 157/68 H 92 10/17/20 13:45 36.6 C 70 12 162/75 H 93 10/17/20 13:35 68 10 L 176/71 H 97 10/17/20 13:25 71 16 183/80 H 100 10/17/20 13:15 72 15 182/71 H 100 10/17/20 13:05 76 12 175/80 H 100 10/17/20 12:59 37.1 C 81 15 182/82 H 98 10/17/20 09:23 69 20 176/71 H 96 Laboratory Results Labs 09/18/20 09/18/20 09/18/20 10:40 10:40 10:40 WBC 8.42 RBC 4.29 Hgb 12.5 Hct 37.6 MCV 87.6 MCH 29.1 MCHC 33.2 RDW Std Deviation 42.3 RDW Coeff of Beth 13.2 Plt Count 286 MPV 10.2 Immature Gran % (Auto) 0.5 Neut % (Auto) 55.4 Lymph % (Auto) 34.2 Cloud % (Auto) 6.1 Eos % (Auto) 3.2 Baso % (Auto) 0.6 Neut # (Auto) 4.67 Lymph # (Auto) 2.88 Cloud # (Auto) 0.51 Eos # (Auto) 0.27 Baso # (Auto) 0.05 Immature Gran # (Auto) 0.04 H PT 10.2 INR 1.0 APTT 27.1 PTT Ratio 1.0 Sodium Potassium Chloride Carbon Dioxide Anion Gap BUN Creatinine Est Cr Clr Drug Dosing Est GFR ( Amer) Est GFR (Non-Af Amer) BUN/Creatinine Ratio Glucose Estimat Average Glucose Hemoglobin A1c Calcium Albumin Urine Color Urine Appearance Urine pH Ur Specific [place] Urine Protein Urine Glucose (UA) Urine Ketones Urine Blood Urine Nitrite Urine Bilirubin Urine Urobilinogen Ur Leukocyte Esterase COVID-19 Eval Order SARS-CoV-2, RNA, NAAT Blood Type A Positive Antibody Screen NEGATIVE 09/18/20 09/18/20 09/18/20 10:40 10:40 10:40 WBC RBC Hgb Hct MCV MCH MCHC RDW Std Deviation RDW Coeff of Beth Plt Count MPV Immature Gran % (Auto) Neut % (Auto) Lymph % (Auto) Cloud % (Auto) Eos % (Auto) Baso % (Auto) Neut # (Auto) Lymph # (Auto) Cloud # (Auto) Eos # (Auto) Baso # (Auto) Immature Gran # (Auto) PT INR APTT PTT Ratio Sodium 138 Potassium 4.1 Chloride 104 Carbon Dioxide 31 Anion Gap 3.0 BUN 20 H Creatinine 0.63 Est Cr Clr Drug Dosing 52.9 Est GFR ( Amer) 99.6 Est GFR (Non-Af Amer) 85.9 BUN/Creatinine Ratio 32.0 H Glucose 97 Estimat Average Glucose 105 Hemoglobin A1c 5.3 Calcium 9.6 Albumin 3.9 Urine Color Yellow Urine Appearance Clear Urine pH 7.0 Ur Specific [place] 1.020 Urine Protein Negative Urine Glucose (UA) Negative Urine Ketones Negative Urine Blood Negative Urine Nitrite Negative Urine Bilirubin Negative Urine Urobilinogen Negative Ur Leukocyte Esterase Negative COVID-19 Eval Order SARS-CoV-2, RNA, NAAT Blood Type Antibody Screen 10/17/20 10/17/20 08:06 08:06 WBC RBC Hgb Hct MCV MCH MCHC RDW Std Deviation RDW Coeff of Beth Plt Count MPV Immature Gran % (Auto) Neut % (Auto) Lymph % (Auto) Cloud % (Auto) Eos % (Auto) Baso % (Auto) Neut # (Auto) Lymph # (Auto) Cloud # (Auto) Eos # (Auto) Baso # (Auto) Immature Gran # (Auto) PT INR APTT PTT Ratio Sodium Potassium Chloride Carbon Dioxide Anion Gap BUN Creatinine Est Cr Clr Drug Dosing Est GFR ( Amer) Est GFR (Non-Af Amer) BUN/Creatinine Ratio Glucose Estimat Average Glucose Hemoglobin A1c Calcium Albumin Urine Color Urine Appearance Urine pH Ur Specific [place] Urine Protein Urine Glucose (UA) Urine Ketones Urine Blood Urine Nitrite Urine Bilirubin Urine Urobilinogen Ur Leukocyte Esterase COVID-19 Eval Order Covid19 IDNow [facility] SARS-CoV-2, RNA, NAAT NEGATIVE Blood Type Antibody Screen Diagnostic Findings 1. pre-op cxr 09/18 - wnl, no infiltrates. 2. pre-op EKG 09/18 - NSR, no ST changes. PG Care Time/CCT Total # of Minutes Spent Total Time Spent with Patient: Total time spent is greater than 50% in coordination of care (as documented) at patient's floor/unit and/or counseling patient: Coding Level of Care Code 47222 Subseq Obs Care Lvl 3 Diagnoses Status post total left knee replacement Z96.652 HTN (hypertension) I10 Hypertension type: essential hypertension Glaucoma H40.9 Glaucoma type: unspecified Laterality: unspecified laterality Abnormal CBC R79.89 Left flank pain R10.9 Thyroid nodule E04.1 History of DVT (deep vein thrombosis) Z86.718 DVT prophylaxis Z29.9 (1) HTN (hypertension) Hypertension type: essential hypertension Qualified Code(s): I10 - Essential (primary) hypertension (2) Glaucoma Glaucoma type: unspecified Laterality: unspecified laterality Qualified Code(s): H40.9 - Unspecified glaucoma
[2020-10-17] MEDS: DOCUSATE SODIUM 100 MG CAP PO SCH (21:40)
[2020-10-18] MEDS: ceFAZolin 1000MG 1,000 MG/7.5 ML SYR IV SCH (02:17)
[2020-10-18] MEDS: SODIUM CHLORIDE 0.9% 1000ML 1,000 ML IV SCH (02:49)
[2020-10-18] MEDS: ACETAMINOPHEN 500 MG TAB PO SCH ×2 (05:21→14:24)
[2020-10-18 05:47] LABS: Hematocrit (blood only) 33.1 % (37-47); Hemoglobin 10.9 g/dL (12.0-16.0); Mean Corpuscular Hemoglobin 28.9 pg (25-34); Mean Corpuscular Hgb Conc 32.9 g/dL (32-36); Mean Corpuscular Volume 87.8 fL (80-100); Mean Platelet Volume 9.3 fL (7.4-10.4); Platelet Count 200 K/uL (130-400); RDW Coefficient of Variation 12.9 % (11.5-14.5); RDW Standard Deviation 41.2 fL (36.4-46.3); Red Blood Count 3.77 M/uL (4.2-5.4); White Blood Count 10.56 K/uL (4.8-10.8)
[2020-10-18 06:12] LABS: Calcium 8.4 mg/dl (8.5-10.1); Creatinine Clr Calc Pharmacy 50.8 ml/min; Est GFR (African American) 97.1 ml/min; Est GFR (Non-African American) 83.8 ml/min; Potassium 4.2 mmol/L (3.5-5.1)
--- NOTE | 2020-10-18 08:28 | Hospitalist Progress Note ---
Date of Service October 18, 2020 Assessment & Plan (1) Status post total left knee replacement: By Dr Blackwell 10/16/20 DVT proph - xarelto 10mg daily. (2) HTN (hypertension): Patient took metoprolol succinate this am but not her SANYA inhibitor as dir ected. was given additional metoprololl tartate 25mg po x 1 10/16. Resumed lisinopril in am (3) Glaucoma: Continue home drops. (4) Abnormal CBC: pre-op CBC was normal with normal differential. previous peripheral smear and flow cytometry were worrisome for possible lymphoma but patient was seen by Dr Harry Granados at the [facility] and it was felt that she did not have a hematological malignancy. she has scheduled f/u with Dr Granados in 12/2020. repeat CBC 10/17 acute blood loss anemia. (5) Left flank pain: long-standing back pain. much of the pain is over the left flank / left paraspinal region. recommended to the patient that she have imaging as an outpatient for this. (6) Thyroid nodule: recommend outpatient thyroid u/s. Advised patient to f/u with PCP to arrange this. (7) History of DVT (deep vein thrombosis): Provoked. 2000. Following podiatric surgery. Agree with xarelto 10mg daily for DVT prophylaxis as chosen by orthopedic team. (8) DVT prophylaxis: xarelto 10mg daily Thank you for this consult. Our team will follow with you. Admission and Anticipated Discharge Date Admission Date: October 17, 2020 Subjective Patient is seen he is doing well she no complaints or problems we did discuss her back pain this was resolved concern with her previous abnormal differential would be to have surveillance back films in the future. I did comment on this to her to talk to her primary care physician. Her renal function is stable Review of Systems Review of Systems: Mild distress and fatigue no headache, no visual changes no speech or swallowing issues no chest pain, pressure or palpitations no shortness of breath, cough or wheezes no abdominal pain, nausea or vomiting, diarrhea or constipation no dysuria, hematuria or frequency Typical left knee discomfort postoperatively has ice on it no back pain, CVA tenderness or radicular pain no bruising, bleeding or rashes no focal signs of weakness or numbness or altered sensation no complaints of anxiety or depression.. Physical Exam Physical Exam: The patient appeared well nourished and normally developed. Vital signs as documented. Head exam is normocephalic atraumatic Neck is without JVD, thyromegaly, or carotid bruits. Lungs are clear to auscultation, no focal loss of breath sounds Cardiac exam, Rhythm is regular.. No murmurs, rubs or gallops. Abdominal exam reveals normal bowel sounds, soft non tender, no masses Left knee is without significant swelling she does have a drain in place Neurologic exam is alert and oriented, no focal loss of strength or sensation Skin is without bruises or rashes Psychologically is without concerns for anxiety or depression Results & Data Results & Data ([facility]) Vital Signs (Past 12 Hours) Vital Signs Temp Pulse Resp BP Pulse Ox 10/18/20 07:11 97.7 F 71 16 169/66 H 94 10/18/20 04:40 61 126/62 93 10/18/20 03:40 97.7 F 63 14 136/67 95 10/17/20 23:01 97.3 F L 66 14 134/68 94 10/17/20 22:23 62 138/67 10/17/20 22:22 154/64 H PG Care Time/CCT Total # of Minutes Spent Total Time Spent with Patient: Total time spent is greater than 50% in coordination of care (as documented) at patient's floor/unit and/or counseling patient: Coding Level of Care Code 22302 Subseq Hosp Care Lvl 2 Diagnoses Status post total left knee replacement Z96.652 HTN (hypertension) I10 Hypertension type: essential hypertension Glaucoma H40.9 Glaucoma type: unspecified Laterality: unspecified laterality Abnormal CBC R79.89 Left flank pain R10.9 Thyroid nodule E04.1 History of DVT (deep vein thrombosis) Z86.718 DVT prophylaxis Z29.9 (1) Glaucoma Glaucoma type: unspecified Laterality: unspecified laterality Qualified Code(s): H40.9 - Unspecified glaucoma (2) HTN (hypertension) Hypertension type: essential hypertension Qualified Code(s): I10 - Essential (primary) hypertension
[2020-10-18] MEDS: oxyCODONE HCL IR 5 MG TAB (IMMEDIATE RELEASE) PO PRN ×2 (08:31→14:23)
[2020-10-18] MEDS: FERROUS GLUCONATE 324 MG TAB PO SCH (08:32)
[2020-10-18] MEDS: DOCUSATE SODIUM 100 MG CAP PO SCH (08:34)
[2020-10-18] MEDS: DORZOLAMIDE HCL 2% OPH SOLN 10 ML BTL OP SCH (08:36)
[2020-10-18] MEDS: TIMOLOL MALEATE 0.25% OP SOLN 5 ML BTL OP SCH (08:36)
[2020-10-18] MEDS ORDERED: RIVAROXABAN 10 MG TABLET PO SCH (09:00)
[2020-10-18] MEDS ORDERED: lisinopril 20 MG TAB PO SCH (09:00)
[2020-10-18] MEDS ORDERED: MULTIVITAMIN TAB PO SCH (09:00)
[2020-10-18] MEDS ORDERED: METOPROLOL SUCC 25MG EXT REL TAB PO SCH (09:00)
--- NOTE | 2020-10-18 09:31 | Orthopedic Progress Note ---
Date of Service October 18, 2020 Assessment & Plan (1) Osteoarthritis of left knee: Postop day 1 status post left total knee arthroplasty. PT/OT protocols. Weightbearing as tolerated. We will see how she progresses and if she has any further lightheadedness today. DVT prophylaxis-rivaroxaban p.o. daily, SCDs, DANIEL mandujano. Pain management as written. DC planning-patient is planning to go to [facility] rehab facility. I have discussed this with case management and she has a room already approved. We will see how she performs in PT and how she is feeling. If she continues to remain stable, possibly discharged to [facility] rehab today. Admission and Anticipated Discharge Date Admission Date: October 17, 2020 Subjective Postop day 1 Patient sitting up in her chair at the bedside just finishing her breakfast. Nursing is with her right now and states that around 4:00 this morning when she got up to use the restroom, she ended up having some lightheadedness/dizziness. They had to use a wheelchair to get bring her back to her bed. This morning while sitting up in her chair, she feels fine and has no complaints. Denies shortness of breath, chest pain, lightheadedness. She is having some pain in the operative knee off and on. Physical Exam Physical Exam: Dressings are clean, dry, and intact. Calves are soft nontender. Neurovascular intact. Toes are mobile. She apparently had a foot drop last night which was likely secondary to intraoperative injection, however this morning she states that is much better. She has good strength with dorsiflexion and plantarflexion on the operative side. Results & Data ([facility]) Vital Signs (Past 12 Hours) Vital Signs Temp Pulse Resp BP Pulse Ox 10/18/20 07:11 36.5 C 71 16 169/66 H 94 10/18/20 04:40 61 126/62 93 10/18/20 03:40 36.5 C 63 14 136/67 95 10/17/20 23:01 36.3 C L 66 14 134/68 94 10/17/20 22:23 62 138/67 10/17/20 22:22 154/64 H Diagnostic Findings Laboratory Results WBC 10.56 K/uL (4.8-10.8) 10/18/20 05:31 RBC 3.77 M/uL (4.2-5.4) L 10/18/20 05:31 Hgb 10.9 g/dL (12.0-16.0) L 10/18/20 05:31 Hct 33.1 % (37-47) L 10/18/20 05:31 MCV 87.8 fL (80-100) 10/18/20 05:31 MCH 28.9 pg (25-34) 10/18/20 05:31 MCHC 32.9 g/dL (32-36) 10/18/20 05:31 RDW Std Deviation 41.2 fL (36.4-46.3) 10/18/20 05:31 RDW Coeff of Beth 12.9 % (11.5-14.5) 10/18/20 05:31 Plt Count 200 K/uL (130-400) 10/18/20 05:31 MPV 9.3 fL (7.4-10.4) 10/18/20 05:31 Immature Gran % (Auto) 0.5 % 09/18/20 10:40 Neut % (Auto) 55.4 % 09/18/20 10:40 Lymph % (Auto) 34.2 % 09/18/20 10:40 [place] % (Auto) 6.1 % 09/18/20 10:40 Eos % (Auto) 3.2 % 09/18/20 10:40 Baso % (Auto) 0.6 % 09/18/20 10:40 Neut # (Auto) 4.67 K/uL (1.4-6.5) 09/18/20 10:40 Lymph # (Auto) 2.88 K/uL (1.2-3.4) 09/18/20 10:40 [place] # (Auto) 0.51 K/uL (0.11-0.59) 09/18/20 10:40 Eos # (Auto) 0.27 K/uL (0-0.5) 09/18/20 10:40 Baso # (Auto) 0.05 K/uL (0-0.2) 09/18/20 10:40 Immature Gran # (Auto) 0.04 K/uL (0.00-0.02) H 09/18/20 10:40 PT 10.2 Seconds (9.0-12.0) 09/18/20 10:40 INR 1.0 (0.9-1.1) 09/18/20 10:40 APTT 27.1 Seconds (21.0-31.0) 09/18/20 10:40 PTT Ratio 1.0 09/18/20 10:40 Sodium 138 mmol/L (136-145) 10/18/20 05:31 Potassium 4.2 mmol/L (3.5-5.1) 10/18/20 05:31 Chloride 107 mmol/L (98-107) 10/18/20 05:31 Carbon Dioxide 25 mmol/L (21-32) 10/18/20 05:31 Anion Gap 6.0 (3-11) 10/18/20 05:31 BUN 17 mg/dl (7-18) 10/18/20 05:31 Creatinine 0.68 mg/dl (0.6-1.2) 10/18/20 05:31 Est Cr Clr Drug Dosing 50.8 ml/min 10/18/20 05:31 Est GFR ( Amer) 97.1 ml/min 10/18/20 05:31 Est GFR (Non-Af Amer) 83.8 ml/min 10/18/20 05:31 BUN/Creatinine Ratio 25.0 (10-20) H 10/18/20 05:31 Glucose 117 mg/dl (70-99) H 10/18/20 05:31 Estimat Average Glucose 105 mg/dl 09/18/20 10:40 Hemoglobin A1c 5.3 % (4.5-5.6) 09/18/20 10:40 Calcium 8.4 mg/dl (8.5-10.1) L 10/18/20 05:31 Albumin 3.9 gm/dl (3.4-5.0) 09/18/20 10:40 Urine Color Yellow 09/18/20 10:40 Urine Appearance Clear (Clear) 09/18/20 10:40 Urine pH 7.0 (4.5-7.5) 09/18/20 10:40 Ur Specific [place] 1.020 (1.000-1.030) 09/18/20 10:40 Urine Protein Negative (Negative) 09/18/20 10:40 Urine Glucose (UA) Negative (Negative) 09/18/20 10:40 Urine Ketones Negative (Negative) 09/18/20 10:40 Urine Blood Negative (Negative) 09/18/20 10:40 Urine Nitrite Negative (Negative) 09/18/20 10:40 Urine Bilirubin Negative (Negative) 09/18/20 10:40 Urine Urobilinogen Negative (Negative) 09/18/20 10:40 Ur Leukocyte Esterase Negative (Negative) 09/18/20 10:40 COVID-19 Eval Order Covid19 IDNow [facility] 10/17/20 08:06 SARS-CoV-2, RNA, NAAT NEGATIVE (NEGATIVE) 10/17/20 08:06 Blood Type A Positive 09/18/20 10:40 Antibody Screen NEGATIVE 09/18/20 10:40 Impressions Knee X-Ray 10/17/20 13:09 XR knee LT 1 or 2V routine CLINICAL HISTORY: Surgical Post Op COMPARISON: None FINDINGS: Alignment of the total left knee arthroplasty is anatomic. There is no periprosthetic fracture or unexpected radiopaque foreign body. There are surgical drains. IMPRESSION: Expected findings following total left knee arthroplasty. ACT 112: Negative or not required by law. Electronically signed by: Ganga Perez M.D. 10/17/2020 1:34 PM
[2020-10-18] MEDS ORDERED: KETOROLAC TROMETHAMINE 15 MG/ML VIAL IV ONE (11:34)
--- NOTE | 2020-10-19 11:57 | Discharge Summary ---
Date of Service October 19, 2020 Admission HPI Per Admitting Provider leonor is a 80 year old female who complains of left knee pain, presents for pre-op evaluation prior to Left total knee replacement at [facility]. she complains of pain, decreased range of motion, instability and stiffness. Currently the patient states that the symptoms are moderate-severe. The pain is described as aching, sharp and throbbing. The symptoms are aggravated by ascending stairs, daily activities, first steps while awake walking. Prior NSAIDs include IBU and Aleve. she has been treated with multiple previous cortisone injections in the past without much relief. Admission Exam Per Admitting Provider Physical Exam: HT: 5ft WT: 53.7kg Constitutional: WD/WN, vitals as above no acute distress Respiratory: normal respiratory effort, lungs clear to auscultation no respiratory distress, no labored breathing and does not use accessory muscles Cardiovascular: RRR, no murmur, no edema Gastrointestinal (Abdomen): normal bowel sounds, soft, nontender, no hepatosplenomegaly Musculoskeletal: Knee: + knee abnormal to inspection (Left Knee- ), + effusion (+1 effusion), + limited ROM of knee (ROM 0/3/110), + knee ROM with crepitation, + joint line tenderness (medial joint line) and + Lloyd's sign positive; no deformity, no skin erythema, no ecchymosis, no valgus laxity, no varus laxity, anterior drawer test negative, Solo's sign negative and pivot shift test negative Principal Diagnosis Osteoarthritis left knee Discharge Data Allergies Allergy/AdvReac Type Severity Reaction Status Date / Time nickel Allergy Unknown INFECTED Verified 10/17/20 08:08 EARS brimonidine AdvReac CRUSTY EYES Verified 10/17/20 08:08 Consultations 10/12/20 13:56 Consult Hospitalist Routine Procedures Performed Operation Date: 10/17/20 10:15 Actual Procedures p Left Total Knee Arthroplasty(Left) - Anthony Blackwell DO Ordered Studies 10/17/20 05:00 US - OR guided needle placemen Routine Hospital Course (1) Arthritis of knee, left: Date of Service October 18, 2020 Assessment & Plan (1) Osteoarthritis of left knee: Postop day 1 status post left total knee arthroplasty. PT/OT protocols. Weightbearing as tolerated. We will see how she progresses and if she has any further lightheadedness today. DVT prophylaxis-rivaroxaban p.o. daily, SCDs, DANIEL mandujano. Pain management as written. DC planning-patient is planning to go to [facility] rehab facility. I have discussed this with case management and she has a room already approved. We will see how she performs in PT and how she is feeling. If she continues to remain stable, possibly discharged to [facility] rehab today. Patient progressed well with her physical therapy and had no more episodes of lightheadedness. Patient was remaining stable and was transferred to [facility] rehab for further care. Admission and Anticipated Discharge Date Admission Date: October 17, 2020 Subjective Postop day 1 Patient sitting up in her chair at the bedside just finishing her breakfast. Nursing is with her right now and states that around 4:00 this morning when she got up to use the restroom, she ended up having some lightheadedness/dizziness. They had to use a wheelchair to get bring her back to her bed. This morning while sitting up in her chair, she feels fine and has no complaints. Denies shortness of breath, chest pain, lightheadedness. She is having some pain in the operative knee off and on. Physical Exam Physical Exam: Dressings are clean, dry, and intact. Calves are soft nontender. Neurovascular intact. Toes are mobile. She apparently had a foot drop last night which was likely secondary to intraoperative injection, however this morning she states that is much better. She has good strength with dorsiflexion and plantarflexion on the operative side. Results & Data ([facility]) Vital Signs (Past 12 Hours) Vital Signs Temp Pulse Resp BP Pulse Ox 10/18/20 07:11 36.5 C 71 16 169/66 H 94 10/18/20 04:40 61 126/62 93 10/18/20 03:40 36.5 C 63 14 136/67 95 10/17/20 23:01 36.3 C L 66 14 134/68 94 10/17/20 22:23 62 138/67 10/17/20 22:22 154/64 H Diagnostic Findings Laboratory Results WBC 10.56 K/uL (4.8-10.8) 10/18/20 05:31 RBC 3.77 M/uL (4.2-5.4) L 06/17/21 05:31 Hgb 10.9 g/dL (12.0-16.0) L 10/18/20 05:31 Hct 33.1 % (37-47) L 10/18/20 05:31 Total Time Total Time Spent Total Time Spent (In Minutes): 5 Discharge Plan Discharge Items Patient Disposition: Transfer Inpatient Rehab Fac Reason For Visit: Osteoarthritis Knee Left Discharge Diagnosis: Osteoarthritis left knee Activity: Per Instructions section Weightbearing: Left weightbearing Weightbearing Comment: As tolerated with walker Non-emergency contact: Surgeon Call non-emergency contact if: your pain is not controlled, your temperature is above 101.5, your wound has increased redness and your wound has increased drainage Follow-up/Referrals: Silvio Lugo III, CRNP [Primary Care Provider] - Diet: Regular Addtl Attending Provider Instructions: ACTIVITY RECOMMENDATIONS: SELF CARE INSTRUCTIONS AFTER TOTAL KNEE REPLACEMENT A. You may need to continue a physical therapy program after discharge from the hospital. There are several options available to you. Your doctor will assist you in selecting the best one for you. 1. An out-patient facility 2 to 3 times a week for therapy or home therapy. 2. Continue working on all exercises taught to you in the hospital. Your goals should be to increase bending of your knee to 90 degrees and beyond and to fully straighten your knee. B. You may progress at your own pace from walking with a walker or crutches to a cane; then to no assistive devices. C. Make walking a part of your daily routine. Be up as much as comfortable with rest periods throughout the day. Rest with leg elevation is very important. Use the ice wrap frequently for the first 3-4 weeks. D. There are no restrictions on activities. You may ride in a car, shop, participate in paper bag maker and all social activities. E. Wear the long elastic stockings (DANIEL hose) 20 hours a day for 2 weeks after surgery. They can be removed several times a day for laundering and for a bath. F. You may shower, no tub baths until cleared by your doctor. SPECIAL CARE INSTRUCTIONS: VERY IMPORTANT TO READ AND REVIEW A. There are a few signs you need to watch for after you are home. Call [facility] if you notice any of the followin. Increased severe knee pain. Some pain is expected especially when you e xercise. 2. Increased swelling in your leg or knee; pain or swelling of the calf muscle in either lower leg. 3. Any fluid drainage from the incision. 4. Shortness of breath or chest pain. B. Please call [facility] at if you have any concerns or questions about your operation or recovery. The doctor or his nurse will return your call promptly. C. You must take antibiotics before dental work, bladder, bowel or other surgery. Your doctor will provide you with a permanent care to carry describing this precaution. IMPORTANT: * REMEMBER TO TAKE XARELTO 10MG ONCE DAILY FOR 4 WEEKS UNLESS OTHERWISE DIRECTED. THIS IS YOUR BLOOD THINNER. * CALL IF INCREASED PAIN, REDNESS, DRAINAGE OR FEVER GREATER THAT 101. * WEAR DANIEL HOSE 20 HOURS PER DAY FOR 2 WEEKS. * DERMABOND Prineo- This is a mesh tape dressing that is covered with glue. It should remain in place until the incision is properly healed, usually 10-14 days. This dressing is designed to naturally slough off. You may trim the excess mesh tape as it peels off. Incision may be briefly wet in a shower. Dry immediately by blotting with a clean, dry towel. Do not bath or swim until instructed by your doctor. Do not scratch, rub, or pick at the dressing. Do not apply any topical ointments or lotions until dressing is completely removed and/or instructed by your doctor. There may be a small piece of suture material at one end of your incision. Do not pull or trim this. If it is bothersome or catching on clothing, you may cover it with a band-aid. Call the office with any questions. . FOLLOW UP VISIT: If appointment is not already scheduled: Please call [facility] to make a follow-up appointment for 2 weeks after your surgery at . Stand-Alone Forms: My [facility] Skilled Items Patient informed of condition?: Yes DNR: No Discharge Level of Care: Acute rehab Communicable Disease: No Discharge Prognosis: Stable Lines: None Urinary Catheter: No Medications and DC Order Prescriptions: New acetaminophen 500 mg Tablet 1,000 mg PO Q8 14 Days Qty: 84 RF: 0 oxycodone 5 mg Tablet 5 - 10 mg PO Q4H PRN (Reason: pain) 5 Days Qty: 30 RF: 0 polyethylene glycol 3350 [Miralax] 17 gram powder in packet 17 g PO DAILY PRN (Reason: constipation) Qty: 5 RF: 0 cefadroxil 500 mg capsule 500 mg PO BID Qty: 28 RF: 1 Xarelto 10 mg Tablet 10 mg PO DAILY 30 Days Qty: 30 RF: 0 Continued metoprolol succinate [Toprol XL] 25 mg tablet extended release 24 hr 25 mg PO QAM Qty: 90 RF: 0 lisinopril 20 mg tablet 20 mg PO QAM Qty: 90 RF: 0 multivitamin Tablet 1 tab PO QAM RF: 0 latanoprost [Xalatan] 0.005 % drops 1 drp OPL HS RF: 0 biotin 10,000 mcg Capsule 10,000 mcg PO QAM RF: 0 dorzolamide [Trusopt] 2 % Drops 1 drp OPHTHALMIC (EYE) BID RF: 0 calcium carb,glucon-vitamin D2 500 mg calcium -200 unit Tablet 1 tab PO BID RF: 0 timolol maleate (PF) 0.25 % Dropperette 1 drp OPHTHALMIC (EYE) BID RF: 0 Discharge Orders: Discharge Order (Routine); Ordered 10/18/20 Ordered By: Kenji Sumner/Other Patient Handouts: DVT Post Op Prevention, Managing Post-Op Pain at Home ... Admission Data Admit Date/Time: 10/17/20 13:09 Attending Provider: Anthony Blackwell Admit Provider: Anthony Blackwell Primary Care Provider: Silvio Lugo III Other Providers: Anthony Elder ; [facility] Other Interventions: Discharge Summary Assessment (RN) Last Done: 10/18/20 16:06
== END 2020-10-18 16:34 ==
LOC: PACUINP 07:36 → ASU 07:36 → 3E 14:58

== ENCOUNTER 2022-12-20 16:57 | Inpatient (IN) ==
--- NOTE | 2022-12-20 17:13 | Emergency Department Note ---
Impression & Plan Pyelonephritis, Hyponatremia, Elevated troponin, Acute dehydration ED Provider Note NAME: ISMA CHACON AGE: 82 SEX: F : 1940 ARRIVES VIA: Ambulance INFORMANT: Patient, ED PROVIDER(S): Yefri Kee MD CHIEF COMPLAINT: "I just do not feel well, I have a lack of appetite." MEDICAL DECISION MAKING: Patient presents with generally not feeling well and associated decreased p.o. intake and lack of appetite. Next The patient does not have any pain on exam. The patient did have an IV established and blood was obtained along with a chest x-ray viral swab. Patient was noted to have a significant white count of 24. The patient was ordered empiric Rocephin. Suspect urinary source. Urinalysis confirms presence of UTI. I reviewed the patient's blood work which does show a white count of 24 with a normal hemoglobin and platelet count. Kidney function is unremarkable but with prerenal azotemia. Sodium of 135 and troponin of 90. Bio fire is negative. Urinalysis positive for infection. She did receive additional IV fluids in addition to the Rocephin. Patient CT port shows possible pyelonephritis. Prior /Outside records reviewed: I did review discharge summary from [facility] from October 2020. Patient had been seen at that time for preoperative evaluation of the left total knee replacement and subsequently did have left total knee arthroplasty at that time. Differential diagnosis: UTI, dehydration, infection, pneumonia, ACS, gastritis, gastroenteritis, viral syndrome among others were considered. Diagnostics, as interpreted by me: ECG: Normal sinus rhythm, rate 99, normal intervals, normal axis no ST elevations. Cardiac monitoring: An order was placed for continuous cardiac monitoring. The monitor shows a rate of 88 with sinus rhythm. Patient was placed on pulse oximetry Medical decision rules: None Imaging studies: See below HPI: Patient presents for feeling generally unwell and began having symptoms approximate 3 days prior with associated lack of appetite. The patient does not complain of any abdominal pain or nausea but just does not want to eat or drink. Patient denies any chest pains or shortness of breath and has not had any reported cough. The patient denies any head strike or fall. Patient states that she has been compliant with her medications. No known sick contacts or recent travel. Patient denies any rash or urinary symptoms. PAST MEDICAL HISTORY: See Below PAST SURGICAL HISTORY: See Below SOCIAL HISTORY: See Below HOME MEDICATIONS: See Below ALLERGIES: See Below VITALS: See Below PHYSICAL EXAMINATION: GENERAL: NAD, non-toxic. EYE EXAM: Normal conjunctiva. PERRL, no anisocoria and EOM's grossly intact w/o pain. OROPHARYNX: Moist mucus membranes, grossly normal dentition. NECK: Supple, no nuchal rigidity, no adenopathy, non-tender. No signs of meningismus. FROM of the neck with good chin to chest and neck extension. No st ridor. LUNGS: Clear to auscultation. Normal chest wall mechanics. HEART: NSR, no MRG. ABDOMEN: Abdomen soft, non-tender, no masses, no rebound or guarding. BACK: No CVA TTP. SKIN: No rashes and no bruising. UPPER EXTREMITIES: Upper extremities are grossly normal. LOWER EXTREMITIES: Grossly normal, no edema. NEURO EXAM: A&O x3, cranial nerves II-XII grossly intact, normal speech, moves all 4 extremities. 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. PT THINKS THIS WAS DONE FOR SOB. History of colonoscopy History of eye surgery FOR GLAUCOMA-RIGHT EYE Hx of cataract surgery R/L S/P knee replacement Family History Aunt Family history of diabetes mellitus Uncle Family history of diabetes mellitus Father Myocardial infarction Mother Parkinsons disease Denies family history of Ovarian cancer Prostate cancer Breast cancer Colorectal cancer Social History Smoking Status: Former smoker Tobacco Type: Cigarettes packs per day: 0.5; Smoking End Date: 25 years ago; Second Hand Exposure: No; Do You Dip or Chew Tobacco: No; Tobacco Cessation Education Requested by Patient: No Hx Alcohol Use: Yes Alcohol type: hard liquor Alcohol Intake Frequency: Monthly or Less Hx Substance Use: No Preferred Language: Georgian Communication Ability: Effective Visual Impairment: Limited Hearing Ability: Normal Clipper Operator Required: No Beliefs That Will Affect Care: None marital status: Single Current Living Situation: Alone Current Living Situation Comment: [place] current occupational status: retired How many Children do You have: 2 Other Information That Helps Us Care for You: No Feels Safe at Home: Yes Safety Concerns: Feels Safe At This Time Childhood Exposure to Second-Hand Smoke: Yes Diet: regular Diet Comment: regular Dental Care, Regularly: Yes Physical Activity Frequency: Does not Exercise Seatbelt Use: always Sunscreen Use: Yes Assistive Devices: Glasses Assistive Devices Comment: only wears glasses to drive Allergies Allergies Allergy/AdvReac Type Severity Reaction Status Date / Time nickel Allergy Unknown INFECTED Verified 11/11/22 13:13 EARS cat dander AdvReac Unknown Watery Eye Verified 11/11/22 13:13 brimonidine AdvReac CRUSTY EYES Verified 11/11/22 13:13 Home Meds Home Medications Medication Instructions Recorded Confirmed biotin 10,000 mcg capsule 10,000 mcg PO QAM 10/12/19 12/20/22 dorzolamide 2 % eye drops (Trusopt) 1 drp ophthalmic (eye) BID 10/12/19 12/20/22 latanoprost 0.005 % eye drops 1 drp OPL HS 10/12/19 12/20/22 (Xalatan) multivitamin 1 tab PO QAM 10/12/19 12/20/22 timolol maleate (PF) 0.25 % eye 1 drp ophthalmic (eye) BID 09/12/20 12/20/22 drops in a dropperette calcium carbonate 600 mg calcium 600 mg PO BID 06/24/21 12/20/22 (1,500 mg) tablet (Calcium) Previous Rx's Medication Instructions Recorded lisinopril 40 mg tablet 40 mg PO DAILY #90 tabs 07/01/22 metoprolol succinate 100 mg 100 mg PO DAILY #90 tabs 09/10/22 tablet,extended release 24 hr acetic acid 2 % ear solution 5 drp otic (ear) QID #15 mL 11/11/22 pantoprazole 40 mg tablet,delayed 40 mg PO DAILY #90 tabs 11/11/22 release Results & Data (ED) Vital Signs Vital Signs - 24 hr 12/20/22 17:04 12/20/22 17:58 12/20/22 17:58 Temperature 37.2 C Temperature Source Oral Pulse Rate 79 75 Pulse Rate [Right Finger] 75 Pulse Rhythm Regular Regular Pulse Rhythm [Right Finger] Regular Pulse Strength Normal Pulse Strength [Right Finger] Normal Respiratory Rate 18 18 18 Respiratory Effort / Characteristics Non-Labored Spontaneous Non-Labored Spontaneous Respiratory Depth Normal Normal Respiratory Pattern Regular Blood Pressure 143/80 H Blood Pressure [Right Arm] 131/51 L Blood Pressure Mean 101 Blood Pressure Mean [Right Arm] 77 Blood Pressure Position Lying Pulse Oximetry 95 96 95 Oxygen Delivery Method Room Air Room Air Room Air Sepsis Recent Fever Within 48 Hours No Sepsis New/Unexplained Change in Mental Status N/A Sepsis Action Taken by Nursing No Action Required 12/20/22 19:49 12/20/22 19:30 Temperature Temperature Source Pulse Rate 77 Pulse Rate [Right Finger] 82 Pulse Rhythm Pulse Rhythm [Right Finger] Regular Pulse Strength Pulse Strength [Right Finger] Normal Respiratory Rate 19 Respiratory Effort / Characteristics Non-Labored Spontaneous Respiratory Depth Normal Respiratory Pattern Regular Blood Pressure Blood Pressure [Right Arm] 169/89 H Blood Pressure Mean Blood Pressure Mean [Right Arm] 115 Blood Pressure Position Pulse Oximetry 97 Oxygen Delivery Method Room Air Sepsis Recent Fever Within 48 Hours Sepsis New/Unexplained Change in Mental Status Sepsis Action Taken by [facility]pc Medications Current Medication List: was personally reviewed by me Laboratory Data Attestation: I reviewed the patient's lab results. 12/21/22 05:38 12/21/22 05:38 Lab Results 12/20/22 12/20/22 12/20/22 Range/Units 17:00 17:15 17:15 WBC 24.09 H (4.8-10.8) K/ul RBC 4.19 L (4.20-5.40) M/uL Hgb 12.1 (12.0-16.0) g/dl Hct 35.6 L (37.0-47.0) % MCV 85.0 (80.0-100.0) fL MCH 28.9 (25.0-34.0) pg MCHC 34.0 (32.0-36.0) g/dL RDW Std Deviation 39.6 (36.4-46.3) fL RDW Coeff of Beth 12.8 (11.5-14.5) % Plt Count 218 (130-400) K/uL MPV 10.4 (9.4-12.4) fL Immature Gran % (Auto) 1.7 % Neut % (Auto) 85.4 % Lymph % (Auto) 3.4 % Tucker % (Auto) 9.3 % Eos % (Auto) 0.0 % Baso % (Auto) 0.2 % Neut # (Auto) 20.57 H (1.40-6.50) K/uL Lymph # (Auto) 0.82 L (1.2-3.4) K/uL Tucker # (Auto) 2.23 H (0.11-0.59) K/uL Eos # (Auto) 0.00 (0-0.50) K/uL Baso # (Auto) 0.06 (0-0.2) K/uL Immature Gran # (Auto) 0.41 H (0.01-0.20) K/uL Sodium 135 L (136-145) mmol/L Potassium 3.7 (3.5-5.1) mmol/L Chloride 98 (98-107) mmol/L Carbon Dioxide 28 (21-32) mmol/L Anion Gap 9 (3-11) BUN 39 H (6-23) mg/dl Creatinine 0.82 (0.6-1.2) mg/dl Est Cr Clr Drug Dosing 40.7 ml/min Est GFR ( Amer) 78.3 ml/min Est GFR (Non-Af Amer) 67.6 ml/min BUN/Creatinine Ratio 47.6 H (10-20) Glucose 147 H (70-99(Fasting)) mg/dl Calcium 9.4 (8.6-10.3) mg/dl Magnesium 2.0 (1.7-2.4) mg/dl Total Bilirubin 0.9 (0.2-1.0) mg/dl AST 22 (13-39) U/L ALT 13 (7-52) U/L Alkaline Phosphatase 74 (34-104) U/L Troponin I High Sens 90.0 H* (0-14) pg/ml Total Protein 7.8 (6.0-8.3) gm/dl Albumin 4.0 (3.4-5.0) gm/dl Globulin 3.8 (2.5-4.0) gm/dl Albumin/Globulin Ratio 1.1 (0.9-2) Procalcitonin (0-0.5) ng/ml TSH (0.300-4.500) uIu/ml Urine Color Urine Appearance (Clear) Urine pH (4.5-7.5) Ur Specific [place] (1.000-1.030) Urine Protein (Negative) Urine Glucose (UA) (Negative) Urine Ketones (Negative) Urine Blood (Negative) Urine Nitrite (Negative) Urine Bilirubin (Negative) Urine Urobilinogen (Negative) Ur Leukocyte Esterase (Negative) Urine WBC (Auto) (0-5) /hpf Urine RBC (Auto) (0-4) /hpf U Hyaline Cast (Auto) (0-5) /lpf U Epithel Cells (Auto) (0-5) /lpf Urine Bacteria (Auto) (Negative) Adenovirus (PCR) Not Detected (NotDetected) B. pertussis DNA (PCR) Not Detected (NotDetected) B.parapertussis DNA PCR Not Detected (NotDetected) C. pneumoniae DNA (PCR) Not Detected (NotDetected) Coronavirus OC43 (PCR) Not Detected (NotDetected) Coronavirus HKU1 (PCR) Not Detected (NotDetected) Coronavirus 229E (PCR) Not Detected (NotDetected) SARS-CoV-2 (PCR) Not Detected (NotDetected) Coronavirus NL63 (PCR) Not Detected (NotDetected) Enterobacterales (PCR) (NotDetected) E. coli (PCR) (NotDetected) Human Metapneumovir PCR Not Detected (NotDetected) Influenza Type A (PCR) Not Detected (NotDetected) Influenza Type B (PCR) Not Detected (NotDetected) M. pneumoniae (PCR) Not Detected (NotDetected) Parainfluenza 1 (PCR) Not Detected (NotDetected) Parainfluenza 2 (PCR) Not Detected (NotDetected) Parainfluenza 3 (PCR) Not Detected (NotDetected) Parainfluenza 4 (PCR) Not Detected (NotDetected) RSV (PCR) Not Detected (NotDetected) Entero/Rhino (PCR) Not Detected (NotDetected) mcr-1 Colistin Res Gene PCR (NotDetected) blaIMP Car res Gene PCR (NotDetected) KPC-Carbap Res Gene PCR (NotDetected) blaNDM Car Res Gene PCR (NotDetected) OXA-48 Carbapenem Resis Gene (PCR) (NotDetected) blaVIM Car Res Gene PCR (NotDetected) CTX-M Gene Resistance (PCR) (NotDetected) Bld Cult ID Panel PCR (NotDetected) 12/20/22 12/20/22 12/20/22 Range/Units 17:15 18:50 19:28 WBC (4.8-10.8) K/ul RBC (4.20-5.40) M/uL Hgb (12.0-16.0) g/dl Hct (37.0-47.0) % MCV (80.0-100.0) fL MCH (25.0-34.0) pg MCHC (32.0-36.0) g/dL RDW Std Deviation (36.4-46.3) fL RDW Coeff of Beth (11.5-14.5) % Plt Count (130-400) K/uL MPV (9.4-12.4) fL Immature Gran % (Auto) % Neut % (Auto) % Lymph % (Auto) % Tucker % (Auto) % Eos % (Auto) % Baso % (Auto) % Neut # (Auto) (1.40-6.50) K/uL Lymph # (Auto) (1.2-3.4) K/uL Tucker # (Auto) (0.11-0.59) K/uL Eos # (Auto) (0-0.50) K/uL Baso # (Auto) (0-0.2) K/uL Immature Gran # (Auto) (0.01-0.20) K/uL Sodium (136-145) mmol/L Potassium (3.5-5.1) mmol/L Chloride (98-107) mmol/L Carbon Dioxide (21-32) mmol/L Anion Gap (3-11) BUN (6-23) mg/dl Creatinine (0.6-1.2) mg/dl Est Cr Clr Drug Dosing ml/min Est GFR ( Amer) ml/min Est GFR (Non-Af Amer) ml/min BUN/Creatinine Ratio (10-20) Glucose (70-99(Fasting)) mg/dl Calcium (8.6-10.3) mg/dl Magnesium (1.7-2.4) mg/dl Total Bilirubin (0.2-1.0) mg/dl AST (13-39) U/L ALT (7-52) U/L Alkaline Phosphatase (34-104) U/L Troponin I High Sens (0-14) pg/ml Total Protein (6.0-8.3) gm/dl Albumin (3.4-5.0) gm/dl Globulin (2.5-4.0) gm/dl Albumin/Globulin Ratio (0.9-2) Procalcitonin 17.40 H (0-0.5) ng/ml TSH 1.076 (0.300-4.500) uIu/ml Urine Color Dark Yellow Urine Appearance Cloudy A (Clear) Urine pH 5.5 (4.5-7.5) Ur Specific [place] 1.016 (1.000-1.030) Urine Protein 3+ H (Negative) Urine Glucose (UA) Negative (Negative) Urine Ketones Trace H (Negative) Urine Blood 2+ H (Negative) Urine Nitrite Positive A (Negative) Urine Bilirubin Negative (Negative) Urine Urobilinogen Negative (Negative) Ur Leukocyte Esterase 2+ H (Negative) Urine WBC (Auto) >30 H (0-5) /hpf Urine RBC (Auto) 0-4 (0-4) /hpf U Hyaline Cast (Auto) 1-5 (0-5) /lpf U Epithel Cells (Auto) 10-20 H (0-5) /lpf Urine Bacteria (Auto) 4+ H (Negative) Adenovirus (PCR) (NotDetected) B. pertussis DNA (PCR) (NotDetected) B.parapertussis DNA PCR (NotDetected) C. pneumoniae DNA (PCR) (NotDetected) Coronavirus OC43 (PCR) (NotDetected) Coronavirus HKU1 (PCR) (NotDetected) Coronavirus 229E (PCR) (NotDetected) SARS-CoV-2 (PCR) (NotDetected) Coronavirus NL63 (PCR) (NotDetected) Enterobacterales (PCR) (NotDetected) E. coli (PCR) (NotDetected) Human Metapneumovir PCR (NotDetected) Influenza Type A (PCR) (NotDetected) Influenza Type B (PCR) (NotDetected) M. pneumoniae (PCR) (NotDetected) Parainfluenza 1 (PCR) (NotDetected) Parainfluenza 2 (PCR) (NotDetected) Parainfluenza 3 (PCR) (NotDetected) Parainfluenza 4 (PCR) (NotDetected) RSV (PCR) (NotDetected) Entero/Rhino (PCR) (NotDetected) mcr-1 Colistin Res Gene PCR (NotDetected) blaIMP Car res Gene PCR (NotDetected) KPC-Carbap Res Gene PCR (NotDetected) blaNDM Car Res Gene PCR (NotDetected) OXA-48 Carbapenem Resis Gene (PCR) (NotDetected) blaVIM Car Res Gene PCR (NotDetected) CTX-M Gene Resistance (PCR) (NotDetected) Bld Cult ID Panel PCR (NotDetected) 12/20/22 Range/Units 19:31 WBC (4.8-10.8) K/ul RBC (4.20-5.40) M/uL Hgb (12.0-16.0) g/dl Hct (37.0-47.0) % MCV (80.0-100.0) fL MCH (25.0-34.0) pg MCHC (32.0-36.0) g/dL RDW Std Deviation (36.4-46.3) fL RDW Coeff of Beth (11.5-14.5) % Plt Count (130-400) K/uL MPV (9.4-12.4) fL Immature Gran % (Auto) % Neut % (Auto) % Lymph % (Auto) % Tucker % (Auto) % Eos % (Auto) % Baso % (Auto) % Neut # (Auto) (1.40-6.50) K/uL Lymph # (Auto) (1.2-3.4) K/uL Tucker # (Auto) (0.11-0.59) K/uL Eos # (Auto) (0-0.50) K/uL Baso # (Auto) (0-0.2) K/uL Immature Gran # (Auto) (0.01-0.20) K/uL Sodium (136-145) mmol/L Potassium (3.5-5.1) mmol/L Chloride (98-107) mmol/L Carbon Dioxide (21-32) mmol/L Anion Gap (3-11) BUN (6-23) mg/dl Creatinine (0.6-1.2) mg/dl Est Cr Clr Drug Dosing ml/min Est GFR ( Amer) ml/min Est GFR (Non-Af Amer) ml/min BUN/Creatinine Ratio (10-20) Glucose (70-99(Fasting)) mg/dl Calcium (8.6-10.3) mg/dl Magnesium (1.7-2.4) mg/dl Total Bilirubin (0.2-1.0) mg/dl AST (13-39) U/L ALT (7-52) U/L Alkaline Phosphatase (34-104) U/L Troponin I High Sens (0-14) pg/ml Total Protein (6.0-8.3) gm/dl Albumin (3.4-5.0) gm/dl Globulin (2.5-4.0) gm/dl Albumin/Globulin Ratio (0.9-2) Procalcitonin (0-0.5) ng/ml TSH (0.300-4.500) uIu/ml Urine Color Urine Appearance (Clear) Urine pH (4.5-7.5) Ur Specific [place] (1.000-1.030) Urine Protein (Negative) Urine Glucose (UA) (Negative) Urine Ketones (Negative) Urine Blood (Negative) Urine Nitrite (Negative) Urine Bilirubin (Negative) Urine Urobilinogen (Negative) Ur Leukocyte Esterase (Negative) Urine WBC (Auto) (0-5) /hpf Urine RBC (Auto) (0-4) /hpf U Hyaline Cast (Auto) (0-5) /lpf U Epithel Cells (Auto) (0-5) /lpf Urine Bacteria (Auto) (Negative) Adenovirus (PCR) (NotDetected) B. pertussis DNA (PCR) (NotDetected) B.parapertussis DNA PCR (NotDetected) C. pneumoniae DNA (PCR) (NotDetected) Coronavirus OC43 (PCR) (NotDetected) Coronavirus HKU1 (PCR) (NotDetected) Coronavirus 229E (PCR) (NotDetected) SARS-CoV-2 (PCR) (NotDetected) Coronavirus NL63 (PCR) (NotDetected) Enterobacterales (PCR) DETECTED A (NotDetected) E. coli (PCR) DETECTED A (NotDetected) Human Metapneumovir PCR (NotDetected) Influenza Type A (PCR) (NotDetected) Influenza Type B (PCR) (NotDetected) M. pneumoniae (PCR) (NotDetected) Parainfluenza 1 (PCR) (NotDetected) Parainfluenza 2 (PCR) (NotDetected) Parainfluenza 3 (PCR) (NotDetected) Parainfluenza 4 (PCR) (NotDetected) RSV (PCR) (NotDetected) Entero/Rhino (PCR) (NotDetected) mcr-1 Colistin Res Gene PCR Not Detected (NotDetected) blaIMP Car res Gene PCR Not Detected (NotDetected) KPC-Carbap Res Gene PCR Not Detected (NotDetected) blaNDM Car Res Gene PCR Not Detected (NotDetected) OXA-48 Carbapenem Resis Gene (PCR) Not Detected (NotDetected) blaVIM Car Res Gene PCR Not Detected (NotDetected) CTX-M Gene Resistance (PCR) Not Detected (NotDetected) Bld Cult ID Panel PCR See PCR Comment (NotDetected) Administered Medications Albuterol (Albut/Ipratrop 3mg/0.5mg Neb 3 Ml Vial) 3 ml NEB QIDR [facility]; Protocol Stop: 01/20/23 06:59 Last Admin: 12/21/22 10:57 Dose: 3 ml Documented By: Admin: 12/21/22 07:30 Dose: 3 ml Documented By: DENA Aspirin (Aspirin 81 Mg Ectab) [facility] Stop: 01/20/23 08:59 Last Admin: 12/21/22 08:47 Dose: 81 mg Documented By: Calcium Carbonate (Calcium Carbonate 1250mg Tab) 1,250 mg PO BID RUDOLPH Stop: 01/19/23 22:59 Last Admin: 12/21/22 08:45 Dose: 1,250 mg Documented By: Admin: 12/20/22 23:34 Dose: 1,250 mg Documented By: NELY Dorzolamide HCl (Dorzolamide Hcl 2% Oph Soln 10 Ml Btl) 1 drops OP BID RUDOLPH Stop: 01/19/23 22:32 Last Admin: 12/21/22 08:51 Dose: 1 drops Documented By: Admin: 12/20/22 23:33 Dose: 1 drops Documented By: NELY Enoxaparin Sodium (Enoxaparin Inj 40 Mg/0.4 Ml Syr) 40 mg SQ Q24H RUDOLPH Stop: 01/19/23 22:59 Last Admin: 12/20/22 23:33 Dose: 40 mg Documented By: NELY Guaifenesin (Guaifenesin 600 Mg Tabcr) 600 mg PO Q12 [facility]OLPH Stop: 01/20/23 08:59 Last Admin: 12/21/22 08:47 Dose: 600 mg Documented By: Latanoprost (Latanoprost 0.005% Op Soln 2.5 Ml Btl) 1 drops OPL HS RUDOLPH Stop: 01/19/23 22:32 Last Admin: 12/20/22 23:33 Dose: 1 drops Documented By: NELY Lisinopril (Lisinopril 40 Mg Tab) 40 mg PO DAILY RUDOLPH Stop: 01/20/23 08:59 Last Admin: 12/21/22 08:46 Dose: 40 mg Documented By: Metoprolol Succinate (Metoprolol Succ 50mg Ext Rel Tab) 100 mg PO DAILY RUDOLPH Stop: 01/20/23 08:59 Last Admin: 12/21/22 08:46 Dose: 100 mg Documented By: Multivitamins (Multivitamin Tab) 1 tab PO QAM RUDOLPH Stop: 01/20/23 08:59 Last Admin: 12/21/22 08:46 Dose: 1 tab Documented By: Pantoprazole Sodium (Pantoprazole 40 Mg Tab) 40 mg PO DAILY RUDOLPH Stop: 01/20/23 08:59 Last Admin: 12/21/22 10:09 Dose: 40 mg Documented By: Timolol Maleate (Timolol Maleate 0.25% Op Soln 5 Ml Btl) 1 drops OP BID RUDOLPH Stop: 01/19/23 22:32 Last Admin: 12/21/22 08:52 Dose: 1 drops Documented By: Admin: 12/20/22 23:33 Dose: 1 drops Documented By: NELY Discontinued Medications Albuterol (Albut/Ipratrop 3mg/0.5mg Neb 3 Ml Vial) Confirm Administered Dose 3 ml .ROUTE .STK-MED ONE Stop: 12/20/22 21:01 Last Admin: 12/20/22 21:03 Dose: 3 ml Documented By: HERBERT Sodium Chloride (Nss 1000ml) 1,000 mls @ 999 mls/hr IV .Q1H1M RUDOLPH Stop: 12/20/22 18:30 Last Infusion: 12/20/22 18:58 Dose: 0 mls/hr Documented By: Admin: 12/20/22 17:55 Dose: 999 mls/hr Documented By: HERBERT Ceftriaxone Sodium (Rocephin) 2,000 mg in 70 mls @ 140 mls/hr IV NOW STA Stop: 12/20/22 19:10 Last Infusion: 12/20/22 20:29 Dose: 0 mls/hr Documented By: Admin: 12/20/22 19:48 Dose: 140 mls/hr Documented By: HERBERT Sodium Chloride (Nss 1000ml) 1,000 mls @ 999 mls/hr IV .Q1H1M ONE Stop: 12/20/22 19:43 Last Infusion: 12/20/22 20:29 Dose: 0 mls/hr Documented By: Admin: 12/20/22 18:54 Dose: 999 mls/hr Documented By: HERBERT Azithromycin 500 mg/ Dextrose 255 mls @ 125 mls/hr IV ONE ONE Stop: 12/21/22 00:02 Last Infusion: 12/21/22 01:24 Dose: 0 mls/hr Documented By: Admin: 12/20/22 23:13 Dose: 125 mls/hr Documented By: NELY Potassium Chloride/Sodium Chloride (Normal Saline W/20 Meq Kcl) 20 meq in 1,000 mls @ 80 mls/hr IV .[id number] RUDOLPH; Protocol Stop: 12/21/22 11:29 Last Admin: 08/19/23 23:32 Dose: 80 mls/hr Documented By: NELY Ioversol (Optiray 320 100ml) 90 ml IV ONCE ONE Stop: 12/20/22 20:22 Last Admin: 12/20/22 20:22 Dose: 90 ml Documented By: LINDA Ioversol (Ioversol 350 Mg 125ml Prefilled Syringe) 69 ml IV ONCE ONE Stop: 12/20/22 22:14 Last Admin: 12/20/22 22:15 Dose: 69 ml Documented By: LINDA Methylprednisolone (Methylprednisolone 125 Mg/2 Ml Vial) 125 mg IV NOW STA Stop: 12/20/22 21:43 Last Admin: 12/20/22 21:51 Dose: 125 mg Documented By: HERBERT Methylprednisolone (Methylprednisolone 125 Mg/2 Ml Vial) Confirm Administered D ose 125 mg .ROUTE .STK-MED ONE Stop: 12/20/22 21:48 Last Admin: 12/20/22 23:30 Dose: Not Given Documented By: NELY Morphine Sulfate (Morphine Sulfate 2 Mg/Ml Carp) 2 mg IV NOW STA Stop: 12/20/22 21:44 Last Admin: 12/20/22 21:52 Dose: 2 mg Documented By: HERBERT Imaging Data Radiologist's Impression: Chest X-Ray 12/20/22 17:30 XR chest 1V portable HISTORY: 82 years-old Female weakness acute weakness COMPARISON: 09/18/2020 TECHNIQUE: AP view of the chest FINDINGS: Cardiomediastinal and hilar silhouettes are within normal limits. No pneumothorax, pleural effusion, airspace consolidation or pulmonary edema. Bones are grossly intact. IMPRESSION: No acute process. ACT 112: Negative or not required by law. The above report was generated using voice recognition software. It may contain grammatical, syntax or spelling errors. Electronically signed by: Anil Ceja M.D. 12/20/2022 6:00 PM Abdomen/Pelvis CT 12/20/22 19:23 Exam(s): CT ABDOMEN + PELVIS With Contrast IV Amt: OPTIRAY 320 90 ML EXAM: CT Abdomen and Pelvis With Intravenous Contrast CLINICAL HISTORY: WBC 24. TECHNIQUE: Axial computed tomography images of the abdomen and pelvis with intravenous contrast. Automated exposure control was utilized for the study. A dose lowering technique was utilized adhering to the principles of ALARA. CONTRAST: Patient received OPTIRAY 320 90 ML of IV contrast Patient received OPTIRAY 320 90 ML of IV contrast COMPARISON: CT abdomen and pelvis 10/12/2019 FINDINGS: Lung bases: Unremarkable. No mass. No consolidation. ABDOMEN: Liver: Mild periportal edema is likely relates to aggressive IV hydration. The liver is otherwise unremarkable. Gallbladder and bile ducts: Unremarkable. No calcified stones. No ductal dilation. Pancreas: Unremarkable. No mass. No ductal dilation. Spleen: Unremarkable. No splenomegaly. Adrenals: Unremarkable. No mass. Kidneys and ureters: Bilateral striated nephrograms are concerning for acute pyelonephritis. No hydronephrosis. Stomach and bowel: Unremarkable. No obstruction. No mucosal thickening. PELVIS: Appendix: No findings to suggest acute appendicitis. Bladder: Unremarkable. No mass. Reproductive: Unremarkable as visualized. ABDOMEN and PELVIS: Intraperitoneal space: Unremarkable. No free air. No significant fluid collection. Bones/joints: There are degenerative changes of the spine. No acute fracture. No dislocation. Soft tissues: Unremarkable. Vasculature: Mild atherosclerosis. No abdominal aortic aneurysm. Lymph nodes: Unremarkable. No enlarged lymph nodes. IMPRESSION: 1. Bilateral striated nephrograms are concerning for acute pyelonephritis. The differential also includes ATN and less likely infiltrative neoplasm. 2. Periportal edema likely relates to aggressive IV hydration. Electronically signed by: Keisha Quiroz MD 12/20/22 23:19 PM Discharge Plan Visit Data Chief Complaint: Illness Stated Complaint: ILLNESS ED Provider: Yefri Kee Discharge Problem: Pyelonephritis, Hyponatremia, Elevated troponin, Acute dehydration Patient Disposition: Admitted As Inpatient Discharge Instructions Interventions: ED Discharge Assessment Last Done: 12/20/22 22:20
[2022-12-20] MEDS ORDERED: SODIUM CHLORIDE 0.9% 1000ML 1,000 ML IV SCH (17:30)
[2022-12-20 17:58] LABS: Hematocrit (blood only) 35.6 % (37.0-47.0); Hemoglobin 12.1 g/dl (12.0-16.0); Mean Corpuscular Hemoglobin 28.9 pg (25.0-34.0); Mean Platelet Volume 10.4 fL (9.4-12.4); Platelet Count 218 K/uL (130-400); RDW Coefficient of Variation 12.8 % (11.5-14.5); RDW Standard Deviation 39.6 fL (36.4-46.3); Red Blood Count 4.19 M/uL (4.20-5.40); White Blood Count 24.09 K/ul (4.8-10.8)
--- NOTE | 2022-12-20 18:02 | XRay Report ---
XR chest 1V portable HISTORY: 82 years-old Female weakness acute weakness COMPARISON: 09/18/2020 TECHNIQUE: AP view of the chest FINDINGS: Cardiomediastinal and hilar silhouettes are within normal limits. No pneumothorax, pleural effusion, airspace consolidation or pulmonary edema. Bones are grossly intact. IMPRESSION: No acute process. ACT 112: Negative or not required by law. The above report was generated using voice recognition software. It may contain grammatical, syntax o r spelling errors. Electronically signed by: Anil Ceja M.D. 12/20/2022 6:00 PM
[2022-12-20 18:16] LABS: Albumin Globulin Ratio 1.1 (0.9-2); BUN Creatinine Ratio 47.6 (10-20); Bilirubin,Total 0.9 mg/dl (0.2-1.0); Calcium 9.4 mg/dl (8.6-10.3); Creatinine Clr Calc Pharmacy 40.7 ml/min; Est GFR (African American) 78.3 ml/min; Est GFR (Non-African American) 67.6 ml/min; Globulin 3.8 gm/dl (2.5-4.0); Potassium 3.7 mmol/L (3.5-5.1); Total Protein 7.8 gm/dl (6.0-8.3)
[2022-12-20 18:30] LABS: Basophils # (auto) 0.06 K/uL (0-0.2); Basophils % (auto) 0.2 %; Immature Granulocytes # (auto) 0.41 K/uL (0.01-0.20); Immature Granulocytes % (auto) 1.7 %; Lymphocytes # (auto) 0.82 K/uL (1.2-3.4); Lymphocytes % (auto) 3.4 %; Monocytes # (auto) 2.23 K/uL (0.11-0.59); Monocytes % (auto) 9.3 %; Neutrophils # (auto) 20.57 K/uL (1.40-6.50); Neutrophils % (auto) 85.4 %
[2022-12-20] MEDS ORDERED: cefTRIAXone SODIUM 2,000 MG/70 ML BAG IV STA (18:41)
[2022-12-20] MEDS ORDERED: SODIUM CHLORIDE 0.9% 1000ML 1,000 ML IV ONE (18:43)
[2022-12-20 19:03] LABS: Adenovirus PCR Not Detected (NotDetected); Bordetella parapertussis PCR Not Detected (NotDetected); Bordetella pertussis PCR Not Detected (NotDetected); Chlamydia pneumoniae PCR Not Detected (NotDetected); Coronavirus 229E PCR Not Detected (NotDetected); Coronavirus CoV-2 (COVID19)PCR Not Detected (NotDetected); Coronavirus HKU1 PCR Not Detected (NotDetected); Coronavirus NL63 PCR Not Detected (NotDetected); Coronavirus OC43PCR Not Detected (NotDetected); Human Metapneumovirus PCR Not Detected (NotDetected); Influenza A PCR Not Detected (NotDetected); Influenza B PCR Not Detected (NotDetected); Mycoplasma pneumoniae PCR Not Detected (NotDetected); Parainfluenza Virus 1 PCR Not Detected (NotDetected); Parainfluenza Virus 2 PCR Not Detected (NotDetected); Parainfluenza Virus 3 PCR Not Detected (NotDetected); Parainfluenza Virus 4 PCR Not Detected (NotDetected); Respiratory Syncytial VirusPCR Not Detected (NotDetected); Rhinovirus/Enterovirus PCR Not Detected (NotDetected)
[2022-12-20 19:18] LABS: Appearance Urine Cloudy (Clear); Bacteria Urine Automated 4+ (Negative); Bilirubin Urine Negative (Negative); Blood Urine 2+ (Negative); Color Urine Dark Yellow; Glucose Urine UA Negative (Negative); Ketones Urine Trace (Negative); Leukocyte Esterase Urine 2+ (Negative); Nitrite Urine Positive (Negative); Protein Urine 3+ (Negative); RBC Urine Automated 0-4 /hpf (0-4); Specific Gravity Urine 1.016 (1.000-1.030); Urobilinogen Urine Negative (Negative); WBC Urine Automated >30 /hpf (0-5); pH Urine 5.5 (4.5-7.5)
[2022-12-20] MEDS ORDERED: OPTIRAY 320 100ml IV ONE (20:21)
--- NOTE | 2022-12-20 20:52 | History & Physical Report ---
Date of Service December 20, 2022 Assessment & Plan (1) HTN (hypertension): (2) Hypercholesterolemia: (3) Urinary tract infection: (4) COPD (chronic obstructive pulmonary disease): (5) Tobacco use disorder, continuous: (6) Glaucoma: (7) COPD exacerbation: Plan Urinary tract infection- Follow urine culture and sensitivity Empiric ceftriaxone 2 g IV given x1 in the ED Ceftriaxone 1 g IV daily Status post NSS 2 L in the ED NSS + KCl 20 mEq at 80 mils per hour x1 L COPD exacerbation/tobacco use disorder- Tobacco cessation counseling Duonebs every 4 hours while awake and every 2 hours when necessary. Guaifenesin extended release 600 mg by mouth every 12 hours Nasal cannula oxygen, titrate to keep pulse ox 92-94% Azithromycin 500 mg IV daily Elevated troponin/hypertension- The patient will be admitted to telemetry for serial cardiac enzymes, serial EKG's, cardiac rhythm monitoring Continue metoprolol succinate 100 mg daily, lisinopril 40 mg daily Troponin 0.90 upon admission. Likely type II supply/demand mismatch Aspirin 81 mg every morning History of Present Illness Chief Complaint: The patient presents to the emergency department with complaint of generalized weakness, lethargy Primary Care Provider: Silvio Lugo, III, ORDER ANALYST The patient is an 82-year-old female with a past medical history including osteoarthritis of left knee, hyponatremia, hypophosphatemia, hypercholesterolemia, glaucoma, hypertension, GERD and tobacco use disorder. She presents to the emergency department with complaint of generalized weakness, lethargy and decreased appetite. Allergies Allergy/AdvReac Type Severity Reaction Status Date / Time nickel Allergy Unknown INFECTED Verified 11/11/22 13:13 EARS cat dander AdvReac Unknown Watery Eye Verified 11/11/22 13:13 brimonidine AdvReac CRUSTY EYES Verified 11/11/22 13:13 Home Medications Medication Instructions Recorded Confirmed Type biotin 10,000 mcg capsule 10,000 mcg PO QAM 10/12/19 12/20/22 History dorzolamide 2 % eye drops (Trusopt) 1 drp ophthalmic (eye) BID 10/12/19 12/20/22 History latanoprost 0.005 % eye drops 1 drp OPL HS 10/12/19 12/20/22 History (Xalatan) multivitamin 1 tab PO QAM 10/12/19 12/20/22 History timolol maleate (PF) 0.25 % eye 1 drp ophthalmic (eye) BID 09/12/20 12/20/22 History drops in a dropperette calcium carbonate 600 mg calcium 600 mg PO BID 06/24/21 12/20/22 History (1,500 mg) tablet (Calcium) lisinopril 40 mg tablet 40 mg PO DAILY #90 tabs 07/01/22 12/20/22 Rx metoprolol succinate 100 mg 100 mg PO DAILY #90 tabs 09/10/22 12/20/22 Rx tablet,extended release 24 hr acetic acid 2 % ear solution 5 drp otic (ear) QID #15 mL 11/11/22 12/20/22 Rx pantoprazole 40 mg tablet,delayed 40 mg PO DAILY #90 tabs 11/11/22 12/20/22 Rx release Past Med/Surg History Medical History (Updated 12/20/22 @ 21:08 by Filiberto Frances MD) Abnormal CBC lymphocytes; 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. PT THINKS THIS WAS DONE FOR SOB. History of colonoscopy History of eye surgery FOR GLAUCOMA-RIGHT EYE Hx of cataract surgery R/L S/P knee replacement Family History Aunt Family history of diabetes mellitus Uncle Family history of diabetes mellitus Father Myocardial infarction Mother Parkinsons disease Denies family history of Ovarian cancer Prostate cancer Breast cancer Colorectal cancer Social History Smoking Status: Former smoker Tobacco Type: Cigarettes packs per day: 0.5; Second Hand Exposure: No; Do You Dip or Chew Tobacco: No; Hx Alcohol Use: Yes Alcohol type: hard liquor Alcohol Intake Frequency: Monthly or Less Hx Substance Use: No Preferred Language: Hungarian Communication Ability: Effective Visual Impairment: Limited Hearing Ability: Normal Systems Requirements Planner Required: No Beliefs That Will Affect Care: None marital status: Single Current Living Situation: Alone Current Living Situation Comment: [place] current occupational status: retired How many Children do You have: 2 Feels Safe at Home: Yes Childhood Exposure to Second-Hand Smoke: Yes Diet: regular Diet Comment: regular Dental Care, Regularly: Yes Physical Activity Frequency: Does not Exercise Seatbelt Use: always Sunscreen Use: Yes Assistive Devices: Walker Review of Systems Review of Systems: The patient denies chest pain, palpitations, lower extremity swelling, sore throat, fevers, chills, sweats, nausea, vomiting, diarrhea , constipation, abdominal pain, pelvic pain, blood in urine or stool, dysuria, urinary frequency or urgency, lightheadedness, dizziness, headache, loss of consciousness, rash, abnormal bruising or bleeding, imbalance, focal weakness, numbness or tingling in arms or legs, generalized arthralgias or myalgias, back or neck pain, or night sweats. The review of systems is otherwise negative other than for that already noted above, and at least 10 systems have been reviewed. Physical Exam Physical Exam: The patient is awake, alert and oriented 3, well developed and well nourished, normocephalic and atraumatic, lying in bed and in no acute distress. HEENT--PERRL, EOMI, mucous membranes and oropharynx mildly dry. Neck--supple. No JVD. No bruits. Thyroid normal, trachea midline, no adenopathy. Heart--normal S1 and S2. No murmurs, rubs or gallops. Lungs--overall diminished. No respiratory distress, no accessory muscle use. Abdomen--normal bowel sounds and soft. Nontender. Nondistended, no hernias or masses, no organomegaly. Extremities--no cyanosis or clubbing. No edema. Dermatologic--normal skin turgor, normal color, no abnormal lymph nodes, no rash. Neurologic--cranial nerves II through XII grossly intact. Rheumatologic--normal range of motion. Psychiatric--normal affect. Results & Data Results & Data Vital Signs (Past 12 Hours) Vital Signs Temp Pulse Pulse Resp BP BP Pulse Ox 12/20/22 19:49 82 19 169/89 H 97 12/20/22 17:58 75 18 131/51 L 95 12/20/22 17:58 75 18 96 12/20/22 17:04 37.2 C 79 18 143/80 H 95 O2 Del Method 12/20/22 19:49 Room Air 12/20/22 17:58 Room Air 12/20/22 17:58 Room Air 12/20/22 17:04 Room Air Laboratory Results Laboratory Results WBC 24.09 K/ul (4.8-10.8) H 12/20/22 17:15 RBC 4.19 M/uL (4.20-5.40) L 12/20/22 17:15 Hgb 12.1 g/dl (12.0-16.0) 12/20/22 17:15 Hct 35.6 % (37.0-47.0) L 12/20/22 17:15 MCV 85.0 fL (80.0-100.0) 12/20/22 17:15 MCH 28.9 pg (25.0-34.0) 12/20/22 17:15 MCHC 34.0 g/dL (32.0-36.0) 12/20/22 17:15 RDW Std Deviation 39.6 fL (36.4-46.3) 12/20/22 17:15 RDW Coeff of Beth 12.8 % (11.5-14.5) 12/20/22 17:15 Plt Count 218 K/uL (130-400) 12/20/22 17:15 MPV 10.4 fL (9.4-12.4) 12/20/22 17:15 Immature Gran % (Auto) 1.7 % 12/20/22 17:15 Neut % (Auto) 85.4 % 12/20/22 17:15 Lymph % (Auto) 3.4 % 12/20/22 17:15 [place] % (Auto) 9.3 % 12/20/22 17:15 Eos % (Auto) 0.0 % 12/20/22 17:15 Baso % (Auto) 0.2 % 12/20/22 17:15 Neut # (Auto) 20.57 K/uL (1.40-6.50) H 12/20/22 17:15 Lymph # (Auto) 0.82 K/uL (1.2-3.4) L 12/20/22 17:15 [place] # (Auto) 2.23 K/uL (0.11-0.59) H 12/20/22 17:15 Eos # (Auto) 0.00 K/uL (0-0.50) 12/20/22 17:15 Baso # (Auto) 0.06 K/uL (0-0.2) 12/20/22 17:15 Immature Gran # (Auto) 0.41 K/uL (0.01-0.20) H 12/20/22 17:15 Sodium 135 mmol/L (136-145) L 12/20/22 17:15 Potassium 3.7 mmol/L (3.5-5.1) 12/20/22 17:15 Chloride 98 mmol/L (98-107) 12/20/22 17:15 Carbon Dioxide 28 mmol/L (21-32) 12/20/22 17:15 Anion Gap 9 (3-11) 12/20/22 17:15 BUN 39 mg/dl (6-23) H 12/20/22 17:15 Creatinine 0.82 mg/dl (0.6-1.2) 12/20/22 17:15 Est Cr Clr Drug Dosing 40.7 ml/min 12/20/22 17:15 Est GFR ( Amer) 78.3 ml/min 12/20/22 17:15 Est GFR (Non-Af Amer) 67.6 ml/min 12/20/22 17:15 BUN/Creatinine Ratio 47.6 (10-20) H 12/20/22 17:15 Glucose 147 mg/dl (70-99(Fasting)) H 12/20/22 17:15 Calcium 9.4 mg/dl (8.6-10.3) 12/20/22 17:15 Magnesium 2.0 mg/dl (1.7-2.4) 12/20/22 17:15 Total Bilirubin 0.9 mg/dl (0.2-1.0) 12/20/22 17:15 AST 22 U/L (13-39) 12/20/22 17:15 ALT 13 U/L (7-52) 12/20/22 17:15 Alkaline Phosphatase 74 U/L (34-104) 12/20/22 17:15 Troponin I High Sens 90.0 pg/ml (0-14) H* 12/20/22 17:15 Total Protein 7.8 gm/dl (6.0-8.3) 12/20/22 17:15 Albumin 4.0 gm/dl (3.4-5.0) 12/20/22 17:15 Globulin 3.8 gm/dl (2.5-4.0) 12/20/22 17:15 Albumin/Globulin Ratio 1.1 (0.9-2) 12/20/22 17:15 Procalcitonin 17.40 ng/ml (0-0.5) H 12/20/22 19:28 TSH 1.076 uIu/ml (0.300-4.500) 12/20/22 17:15 Urine Color Dark Yellow 12/20/22 18:50 Urine Appearance Cloudy (Clear) A 12/20/22 18:50 Urine pH 5.5 (4.5-7.5) 12/20/22 18:50 Ur Specific [place] 1.016 (1.000-1.030) 12/20/22 18:50 Urine Protein 3+ (Negative) H 12/20/22 18:50 Urine Glucose (UA) Negative (Negative) 12/20/22 18:50 Urine Ketones Trace (Negative) H 12/20/22 18:50 Urine Blood 2+ (Negative) H 12/20/22 18:50 Urine Nitrite Positive (Negative) A 12/20/22 18:50 Urine Bilirubin Negative (Negative) 12/20/22 18:50 Urine Urobilinogen Negative (Negative) 12/20/22 18:50 Ur Leukocyte Esterase 2+ (Negative) H 12/20/22 18:50 Urine WBC (Auto) >30 /hpf (0-5) H 12/20/22 18:50 Urine RBC (Auto) 0-4 /hpf (0-4) 12/20/22 18:50 U Hyaline Cast (Auto) 1-5 /lpf (0-5) 12/20/22 18:50 U Epithel Cells (Auto) 10-20 /lpf (0-5) H 12/20/22 18:50 Urine Bacteria (Auto) 4+ (Negative) H 12/20/22 18:50 Adenovirus (PCR) Not Detected (NotDetected) 12/20/22 17:00 B. pertussis DNA (PCR) Not Detected (NotDetected) 12/20/22 17:00 B.parapertussis DNA PCR Not Detected (NotDetected) 12/20/22 17:00 C. pneumoniae DNA (PCR) Not Detected (NotDetected) 12/20/22 17:00 Coronavirus OC43 (PCR) Not Detected (NotDetected) 12/20/22 17:00 Coronavirus HKU1 (PCR) Not Detected (NotDetected) 12/20/22 17:00 Coronavirus 229E (PCR) Not Detected (NotDetected) 12/20/22 17:00 SARS-CoV-2 (PCR) Not Detected (NotDetected) 12/20/22 17:00 Coronavirus NL63 (PCR) Not Detected (NotDetected) 12/20/22 17:00 Human Metapneumovir PCR Not Detected (NotDetected) 12/20/22 17:00 Influenza Type A (PCR) Not Detected (NotDetected) 12/20/22 17:00 Influenza Type B (PCR) Not Detected (NotDetected) 12/20/22 17:00 M. pneumoniae (PCR) Not Detected (NotDetected) 12/20/22 17:00 Parainfluenza 1 (PCR) Not Detected (NotDetected) 12/20/22 17:00 Parainfluenza 2 (PCR) Not Detected (NotDetected) 12/20/22 17:00 Parainfluenza 3 (PCR) Not Detected (NotDetected) 12/20/22 17:00 Parainfluenza 4 (PCR) Not Detected (NotDetected) 12/20/22 17:00 RSV (PCR) Not Detected (NotDetected) 12/20/22 17:00 Entero/Rhino (PCR) Not Detected (NotDetected) 12/20/22 17:00 Impressions Chest X-Ray 12/20/22 17:30 XR chest 1V portable HISTORY: 82 years-old Female weakness acute weakness COMPARISON: 09/18/2020 TECHNIQUE: AP view of the chest FINDINGS: Cardiomediastinal and hilar silhouettes are within normal limits. No pneumothorax, pleural effusion, airspace consolidation or pulmonary edema. Bones are grossly intact. IMPRESSION: No acute process. ACT 112: Negative or not required by law. The above report was generated using voice recognition software. It may contain grammatical, syntax or spelling errors. Electronically signed by: Anil Ceja M.D. 12/20/2022 6:00 PM Code Status & VTE Plan Code Status Full code VTE Prophylaxis Plan VTE Prophylaxis will be ordered: Yes PG Care Time/CCT Total # of Minutes Spent Total Time Spent with Patient: Total time spent is greater than 50% in coordination of care (as documented) at patient's floor/unit and/or counseling patient: Coding Level of Care Code 21006 INT INP/OBS CARE 3/75MIN Diagnoses HTN (hypertension) I10 Hypertension type: essential hypertension Hypercholesterolemia E78.00 Urinary tract infection N39.0 COPD (chronic obstructive pulmonary disease) J44.9 Tobacco use disorder, continuous F17.209 Glaucoma H40.9 Glaucoma type: unspecified Laterality: unspecified laterality COPD exacerbation J44.1 (1) HTN (hypertension) Hypertension type: essential hypertension Qualified Code(s): I10 - Essential (primary) hypertension (6) Glaucoma Glaucoma type: unspecified Laterality: unspecified laterality Qualified Code(s): H40.9 - Unspecified glaucoma
[2022-12-20] MEDS ORDERED: ALBUT/IPRATROP 3MG/0.5MG NEB 3 ML VIAL ONE (21:00)
[2022-12-20] MEDS ORDERED: methylPREDNISolone 125 MG/2 ML VIAL IV STA (21:42)
[2022-12-20] MEDS ORDERED: MoRPHine SULFATE 2 MG/ML CARP IV STA (21:43)
[2022-12-20] MEDS ORDERED: methylPREDNISolone 125 MG/2 ML VIAL ONE (21:47)
[2022-12-20] MEDS ORDERED: AZITHROMYCIN 500 MG in DEXTROSE 5% 250 ML IV ONE (22:00)
[2022-12-20] MEDS ORDERED: IOVERSOL 350 MG 125mL Prefilled Syringe IV ONE (22:13)
[2022-12-20] MEDS ORDERED: ACETAMINOPHEN 325 MG TAB PO PRN (22:33)
[2022-12-20] MEDS ORDERED: ONDANSETRON INJ 2 MG/ML 2 ML VIAL IV PRN (22:33)
[2022-12-20] MEDS ORDERED: ALBUTEROL HFA 8 GM INHALER INH PRN (22:33)
[2022-12-20] MEDS ORDERED: NSS + 20MEQ KCL 20 MEQ/1,000 ML BAG IV SCH (23:00)
--- NOTE | 2022-12-20 23:20 | CT Scan Report ---
Exam(s): CT ABDOMEN + PELVIS With Contrast IV Amt: OPTIRAY 320 90 ML EXAM: CT Abdomen and Pelvis With Intravenous Contrast CLINICAL HISTORY: WBC 24. TECHNIQUE: Axial computed tomography images of the abdomen and pelvis with intravenous contrast. Automated exposure control was utilized for the study. A dose lowering technique was utilized adhering to the principles of ALARA. CONTRAST: Patient received OPTIRAY 320 90 ML of IV contrast Patient received OPTIRAY 320 90 ML of IV contrast COMPARISON: CT abdomen and pelvis 10/12/2019 FINDINGS: Lung bases: Unremarkable. No mass. No consolidation. ABDOMEN: Liver: Mild periportal edema is likely relates to aggressive IV hydration. The liver is otherwise unremarkable. Gallbladder and bile ducts: Unremarkable. No calcified stones. No ductal dilation. Pancreas: Unremarkable. No mass. No ductal dilation. Spleen: Unremarkable. No splenomegaly. Adrenals: Unremarkable. No mass. Kidneys and ureters: Bilateral striated nephrograms are concerning for acute pyelonephritis. No hydronephrosis. Stomach and bowel: Unremarkable. No obstruction. No mucosal thickening. PELVIS: Appendix: No findings to suggest acute appendicitis. Bladder: Unremarkable. No mass. Reproductive: Unremarkable as visualized. ABDOMEN and PELVIS: Intraperitoneal space: Unremarkable. No free air. No significant fluid collection. Bones/joints: There are degenerative changes of the spine. No acute fracture. No dislocation. Soft tissues: Unremarkable. Vasculature: Mild atherosclerosis. No abdominal aortic aneurysm. Lymph nodes: Unremarkable. No enlarged lymph nodes. IMPRESSION: 1. Bilateral striated nephrograms are concerning for acute pyelonephritis. The differential also includes ATN and less likely infiltrative neoplasm. 2. Periportal edema likely relates to aggressive IV hydration. Electronically signed by: Keisha Quiroz MD 12/20/22 23:19 PM
[2022-12-20] MEDS: LATANOPROST 0.005% OP SOLN 2.5 ML BTL OPL SCH (23:33)
[2022-12-20] MEDS: DORZOLAMIDE HCL 2% OPH SOLN 10 ML BTL OP SCH (23:33)
[2022-12-20] MEDS: ENOXAPARIN INJ 40 MG/0.4 ML SYR SQ SCH (23:33)
[2022-12-20] MEDS: TIMOLOL MALEATE 0.25% OP SOLN 5 ML BTL OP SCH (23:33)
[2022-12-20] MEDS: CALCIUM CARBONATE 1250MG TAB PO SCH (23:34)
--- NOTE | 2022-12-20 23:37 | CT Scan Report ---
Exam(s): CTA CHEST IV Amt: OPTIRAY 350 69ML EXAM: CT Angiography Chest With Intravenous Contrast CLINICAL HISTORY: Pulmonary embolus. TECHNIQUE: Axial computed tomographic angiography images of the chest with intravenous contrast. Automated exposure control was utilized for the study. A dose lowering technique was utilized adhering to the principles of ALARA. MIP reconstructed images were created and reviewed. COMPARISON: Chest radiograph 12/20/2022 FINDINGS: Pulmonary arteries: Unremarkable. No pulmonary embolus. Aorta: Mild atherosclerosis. No aneurysm or dissection. Lungs: Interseptal thickening is concerning for pulmonary edema. Superimposed airspace opacities throughout the right lung and left lower lobe. Pleural space: Unremarkable. No significant effusion. No pneumothorax. Heart: Unremarkable. No cardiomegaly. No significant pericardial effusion. No evidence of RV dysfunction. Bones/joints: There are degenerative changes of the spine. No acute fracture. Soft tissues: Unremarkable. Lymph nodes: Unremarkable. No enlarged lymph nodes. Kidneys and ureters: Abnormal appearance of the superior aspect of the right kidney which is minimally visualized on the last slice of the study. IMPRESSION: 1. No pulmonary embolus. 2. Interseptal thickening is concerning for pulmonary edema. 3. Superimposed airspace opacities throughout the right lung and left lower lobe. This could represent pulmonary edema, however cannot exclude superimposed atypical infection and/or aspiration. 4. Abnormal appearance of the superior aspect of the right kidney which is minimally visualized on the last slice of the study. Consider further evaluation with CT abdomen and pelvis. Electronically signed by: Keisha Quiroz MD 12/20/22 23:36 PM
[2022-12-21 06:27] LABS: Albumin Globulin Ratio 1.1 (0.9-2); Albumin Level 3.2 gm/dl (3.4-5.0); BUN Creatinine Ratio 45.2 (10-20); Bilirubin,Total 0.6 mg/dl (0.2-1.0); Calcium 8.2 mg/dl (8.6-10.3); Creatinine Clr Calc Pharmacy 47.6 ml/min; Est GFR (African American) 90.2 ml/min; Est GFR (Non-African American) 77.8 ml/min; Globulin 2.8 gm/dl (2.5-4.0); Magnesium 1.9 mg/dl (1.7-2.4); Potassium 3.7 mmol/L (3.5-5.1)
[2022-12-21 06:33] LABS: Troponin I High Sensitivity 95.6 pg/ml (0-14)
[2022-12-21 06:34] LABS: Hemoglobin 10.1 g/dl (12.0-16.0); Mean Corpuscular Hemoglobin 28.9 pg (25.0-34.0); Mean Corpuscular Hgb Conc 33.7 g/dL (32.0-36.0); Mean Platelet Volume 10.8 fL (9.4-12.4); Platelet Count 161 K/uL (130-400); RDW Coefficient of Variation 13.1 % (11.5-14.5); RDW Standard Deviation 41.1 fL (36.4-46.3); Red Blood Count 3.49 M/uL (4.20-5.40); White Blood Count 33.04 K/ul (4.8-10.8)
[2022-12-21 06:36] LABS: Basophils % (auto) 0.3 %; Eosinophils # (auto) 2.43 K/uL (0-0.50); Eosinophils % (auto) 7.4 %; Immature Granulocytes # (auto) 1.83 K/uL (0.01-0.20); Immature Granulocytes % (auto) 5.5 %; Lymphocytes # (auto) 0.49 K/uL (1.2-3.4); Lymphocytes % (auto) 1.5 %; Monocytes # (auto) 1.29 K/uL (0.11-0.59); Monocytes % (auto) 3.9 %; Neutrophils % (auto) 81.4 %; RBC Morphology Unremarkable
[2022-12-21 06:41] LABS: A calco-baum cmplx NotReported Not Detected (NotDetected); Bact fragilis Not Reported Not Detected (NotDetected); C auris Not Reported Not Detected (NotDetected); CTX-M Resistant Gene Not Detected (NotDetected); Calbicans Not Reported Not Detected (NotDetected); Candida glabrata Not Reported Not Detected (NotDetected); Candida krusei Not Reported Not Detected (NotDetected); Cneoformans/gatti Not Reported Not Detected (NotDetected); Cparapsilosis Not Reported Not Detected (NotDetected); Ctropicalis Not Reported Not Detected (NotDetected); E cloacae compx Not Reported Not Detected (NotDetected); Efaecalis Not Reported Not Detected (NotDetected); Efaecium Not Reported Not Detected (NotDetected); Enterobacterales Not Reported DETECTED (NotDetected); Escherichia coli Not Reported DETECTED (NotDetected); H influenzae Not Reported Not Detected (NotDetected); IMP Resistant Gene Not Detected (NotDetected); K aerogenes Not Reported Not Detected (NotDetected); KPC Resistant Gene Not Detected (NotDetected); Koxytoca Not Reported Not Detected (NotDetected); Kpneumoniae grp Not Reported Not Detected (NotDetected); Lmonocyt Not Reported Not Detected (NotDetected); N meningitidis Not Reported Not Detected (NotDetected); NDM Resistant Gene Not Detected (NotDetected); OXA 48 Like Resistant Gene Not Detected (NotDetected); P aeruginosa Not Reported Not Detected (NotDetected); Proteus spp Not Reported Not Detected (NotDetected); Salmonella spp Not Reported Not Detected (NotDetected); Smarcescens Not Reported Not Detected (NotDetected); Staph lugdunensis Not Reported Not Detected (NotDetected); Staph spp. Not Reported Not Detected (NotDetected); Staphaureus Not Reported Not Detected (NotDetected); Staphepi Not Reported Not Detected (NotDetected); Stenmaltophilia Not Reported Not Detected (NotDetected); Strep agal(GrpB) Not Reported Not Detected (NotDetected); Strep pneum Not Reported Not Detected (NotDetected); Strep pyog (GrpA) Not Reported Not Detected (NotDetected); Strep spp Not Reported Not Detected (NotDetected); VIM Resistant Gene Not Detected (NotDetected); mcr-1 Colistin Resistant Gene Not Detected (NotDetected)
[2022-12-21 06:53] LABS: Enterobacterales DETECTED (NotDetected)
[2022-12-21] MEDS: ALBUT/IPRATROP 3MG/0.5MG NEB 3 ML VIAL NEB SCH ×4 (07:30→20:01)
[2022-12-21] MEDS: CALCIUM CARBONATE 1250MG TAB PO SCH ×2 (08:45→20:44)
[2022-12-21] MEDS: MULTIVITAMIN TAB PO SCH (08:46)
[2022-12-21] MEDS: METOPROLOL SUCC 50MG EXT REL TAB PO SCH (08:46)
[2022-12-21] MEDS: ASPIRIN 81 MG ECTAB PO SCH (08:47)
[2022-12-21] MEDS: guaiFENesin 600 MG TABCR PO SCH ×2 (08:47→20:46)
[2022-12-21] MEDS: DORZOLAMIDE HCL 2% OPH SOLN 10 ML BTL OP SCH ×2 (08:51→20:47)
[2022-12-21] MEDS: TIMOLOL MALEATE 0.25% OP SOLN 5 ML BTL OP SCH ×2 (08:52→20:47)
[2022-12-21] MEDS ORDERED: lisinopril 40 MG TAB PO SCH (09:00)
[2022-12-21] MEDS: PANTOprazole 40 MG TAB PO SCH (10:09)
--- NOTE | 2022-12-21 13:43 | Hospitalist Progress Note ---
Date of Service December 21, 2022 Assessment & Plan (1) Bacteremia due to Escherichia coli: Plan: patient with evidence of UTI, pyelonephritis on CT a/p, and all 4 blood cultures from admission + for GNR. BioFire + for e.coli. Cont rocephin. Await cultures. d/c IV fluids due to imaging of chest showing ?pulmonary edema? (2) Pyelonephritis: Plan: b/l, as suggested on CT of the abd/pelvis cont IV rocephin await cultures no flank pain/tenderness on exam (3) Urinary tract infection: Plan: as above (4) Elevated troponin: Plan: likely myocardial demand ischemia in the setting of #1, #2, #3 and poorly controlled HTN no evidence of ACS (5) Tobacco use disorder, continuous: (6) COPD (chronic obstructive pulmonary disease): Plan: no exacerbation at this time O2 sats acceptable cont nebs (7) HTN (hypertension): Plan: poorly controlled add amlodipine 2.5mg po x 1 now substitute losartan for lisinopril as latter could be contributing to chronic cough lasix x 1 now cont metoprolol xl (8) Hypercholesterolemia: Plan: not on meds for such (9) Glaucoma: Plan: cont home drops (10) History of DVT (deep vein thrombosis): Plan: noted (11) Abnormal chest CT: Plan: pneumonia vs pulmonary edema suspect latter lasix 20mg po x 1 d/c IV fluids needs better BP control echo to check LV function re-eval tomorrow if pneumonia is already on rocephin/zithromax (12) DVT prophylaxis: Plan: lovenox 40mg daily Plan PT, OT evals requested speech therapy eval requested -- is chronic cough due to dysphagia/aspiration?? son updated at bedside Admission and Anticipated Discharge Date Admission Date: December 20, 2022 Subjective patient resting in bed son at bedside pt reports feeling better today - a little more energy, and better appetite we discussed her chest imaging suggesting pneumonia vs edema she denies cough or dyspnea at rest no dysphagia states she had a little abdominal pain a few days ago at home (left sided) but this is resolved Review of Systems Review of Systems: gen - no fevers or chills cv - no chest pain; no edema pulm - no dyspnea; chronic cough - for 2+ years??; mainly dry GI - no nausea/emesis Physical Exam Physical Exam: gen - NAD, pleasant neck - JVD to the jaw mouth - MMM heart - RRR, s1 s2 lungs - diffuse rales right lung extending 1/2 [address] up back posteriorly; mild rales L base; no wheeze; no increased work of breathing abd - soft NT ND BS+; no flank tenderness b/l to palpation ext - no edema, pulses 2+ b/l Results & Data Results & Data Vital Signs (Past 12 Hours) Vital Signs Temp Pulse Pulse Resp BP Pulse Ox O2 Del Method 12/21/22 11:26 36.3 C L 67 18 172/81 H 94 Room Air 12/21/22 10:58 74 16 93 Room Air 12/21/22 07:00 74 12/21/22 07:23 36.6 C 73 18 170/70 H 95 Nasal Cannula 12/21/22 07:32 77 18 96 Nasal Cannula 12/21/22 04:52 36.5 C 78 18 115/68 97 Nasal Cannula 12/21/22 03:01 Nasal Cannula O2 Flow Rate 12/21/22 11:26 12/21/22 10:58 12/21/22 07:00 12/21/22 07:23 1.5 12/21/22 07:32 1.5 12/21/22 04:52 3 12/21/22 03:01 2 Laboratory Results Laboratory Results - last 24 hr 12/20/22 12/21/22 12/21/22 19:31 05:38 05:38 WBC 33.04 H* RBC 3.49 L Hgb 10.1 L Hct 30.0 L MCV 86.0 MCH 28.9 MCHC 33.7 RDW Std Deviation 41.1 RDW Coeff of Beth 13.1 Plt Count 161 MPV 10.8 Immature Gran % (Auto) 5.5 Neut % (Auto) 81.4 Lymph % (Auto) 1.5 [place] % (Auto) 3.9 Eos % (Auto) 7.4 Baso % (Auto) 0.3 Neut # (Auto) 26.90 H Lymph # (Auto) 0.49 L [place] # (Auto) 1.29 H Eos # (Auto) 2.43 H Baso # (Auto) 0.10 Immature Gran # (Auto) 1.83 H RBC Morphology Unremarkable Sodium 136 Potassium 3.7 Chloride 105 Carbon Dioxide 23 Anion Gap 8 BUN 33 H Creatinine 0.73 Est Cr Clr Drug Dosing 47.6 Est GFR ( Amer) 90.2 Est GFR (Non-Af Amer) 77.8 BUN/Creatinine Ratio 45.2 H Glucose 169 H Calcium 8.2 L Magnesium 1.9 Total Bilirubin 0.6 AST 30 ALT 19 Alkaline Phosphatase 84 Troponin I High Sens 95.6 H* D Total Protein 6.0 D Albumin 3.2 L Globulin 2.8 Albumin/Globulin Ratio 1.1 Enterobacterales (PCR) DETECTED A E. coli (PCR) DETECTED A mcr-1 Colistin Res Gene PCR Not Detected blaIMP Car res Gene PCR Not Detected KPC-Carbap Res Gene PCR Not Detected blaNDM Car Res Gene PCR Not Detected OXA-48 Carbapenem Resis Gene (PCR) Not Detected blaVIM Car Res Gene PCR Not Detected CTX-M Gene Resistance (PCR) Not Detected Bld Cult ID Panel PCR See PCR Comment 12/21/22 10:06 WBC RBC Hgb Hct MCV MCH MCHC RDW Std Deviation RDW Coeff of Beth Plt Count MPV Immature Gran % (Auto) Neut % (Auto) Lymph % (Auto) [place] % (Auto) Eos % (Auto) Baso % (Auto) Neut # (Auto) Lymph # (Auto) [place] # (Auto) Eos # (Auto) Baso # (Auto) Immature Gran # (Auto) RBC Morphology Sodium Potassium Chloride Carbon Dioxide Anion Gap BUN Creatinine Est Cr Clr Drug Dosing Est GFR ( Amer) Est GFR (Non-Af Amer) BUN/Creatinine Ratio Glucose Calcium Magnesium Total Bilirubin AST ALT Alkaline Phosphatase Troponin I High Sens 100.8 H* Total Protein Albumin Globulin Albumin/Globulin Ratio Enterobacterales (PCR) E. coli (PCR) mcr-1 Colistin Res Gene PCR blaIMP Car res Gene PCR KPC-Carbap Res Gene PCR blaNDM Car Res Gene PCR OXA-48 Carbapenem Resis Gene (PCR) blaVIM Car Res Gene PCR CTX-M Gene Resistance (PCR) Bld Cult ID Panel PCR Diagnostic Findings Microbiology 12/20/22 19:31 Blood Aerobic Blood Culture - Preliminary Gram negative bacilli 12/20/22 19:31 Blood Anaerobic Blood Culture - Preliminary Gram negative bacilli 12/20/22 18:50 Urine,Clean Catch Urine Culture - Preliminary Gram negative bacilli 12/20/22 19:28 Blood Aerobic Blood Culture - Preliminary Gram negative bacilli 12/20/22 19:28 Blood Anaerobic Blood Culture - Preliminary Gram negative bacilli PG Care Time/CCT Total # of Minutes Spent Total Time Spent with Patient: Total time spent is greater than 50% in coordination of care (as documented) at patient's floor/unit and/or counseling patient: Coding Level of Care Code 68735 SUB INP/OBS CARE 3/50MIN Diagnoses Bacteremia due to Escherichia coli R78.81; B96.20 Pyelonephritis N12 Urinary tract infection N39.0 Elevated troponin R77.8 Tobacco use disorder, continuous F17.209 COPD (chronic obstructive pulmonary disease) J44.9 HTN (hypertension) I10 Hypertension type: essential hypertension Hypercholesterolemia E78.00 Glaucoma H40.9 Glaucoma type: unspecified Laterality: unspecified laterality History of DVT (deep vein thrombosis) Z86.[address] R93.89 DVT prophylaxis Z29.9 (7) HTN (hypertension) Hypertension type: essential hypertension Qualified Code(s): I10 - Essential (primary) hypertension (9) Glaucoma Glaucoma type: unspecified Laterality: unspecified laterality Qualified Code(s): H40.9 - Unspecified glaucoma
--- NOTE | 2022-12-21 14:45 | XRay Report ---
XR chest 2V PA/lateral HISTORY: 82 years-old Female b/l rales, worse on right; edema?pneumonia? Acute shortness of breathe COMPARISON: 12/20/2022 TECHNIQUE: PA and lateral views of the chest FINDINGS: Cardiac silhouette is enlarged. Pulmonary vascular congestion with interstitial coarsening. Progressi ve patchy right midlung and right basilar airspace opacities. Trace pleural effusions. No pneumothora x. Degenerative changes of the shoulders and spine. IMPRESSION: 1. Cardiomegaly with mild pulmonary edema. 2. Mildly progressed ill-defined airspace opacities of the right lung which are most pronounced in th e right lung base which may represent asymmetric alveolar pulmonary edema versus superimposed pneumon ia. 3. Small pleural effusions. ACT 112: Negative or not required by law. The above report was generated using voice recognition software. It may contain grammatical, syntax o r spelling errors. Electronically signed by: Anil Ceja M.D. 12/21/2022 2:43 PM
[2022-12-21] MEDS ORDERED: FUROSEMIDE 20 MG TAB PO ONE (17:19)
[2022-12-21] MEDS ORDERED: amLODIPine BESYLATE 5 MG TAB PO ONE (17:20)
[2022-12-21] MEDS ORDERED: cefTRIAXone SODIUM 1,000 MG in DEXTROSE 5% 50 ML IV SCH (20:00)
[2022-12-21] MEDS: LATANOPROST 0.005% OP SOLN 2.5 ML BTL OPL SCH (20:48)
[2022-12-21] MEDS: AZITHROMYCIN 500 MG in DEXTROSE 5% 250 ML IV SCH (20:55)
[2022-12-22] MEDS: ENOXAPARIN INJ 40 MG/0.4 ML SYR SQ SCH ×2 (01:20→23:28)
[2022-12-22 06:51] LABS: Hematocrit (blood only) 32.3 % (37.0-47.0); Hemoglobin 10.9 g/dl (12.0-16.0); Mean Corpuscular Hemoglobin 28.6 pg (25.0-34.0); Mean Corpuscular Hgb Conc 33.7 g/dL (32.0-36.0); Mean Corpuscular Volume 84.8 fL (80.0-100.0); Mean Platelet Volume 11.1 fL (9.4-12.4); Platelet Count 180 K/uL (130-400); RDW Coefficient of Variation 13.1 % (11.5-14.5); RDW Standard Deviation 40.2 fL (36.4-46.3); Red Blood Count 3.81 M/uL (4.20-5.40); White Blood Count 32.35 K/ul (4.8-10.8)
[2022-12-22 07:08] LABS: BUN Creatinine Ratio 49.2 (10-20); Calcium 9.1 mg/dl (8.6-10.3); Creatinine Clr Calc Pharmacy 53.5 ml/min; Est GFR (African American) 97.2 ml/min; Est GFR (Non-African American) 83.9 ml/min; Potassium 3.7 mmol/L (3.5-5.1)
[2022-12-22] MEDS: ALBUT/IPRATROP 3MG/0.5MG NEB 3 ML VIAL NEB SCH ×4 (07:11→19:31)
[2022-12-22 07:12] LABS: Basophils # (auto) 0.09 K/uL (0-0.2); Basophils % (auto) 0.3 %; Echinocytes 1+; Immature Granulocytes # (auto) 1.02 K/uL (0.01-0.20); Immature Granulocytes % (auto) 3.2 %; Lymphocytes # (auto) 1.19 K/uL (1.2-3.4); Lymphocytes % (auto) 3.7 %; Monocytes # (auto) 2.12 K/uL (0.11-0.59); Monocytes % (auto) 6.6 %; Neutrophils # (auto) 27.93 K/uL (1.40-6.50); Neutrophils % (auto) 86.2 %
[2022-12-22 08:06] LABS: Estimated Average Glucose 117 mg/dl; Hemoglobin A1C 5.7 % (4.5-5.6)
--- NOTE | 2022-12-22 09:18 | Electrocardiogram Report ---
Test Reason : Blood Pressure : / mmHG Vent. Rate : 078 BPM Atrial Rate : 078 BPM P-R Int : 140 ms QRS Dur : 088 ms QT Int : 396 ms P-R-T Axes : 057 014 019 degrees QTc Int : 451 ms Sinus rhythm with frequent Premature ventricular complexes Septal infarct (cited on or before 20-DEC-2022) Abnormal ECG When compared with ECG of 18-SEP-2020 10:36, Premature ventricular complexes are now Present Questionable change in QRS axis Confirmed by Gustavo Antunez ([id number]) on 12/22/2022 9:17:58 AM Referred By: REFERRED SELF Confirmed By:Gustavo Antunez
--- NOTE | 2022-12-22 09:24 | Electrocardiogram Report ---
Test Reason : Blood Pressure : / mmHG Vent. Rate : 099 BPM Atrial Rate : 099 BPM P-R Int : 120 ms QRS Dur : 086 ms QT Int : 328 ms P-R-T Axes : 053 013 029 degrees QTc Int : 420 ms Normal sinus rhythm Septal infarct (cited on or before 20-DEC-2022) Abnormal ECG When compared with ECG of 20-DEC-2022 17:07, (unconfirmed) Premature ventricular complexes are no longer Present Confirmed by Gustavo Antunez ([id number]) on 12/22/2022 9:24:26 AM Referred By: REFERRED SELF Confirmed By:Gustavo Antunez
[2022-12-22] MEDS: amLODIPine BESYLATE 5 MG TAB PO SCH (09:49)
[2022-12-22] MEDS: LOSARTAN POTASSIUM 50 MG TAB PO SCH (09:49)
[2022-12-22] MEDS: METOPROLOL SUCC 50MG EXT REL TAB PO SCH (09:51)
[2022-12-22] MEDS: MULTIVITAMIN TAB PO SCH (09:51)
[2022-12-22] MEDS: DORZOLAMIDE HCL 2% OPH SOLN 10 ML BTL OP SCH ×2 (09:52→20:18)
[2022-12-22] MEDS: guaiFENesin 600 MG TABCR PO SCH ×2 (09:52→20:16)
[2022-12-22] MEDS: ASPIRIN 81 MG ECTAB PO SCH (09:52)
[2022-12-22] MEDS: PANTOprazole 40 MG TAB PO SCH (09:53)
[2022-12-22] MEDS: CALCIUM CARBONATE 1250MG TAB PO SCH ×2 (09:53→20:20)
[2022-12-22] MEDS: TIMOLOL MALEATE 0.25% OP SOLN 5 ML BTL OP SCH ×2 (09:53→21:03)
[2022-12-22] MEDS ORDERED: FUROSEMIDE INJ 20 MG/2 ML VIAL IV ONE (10:30)
[2022-12-22] MEDS: POTASSIUM CHLORIDE CRTAB 20 MEQ TABCR PO SCH ×2 (11:00→13:39)
--- NOTE | 2022-12-22 12:54 | Hospitalist Progress Note ---
Date of Service December 22, 2022 Assessment & Plan (1) Bacteremia due to Escherichia coli: Plan: patient with evidence of UTI, pyelonephritis on CT a/p, and all 4 blood cultures from admission + for GNR (presumed to be e.coli). BioFire + for e.coli. Cont rocephin 2gm IV daily. Urine cx did result - e.coli IS sensitive to rocephin. Await final blood cultures. (2) Pyelonephritis: Plan: b/l, as suggested on CT of the abd/pelvis cont IV rocephin no flank pain/tenderness on exam (3) Urinary tract infection: Plan: as above cont rocephin (4) HFrEF (heart failure with reduced ejection fraction): Plan: due to pulmonary edema on imaging and physical exam echo obtained today --> EF 35-40%, global hypokinesis. etiology?? ischemic? (reported past h/o CAD, septal infarct on EKG, etc) due to frequent PVCs? other? ultimately may need additional ischemic w/u with heart cath. outpatient heart monitor to quantify PVCs? cont metoprolol succ due to chronic cough lisinopril was switched to losartan I do believe that she is in pulmonary edema gave lasix yesterday repeat lasix again today - 20mg IV x 1 likely to need additional diuresis tomorrow will need cardiology referral (5) Dysphagia: Plan: appreciate speech eval video swallow - mild silent aspiration but speech recommending no changes to diet or liquids (6) Leukocytosis: Plan: 2nd to UTI/pyelo/bacteremia/?pneumonia also, received very large dose of solumedrol (125mg ) in the ER the night of presentation cont IV abx repeat CBC am (7) Elevated troponin: Plan: likely myocardial demand ischemia in the setting of #1, #2, #3 and poorly controlled HTN no evidence of ACS - never had chest pain or other cardiac symptoms see discussion above re: echo findings, however (8) Tobacco use disorder, continuous: (9) COPD (chronic obstructive pulmonary disease): Plan: no exacerbation at this time O2 sats acceptable cont nebs (10) HTN (hypertension): Plan: poorly controlled added amlodipine 2.5mg po x 1 now substitute losartan for lisinopril as latter could be contributing to chronic cough cont metoprolol xl cont lasix diuresis (11) Hypercholesterolemia: Plan: not on meds for such (12) Glaucoma: Plan: cont home drops (13) History of DVT (deep vein thrombosis): Plan: noted (14) Abnormal chest CT: Plan: pneumonia vs pulmonary edema suspect latter especially given the echo findings mago needs better BP control if there is any element of pneumonia she continues on rocephin/zithromax (15) DVT prophylaxis: Plan: lovenox 40mg daily (16) Chronic cough: Plan: COPD? lisinopril? silent aspiration? d/c lisinopril --> change to losartan cont nebs no changes in diet per speech therapy Plan PT, OT yohana requested I called and updated son by phone this evening Admission and Anticipated Discharge Date Admission Date: December 20, 2022 Subjective per staff has been intermittently confused was restless this am staff noted coughing with taking meds this am speech had previously been consulted - they performed video swallow this am during my rounds patient states she "doesn't feel that good" she had an appetite yesterday, but doesn't have an appetite for food today continues with cough, largely dry dyspnea is improved today denies abdominal pain tele overnight - NSR Review of Systems Review of Systems: gen - no fevers; fatigue/weak cv - orthopnea but no chest pain pulm - cough but denies dyspnea GI - no vomiting Physical Exam Physical Exam: gen - NAD, pleasant - but a little confused and looks tired today neck - JVD to the jaw still present mouth - MMM heart - RRR, s1 s2, 1/6 systolic murmur LSB lungs - diffuse rales remain b/l, especially right lung; no wheeze; no increased work of breathing abd - soft NT ND BS+ ext - no edema, pulses 2+ b/l psych - a/o x 3 but somewhat confused for current events Results & Data Results & Data Vital Signs (Past 12 Hours) Vital Signs Temp Pulse Resp BP Pulse Ox O2 Del Method 12/22/22 10:00 86 L Room Air 12/22/22 10:40 93 H 30 H 92 Room Air 12/22/22 08:46 36.9 C 84 16 188/72 H 92 Room Air 12/22/22 07:11 75 18 92 Room Air 12/22/22 03:10 37 C 80 18 179/85 H 91 Room Air Laboratory Results Laboratory Results - last 24 hr 12/22/22 12/22/22 12/22/22 06:24 06:24 06:24 WBC 32.35 H* RBC 3.81 L Hgb 10.9 L Hct 32.3 L MCV 84.8 MCH 28.6 MCHC 33.7 RDW Std Deviation 40.2 RDW Coeff of Beth 13.1 Plt Count 180 MPV 11.1 Immature Gran % (Auto) 3.2 Neut % (Auto) 86.2 Lymph % (Auto) 3.7 Piatt % (Auto) 6.6 Eos % (Auto) 0.0 Baso % (Auto) 0.3 Neut # (Auto) 27.93 H Lymph # (Auto) 1.19 L [place] # (Auto) 2.12 H Eos # (Auto) 0.00 Baso # (Auto) 0.09 Immature Gran # (Auto) 1.02 H Echinocytes 1+ Sodium 136 Potassium 3.7 Chloride 103 Carbon Dioxide 26 Anion Gap 7 BUN 32 H Creatinine 0.65 Est Cr Clr Drug Dosing 53.5 Est GFR ( Amer) 97.2 Est GFR (Non-Af Amer) 83.9 BUN/Creatinine Ratio 49.2 H Glucose 146 H Estimat Average Glucose 117 Hemoglobin A1c 5.7 H Calcium 9.1 urine cx - e.coli, sens to rocephin blood cx's - GNR Diagnostic Findings echo - PG Care Time/CCT Total # of Minutes Spent Total Time Spent with Patient: Total time spent is greater than 50% in coordination of care (as documented) at patient's floor/unit and/or counseling patient: Coding Level of Care Code 27250 SUB INP/OBS CARE 3/50MIN Diagnoses Bacteremia due to Escherichia coli R78.81; B96.20 Pyelonephritis N12 Urinary tract infection N39.0 HFrEF (heart failure with reduced ejection fraction) I50.20 Dysphagia R13.10 Leukocytosis D72.829 Elevated troponin R77.8 Tobacco use disorder, continuous F17.209 COPD (chronic obstructive pulmonary disease) J44.9 HTN (hypertension) I10 Hypertension type: essential hypertension Hypercholesterolemia E78.00 Glaucoma H40.9 Glaucoma type: unspecified Laterality: unspecified laterality History of DVT (deep vein thrombosis) Z86.[address] R93.89 DVT prophylaxis Z29.9 Chronic cough R05.3 (10) HTN (hypertension) Hypertension type: essential hypertension Qualified Code(s): I10 - Essential (primary) hypertension (12) Glaucoma Glaucoma type: unspecified Laterality: unspecified laterality Qualified Code(s): H40.9 - Unspecified glaucoma
--- NOTE | 2022-12-22 13:22 | Fluoroscopy Report ---
FL video swallow CLINICAL HISTORY: 82 years-old Female with assess for aspiration. TECHNIQUE: Video fluoroscopic evaluation of swallowing was performed in the AP and lateral projection s by the speech pathology staff. The patient is fed varying consistencies of barium. FLUOROSCOPY TIME: 2.16 minutes.. 3906 images were obtained. 6.98 mGy COMPARISON STUDY: Chest radiograph 12/21/2022 FINDINGS: Trace silent aspiration with thin liquid barium and nectar consistencies. Prolonged oral ph aryngeal transit with solid consistency. Decreased epiglottic deflection. IMPRESSION: 1. Multiple consistency aspiration. 2. Please see the speech pathologist report for detailed findings and recommendations. ACT 112: Negative or not required by law. Electronically signed by: Anil Ceja M.D. 12/22/2022 1:20 PM
--- NOTE | 2022-12-22 17:48 | XCELERA ---
[id number]
[2022-12-22] MEDS: cefTRIAXone SODIUM 2,000 MG in DEXTROSE 5% 50 ML IV SCH (20:07)
[2022-12-22] MEDS: LATANOPROST 0.005% OP SOLN 2.5 ML BTL OPL SCH (20:18)
[2022-12-22] MEDS: AZITHROMYCIN 500 MG in DEXTROSE 5% 250 ML IV SCH (21:19)
[2022-12-22] MEDS: MELATONIN 3 MG TAB PO SCH (22:13)
[2022-12-23 05:07] LABS: Basophils # (auto) 0.08 K/uL (0-0.2); Basophils % (auto) 0.3 %; Eosinophils # (auto) 0.07 K/uL (0-0.50); Eosinophils % (auto) 0.3 %; Hematocrit (blood only) 30.1 % (37.0-47.0); Hemoglobin 10.3 g/dl (12.0-16.0); Immature Granulocytes # (auto) 0.81 K/uL (0.01-0.20); Immature Granulocytes % (auto) 3.3 %; Lymphocytes # (auto) 1.84 K/uL (1.2-3.4); Lymphocytes % (auto) 7.6 %; Mean Corpuscular Hemoglobin 28.8 pg (25.0-34.0); Mean Corpuscular Hgb Conc 34.2 g/dL (32.0-36.0); Mean Corpuscular Volume 84.1 fL (80.0-100.0); Mean Platelet Volume 10.7 fL (9.4-12.4); Monocytes # (auto) 1.62 K/uL (0.11-0.59); Monocytes % (auto) 6.7 %; Neutrophils # (auto) 19.81 K/uL (1.40-6.50); Neutrophils % (auto) 81.8 %; Platelet Count 187 K/uL (130-400); RDW Coefficient of Variation 12.7 % (11.5-14.5); RDW Standard Deviation 39.3 fL (36.4-46.3); Red Blood Count 3.58 M/uL (4.20-5.40); White Blood Count 24.23 K/ul (4.8-10.8)
[2022-12-23 05:28] LABS: Magnesium 1.8 mg/dl (1.7-2.4)
--- NOTE | 2022-12-23 05:43 | Electrocardiogram Report ---
Test Reason : Blood Pressure : / mmHG Vent. Rate : 074 BPM Atrial Rate : 074 BPM P-R Int : 158 ms QRS Dur : 084 ms QT Int : 416 ms P-R-T Axes : 070 024 022 degrees QTc Int : 461 ms Sinus rhythm with occasional Premature ventricular complexes Septal infarct (cited on or before 20-DEC-2022) Abnormal ECG When compared with ECG of 20-DEC-2022 21:34, (unconfirmed) Premature ventricular complexes are now Present Confirmed by Gustavo Antunez ([id number]) on 12/23/2022 5:42:58 AM Referred By: REFERRED SELF Confirmed By:Gustavo Antunez
[2022-12-23 05:44] LABS: BUN Creatinine Ratio 46.4 (10-20); Calcium 8.4 mg/dl (8.6-10.3); Creatinine Clr Calc Pharmacy 60.7 ml/min; Est GFR (African American) 102.1 ml/min; Est GFR (Non-African American) 88.1 ml/min; Potassium 3.2 mmol/L (3.5-5.1)
[2022-12-23] MEDS: ALBUT/IPRATROP 3MG/0.5MG NEB 3 ML VIAL NEB SCH (07:05)
[2022-12-23] MEDS: PANTOprazole 40 MG TAB PO SCH (09:00)
[2022-12-23] MEDS: POTASSIUM CHLORIDE CRTAB 20 MEQ TABCR PO SCH ×2 (09:00→21:13)
[2022-12-23] MEDS: METOPROLOL SUCC 50MG EXT REL TAB PO SCH (09:00)
[2022-12-23] MEDS: MULTIVITAMIN TAB PO SCH (09:00)
[2022-12-23] MEDS: ASPIRIN 81 MG ECTAB PO SCH (09:01)
[2022-12-23] MEDS: TIMOLOL MALEATE 0.25% OP SOLN 5 ML BTL OP SCH ×2 (09:01→21:40)
[2022-12-23] MEDS: amLODIPine BESYLATE 5 MG TAB PO SCH (09:01)
[2022-12-23] MEDS: CALCIUM CARBONATE 1250MG TAB PO SCH ×2 (09:01→21:43)
[2022-12-23] MEDS: guaiFENesin 600 MG TABCR PO SCH ×2 (09:01→21:14)
[2022-12-23] MEDS: LOSARTAN POTASSIUM 50 MG TAB PO SCH (09:01)
[2022-12-23] MEDS: DORZOLAMIDE HCL 2% OPH SOLN 10 ML BTL OP SCH ×2 (09:01→21:41)
[2022-12-23] MEDS ORDERED: ALBUT/IPRATROP 3MG/0.5MG NEB 3 ML VIAL NEB PRN (09:10)
[2022-12-23] MEDS ORDERED: POTASSIUM CHLORIDE CRTAB 20 MEQ TABCR PO STA (19:16)
--- NOTE | 2022-12-23 19:18 | Hospitalist Progress Note ---
Date of Service December 23, 2022 Assessment & Plan (1) Bacteremia due to Escherichia coli: Plan: patient with evidence of UTI, pyelonephritis on CT a/p, and all 4 blood cultures from admission + for GNR (presumed to be e.coli). BioFire + for e.coli. Cont rocephin 2gm IV daily. Urine cx did result - e.coli IS sensitive to rocephin. Await final blood cultures. (2) Pyelonephritis: Plan: b/l, as suggested on CT of the abd/pelvis cont IV rocephin no flank pain/tenderness on exam (3) Urinary tract infection: Plan: as above cont rocephin (4) HFrEF (heart failure with reduced ejection fraction): Plan: due to pulmonary edema on imaging and physical exam echo obtained today --> EF 35-40%, global hypokinesis. etiology?? ischemic? (reported past h/o CAD, septal infarct on EKG, etc) due to frequent PVCs? other? ultimately may need additional ischemic w/u with heart cath. outpatient heart monitor to quantify PVCs? cont metoprolol succ due to chronic cough lisinopril was switched to losartan She got IV Lasix yesterday Avis better in response to it. Replete potassium May need p.o. Lasix to go home with will need cardiology referral (5) Dysphagia: Plan: appreciate speech eval video swallow - mild silent aspiration but speech recommending no changes to diet or liquids (6) Leukocytosis: Plan: 2nd to UTI/pyelo/bacteremia/?pneumonia also, received very large dose of solumedrol (125mg ) in the ER the night of presentation cont IV abx repeat CBC am (7) Elevated troponin: Plan: likely myocardial demand ischemia in the setting of #1, #2, #3 and poorly controlled HTN no evidence of ACS - never had chest pain or other cardiac symptoms see discussion above re: echo findings, however (8) Tobacco use disorder, continuous: (9) COPD (chronic obstructive pulmonary disease): Plan: no exacerbation at this time O2 sats acceptable cont nebs (10) HTN (hypertension): Plan: poorly controlled added amlodipine 2.5mg po x 1 now substitute losartan for lisinopril as latter could be contributing to chronic cough cont metoprolol xl cont lasix diuresis Well-controlled today (11) Hypercholesterolemia: Plan: not on meds for such (12) Glaucoma: Plan: cont home drops (13) History of DVT (deep vein thrombosis): Plan: noted (14) Abnormal chest CT: Plan: pneumonia vs pulmonary edema suspect latter especially given the echo findings mago needs better BP control if there is any element of pneumonia she continues on rocephin/zithromax (15) DVT prophylaxis: Plan: lovenox 40mg daily (16) Chronic cough: Plan: COPD? lisinopril? silent aspiration? d/c lisinopril --> change to losartan cont nebs no changes in diet per speech therapy Plan PT, OT yohana requested I called and updated son by phone this evening Admission and Anticipated Discharge Date Admission Date: December 20, 2022 Subjective Patient feels better overall. Denies chest pain or shortness of breath. Review of Systems Review of Systems: All systems reviewed & are unremarkable except as noted in Subjective Physical Exam Physical Exam: General: Awake, conversant Heart: S1, S2/regular rate and rhythm, no murmur rubs or gallops Lungs: Clear to auscultation bilaterally. Normal effort Abdomen: Soft/nontender/nondistended. No hepatosplenomegaly Extremities: No clubbing/cyanosis. No edema Behavior: Appropriate, cooperative Results & Data Results & Data Vital Signs (Past 12 Hours) Vital Signs Temp Pulse Pulse Resp BP Pulse Ox O2 Del Method 12/23/22 15:40 36.9 C 75 17 116/75 97 Nasal Cannula 12/23/22 16:01 73 12/23/22 11:16 36.9 C 75 18 120/73 96 Nasal Cannula 12/23/22 08:08 36.4 C L 77 18 152/81 H 98 Nasal Cannula 12/23/22 08:13 Nasal Cannula O2 Flow Rate 12/23/22 15:40 2 12/23/22 16:01 12/23/22 11:16 2 12/23/22 08:08 2 12/23/22 08:13 2 Laboratory Results Abnormal lab results 12/23/22 12/23/22 Range/Units 04:43 04:43 WBC 24.23 H (4.8-10.8) K/ul RBC 3.58 L (4.20-5.40) M/uL Hgb 10.3 L (12.0-16.0) g/dl Hct 30.1 L (37.0-47.0) % Neut # (Auto) 19.81 H (1.40-6.50) K/uL [place] # (Auto) 1.62 H (0.11-0.59) K/uL Immature Gran # (Auto) 0.81 H (0.01-0.20) K/uL Sodium 132 L (136-145) mmol/L Potassium 3.2 L (3.5-5.1) mmol/L Chloride 97 L (98-107) mmol/L BUN 26 H (6-23) mg/dl Creatinine 0.56 L (0.6-1.2) mg/dl BUN/Creatinine Ratio 46.4 H (10-20) Glucose 102 H (70-99(Fasting)) mg/dl Calcium 8.4 L (8.6-10.3) mg/dl PG Care Time/CCT Total # of Minutes Spent Total Time Spent with Patient: Total time spent is greater than 50% in coordination of care (as documented) at patient's floor/unit and/or counseling patient: Coding Level of Care Code 63251 SUB INP/OBS CARE MIN Diagnoses Bacteremia due to Escherichia coli R78.81; B96.20 Pyelonephritis N12 Urinary tract infection N39.0 HFrEF (heart failure with reduced ejection fraction) I50.20 Dysphagia R13.10 Leukocytosis D72.829 Elevated troponin R77.8 Tobacco use disorder, continuous F17.209 COPD (chronic obstructive pulmonary disease) J44.9 HTN (hypertension) I10 Hypertension type: essential hypertension Hypercholesterolemia E78.00 Glaucoma H40.9 Glaucoma type: unspecified Laterality: unspecified laterality History of DVT (deep vein thrombosis) Z86.[address] R93.89 DVT prophylaxis Z29.9 Chronic cough R05.3 (10) HTN (hypertension) Hypertension type: essential hypertension Qualified Code(s): I10 - Essential (primary) hypertension (12) Glaucoma Glaucoma type: unspecified Laterality: unspecified laterality Qualified Code(s): H40.9 - Unspecified glaucoma
[2022-12-23] MEDS: POTASSIUM CHLORIDE / WTR 10 MEQ/100 ML PLCT IV SCH ×2 (19:59→21:39)
[2022-12-23] MEDS: AZITHROMYCIN 500 MG in DEXTROSE 5% 250 ML IV SCH (21:12)
[2022-12-23] MEDS: MELATONIN 3 MG TAB PO SCH (21:40)
[2022-12-23] MEDS: LATANOPROST 0.005% OP SOLN 2.5 ML BTL OPL SCH (21:41)
[2022-12-23] MEDS: cefTRIAXone SODIUM 2,000 MG in DEXTROSE 5% 50 ML IV SCH (21:43)
[2022-12-23] MEDS: ENOXAPARIN INJ 40 MG/0.4 ML SYR SQ SCH (21:44)
[2022-12-24] MEDS: POTASSIUM CHLORIDE / WTR 10 MEQ/100 ML PLCT IV SCH ×2 (00:41→01:57)
[2022-12-24] MEDS: LOSARTAN POTASSIUM 50 MG TAB PO SCH (08:11)
[2022-12-24] MEDS: METOPROLOL SUCC 50MG EXT REL TAB PO SCH (08:11)
[2022-12-24] MEDS: ASPIRIN 81 MG ECTAB PO SCH (08:11)
[2022-12-24] MEDS: PANTOprazole 40 MG TAB PO SCH (08:11)
[2022-12-24] MEDS: guaiFENesin 600 MG TABCR PO SCH ×2 (08:11→20:20)
[2022-12-24] MEDS: MULTIVITAMIN TAB PO SCH (08:11)
[2022-12-24] MEDS: CALCIUM CARBONATE 1250MG TAB PO SCH ×2 (08:12→20:20)
[2022-12-24] MEDS: amLODIPine BESYLATE 5 MG TAB PO SCH (08:12)
[2022-12-24] MEDS: DORZOLAMIDE HCL 2% OPH SOLN 10 ML BTL OP SCH ×2 (08:20→20:17)
[2022-12-24] MEDS: TIMOLOL MALEATE 0.25% OP SOLN 5 ML BTL OP SCH ×2 (08:20→20:18)
[2022-12-24] MEDS: FUROSEMIDE 20 MG TAB PO SCH (15:20)
--- NOTE | 2022-12-24 17:16 | Hospitalist Progress Note ---
Date of Service December 24, 2022 Assessment & Plan (1) Bacteremia due to Escherichia coli: Plan: patient with evidence of UTI, pyelonephritis on CT a/p, and all 4 blood cultures from admission + for GNR. BioFire + for e.coli. Cont rocephin 2gm IV daily. Urine cx did result - e.coli IS sensitive to rocephin. Blood culture positive for E. coli (2) Pyelonephritis: Plan: b/l, as suggested on CT of the abd/pelvis cont IV rocephin no flank pain/tenderness on exam (3) Urinary tract infection: Plan: as above cont rocephin (4) HFrEF (heart failure with reduced ejection fraction): Plan: due to pulmonary edema on imaging and physical exam echo obtained today --> EF 35-40%, global hypokinesis. etiology?? ischemic? (reported past h/o CAD, septal infarct on EKG, etc) due to frequent PVCs? other? ultimately may need additional ischemic w/u with heart cath. outpatient heart monitor to quantify PVCs? cont metoprolol succ due to chronic cough lisinopril was switched to losartan She got IV Lasix during this hospital stay Ferney better in response to it. Repleted potassium started her on 20 mg of p.o. Lasix will need cardiology referral (5) Dysphagia: Plan: appreciate speech eval video swallow - mild silent aspiration but speech recommending no changes to diet or liquids (6) Leukocytosis: Plan: 2nd to UTI/pyelo/bacteremia/?pneumonia also, received very large dose of solumedrol (125mg ) in the ER the night of presentation cont IV abx repeat CBC am (7) Elevated troponin: Plan: likely myocardial demand ischemia in the setting of #1, #2, #3 and poorly controlled HTN no evidence of ACS - never had chest pain or other cardiac symptoms see discussion above re: echo findings, however (8) Tobacco use disorder, continuous: (9) COPD (chronic obstructive pulmonary disease): Plan: no exacerbation at this time O2 sats acceptable cont nebs (10) HTN (hypertension): Plan: poorly controlled added amlodipine 2.5mg po x 1 now substitute losartan for lisinopril as latter could be contributing to chronic cough cont metoprolol xl cont lasix diuresis Well-controlled today (11) Hypercholesterolemia: Plan: not on meds for such (12) Glaucoma: Plan: cont home drops (13) History of DVT (deep vein thrombosis): Plan: noted (14) Abnormal chest CT: Plan: pneumonia vs pulmonary edema suspect latter especially given the echo findings mago needs better BP control if there is any element of pneumonia she continues on rocephin/zithromax plan to DC on cephalexin azithromycin (15) DVT prophylaxis: Plan: lovenox 40mg daily (16) Chronic cough: Plan: COPD? lisinopril? silent aspiration? d/c lisinopril --> change to losartan cont nebs no changes in diet per speech therapy Plan PT, OT yohana requested I called and updated son by phone this evening Admission and Anticipated Discharge Date Admission Date: December 20, 2022 Subjective Patient feels well today. Denies feeling short of breath Review of Systems Review of Systems: All systems reviewed & are unremarkable except as noted in Subjective Physical Exam Physical Exam: General: Awake, conversant Heart: S1, S2/regular rate and rhythm, no murmur rubs or gallops Lungs: Clear to auscultation bilaterally. Normal effort Abdomen: Soft/nontender/nondistended. No hepatosplenomegaly Extremities: No clubbing/cyanosis. No edema Behavior: Appropriate, cooperative Results & Data Results & Data Vital Signs (Past 12 Hours) Vital Signs Temp Pulse Pulse Resp BP Pulse Ox O2 Del Method 12/24/22 15:42 72 12/24/22 15:32 Nasal Cannula 12/24/22 11:34 36.5 C 17 157/86 H 98 Nasal Cannula 12/24/22 10:23 70 12/24/22 09:40 36.4 C L 70 17 145/85 H 92 Nasal Cannula 12/24/22 07:49 Nasal Cannula O2 Flow Rate 12/24/22 15:42 12/24/22 15:32 1 12/24/22 11:34 2 12/24/22 10:23 12/24/22 09:40 2 12/24/22 07:49 1 PG Care Time/CCT Total # of Minutes Spent Total Time Spent with Patient: Total time spent is greater than 50% in coordination of care (as documented) at patient's floor/unit and/or counseling patient: Coding Level of Care Code 91058 SUB INP/OBS CARE 2/35MIN Diagnoses Bacteremia due to Escherichia coli R78.81; B96.20 Pyelonephritis N12 Urinary tract infection N39.0 HFrEF (heart failure with reduced ejection fraction) I50.20 Dysphagia R13.10 Leukocytosis D72.829 Elevated troponin R77.8 Tobacco use disorder, continuous F17.209 COPD (chronic obstructive pulmonary disease) J44.9 HTN (hypertension) I10 Hypertension type: essential hypertension Hypercholesterolemia E78.00 Glaucoma H40.9 Glaucoma type: unspecified Laterality: unspecified laterality History of DVT (deep vein thrombosis) Z86.[address] R93.89 DVT prophylaxis Z29.9 Chronic cough R05.3 (10) HTN (hypertension) Hypertension type: essential hypertension Qualified Code(s): I10 - Essential (primary) hypertension (12) Glaucoma Glaucoma type: unspecified Laterality: unspecified laterality Qualified Code(s): H40.9 - Unspecified glaucoma
[2022-12-24] MEDS: cefTRIAXone SODIUM 2,000 MG in DEXTROSE 5% 50 ML IV SCH (20:08)
[2022-12-24] MEDS: LATANOPROST 0.005% OP SOLN 2.5 ML BTL OPL SCH (20:18)
[2022-12-24] MEDS: AZITHROMYCIN 500 MG in DEXTROSE 5% 250 ML IV SCH (21:19)
[2022-12-24] MEDS: MELATONIN 3 MG TAB PO SCH (21:20)
[2022-12-25] MEDS: ENOXAPARIN INJ 40 MG/0.4 ML SYR SQ SCH (03:20)
[2022-12-25 06:36] LABS: BUN Creatinine Ratio 26.5 (10-20); Calcium 8.5 mg/dl (8.6-10.3); Creatinine Clr Calc Pharmacy 70.7 ml/min; Est GFR (African American) 106.6 ml/min
[2022-12-25] MEDS: amLODIPine BESYLATE 5 MG TAB PO SCH (08:35)
[2022-12-25] MEDS: CALCIUM CARBONATE 1250MG TAB PO SCH (08:36)
[2022-12-25] MEDS: POTASSIUM CHLORIDE CRTAB 20 MEQ TABCR PO SCH (08:36)
[2022-12-25] MEDS: FUROSEMIDE 20 MG TAB PO SCH (08:36)
[2022-12-25] MEDS: guaiFENesin 600 MG TABCR PO SCH (08:36)
[2022-12-25] MEDS: LOSARTAN POTASSIUM 50 MG TAB PO SCH (08:36)
[2022-12-25] MEDS: MULTIVITAMIN TAB PO SCH (08:36)
[2022-12-25] MEDS: ASPIRIN 81 MG ECTAB PO SCH (08:36)
[2022-12-25] MEDS: METOPROLOL SUCC 50MG EXT REL TAB PO SCH (08:36)
[2022-12-25] MEDS: DORZOLAMIDE HCL 2% OPH SOLN 10 ML BTL OP SCH (08:37)
[2022-12-25] MEDS: TIMOLOL MALEATE 0.25% OP SOLN 5 ML BTL OP SCH (08:37)
[2022-12-25] MEDS: PANTOprazole 40 MG TAB PO SCH (10:55)
--- NOTE | 2022-12-25 13:14 | Discharge Summary ---
Date of Service December 25, 2022 Admission HPI Per Admitting Provider The patient is an 82-year-old female with a past medical history including osteoarthritis of left knee, hyponatremia, hypophosphatemia, hypercholesterolemia, glaucoma, hypertension, GERD and tobacco use disorder. She presents to the emergency department with complaint of generalized weakness, lethargy and decreased appetite. Admission Exam Per Admitting Provider The patient is awake, alert and oriented 3, well developed and well nourished, normocephalic and atraumatic, lying in bed and in no acute distress. HEENT--PERRL, EOMI, mucous membranes and oropharynx mildly dry. Neck--supple. No JVD. No bruits. Thyroid normal, trachea midline, no adenopathy. Heart--normal S1 and S2. No murmurs, rubs or gallops. Lungs--overall diminished. No respiratory distress, no accessory muscle use. Abdomen--normal bowel sounds and soft. Nontender. Nondistended, no hernias or masses, no organomegaly. Extremities--no cyanosis or clubbing. No edema. Dermatologic--normal skin turgor, normal color, no abnormal lymph nodes, no rash. Neurologic--cranial nerves II through XII grossly intact. Rheumatologic--normal range of motion. Psychiatric--normal affect. Principal Diagnosis Acute pyelonephritis due to E. coli with E. coli bacteremia Acute systolic congestive heart failure Discharge Exam general: Awake, conversant Heart: S1, S2/regular rate and rhythm, no murmur rubs or gallops Lungs: Clear to auscultation bilaterally. Normal effort Abdomen: Soft/nontender/nondistended. No hepatosplenomegaly Extremities: No clubbing/cyanosis. No edema Behavior: Appropriate, cooperative Discharge Data Allergies Allergy/AdvReac Type Severity Reaction Status Date / Time nickel Allergy Unknown INFECTED Verified 11/11/22 13:13 EARS cat dander AdvReac Unknown Watery Eye Verified 11/11/22 13:13 brimonidine AdvReac CRUSTY EYES Verified 11/11/22 13:13 Consultations 12/20/22 18:47 ED Decision to Admit Stat Ordered Studies 12/20/22 19:23 CT abd pelvis IV con only Stat 12/20/22 21:43 CT for pulmonary embolism PE [CT angio chest PE protocol] Stat 12/22/22 11:30 FL video swallow Routine Hospital Course (1) Bacteremia due to Escherichia coli: patient with evidence of UTI, pyelonephritis on CT a/p, and all 4 blood cultures from admission + for GNR. BioFire + for e.coli. Urine cx did result - e.coli IS sensitive to rocephin. Blood culture positive for E. coli Treated with Rocephin during this hospital stay Discharged on Keflex p.o. to complete the course (2) Pyelonephritis: b/l, as suggested on CT of the abd/pelvis on IV rocephin, discharged on p.o. Keflex no flank pain/tenderness on exam (3) Urinary tract infection: as above on rocephin, discharged on p.o. Keflex (4) HFrEF (heart failure with reduced ejection fraction): due to pulmonary edema on imaging and physical exam echo obtained today --> EF 35-40%, global hypokinesis. etiology?? ischemic? (reported past h/o CAD, septal infarct on EKG, etc) due to frequent PVCs? other? ultimately may need additional ischemic w/u with heart cath. outpatient heart monitor to quantify PVCs? cont metoprolol succ due to chronic cough lisinopril was switched to losartan She got IV Lasix during this hospital stay [place] better in response to it. Repleted potassium started her on 20 mg of p.o. Lasix will need cardiology referral (5) Dysphagia: appreciate speech eval video swallow - mild silent aspiration but speech recommending no changes to diet or liquids (6) Leukocytosis: 2nd to UTI/pyelo/bacteremia/?pneumonia also, received very large dose of solumedrol (125mg ) in the ER the night of presentation will complete the antibiotic course repeat CBC am (7) Elevated troponin: likely myocardial demand ischemia in the setting of #1, #2, #3 and poorly controlled HTN no evidence of ACS - never had chest pain or other cardiac symptoms see discussion above re: echo findings, however (8) Tobacco use disorder, continuous: (9) COPD (chronic obstructive pulmonary disease): no exacerbation at this time O2 sats acceptable cont nebs (10) HTN (hypertension): poorly controlled added amlodipine 2.5mg po x 1 now substitute losartan for lisinopril as latter could be contributing to chronic cough cont metoprolol xl cont lasix diuresis Well-controlled today (11) Hypercholesterolemia: not on meds for such (12) Glaucoma: cont home drops (13) History of DVT (deep vein thrombosis): noted (14) Abnormal chest CT: pneumonia vs pulmonary edema suspect latter especially given the echo findings mago needs better BP control if there is any element of pneumonia she continues on rocephin/zithromax plan to DC on cephalexin (15) DVT prophylaxis: lovenox 40mg daily (16) Chronic cough: COPD? lisinopril? silent aspiration? d/c lisinopril --> change to losartan cont nebs no changes in diet per speech therapy Plan PT, OT evals recommended placement in rehab Total Time Total Time Spent Total Time Spent (In Minutes): 35 Discharge Plan Discharge Items Patient Disposition: Transfer Assisted Fac Reason For Visit: UTI, NSTEMI Discharge Diagnosis: E. coli UTI with bacteremia Acute systolic CHF Activity: As commented below Activity Comment: Per PT/OT recommendations Non-emergency contact: Primary Care Provider Call non-emergency contact if: you have any medication questions and your symptoms worsen Follow-up/Referrals: Silvio Lugo III, CRNP [Primary Care Provider] - 12/29/22 9:20 am (PCP follow up with Dr Romo: December 29, 2022 @ 9:20am) Diet: Heart Healthy Addtl Attending Provider Instructions: Follow-up with PCP in 1 week Talk to you PCP to refer you to a capacitor tester in 2 weeks Pending Studies at Discharge: No Stand-Alone Forms: My [facility] Skilled Items Patient informed of condition?: Yes DNR: No Discharge Level of Care: Skilled Communicable Disease: No Discharge Prognosis: Stable Lines: None Urinary Catheter: No Medications and DC Order Prescriptions: New amlodipine [Norvasc] 5 mg Tablet 2.5 mg PO QAM 30 Days Qty: 15 0RF losartan 50 mg Tablet 50 mg PO QAM 30 Days Qty: 30 0RF furosemide 20 mg Tablet 20 mg PO QAM 30 Days Qty: 30 0RF potassium chloride 20 mEq Tablet,Er Particles/Crystals 20 meq PO QAM 30 Days Qty: 30 0RF cephalexin 500 mg capsule 500 mg PO BID 3 Days Qty: 6 0RF Continued calcium carbonate [Calcium 600] 600 mg calcium (1,500 mg) tablet 600 mg PO BID metoprolol succinate 100 mg tablet extended release 24 hr 100 mg PO DAILY Qty: 90 3RF pantoprazole 40 mg tablet,delayed release (DR/EC) 40 mg PO DAILY Qty: 90 1RF acetic acid 2 % solution 5 drp otic (ear) QID Qty: 15 0RF multivitamin Tablet 1 tab PO QAM latanoprost [Xalatan] 0.005 % drops 1 drp OPL HS biotin 10,000 mcg Capsule 10,000 mcg PO QAM dorzolamide [Trusopt] 2 % Drops 1 drp OPHTHALMIC (EYE) BID timolol maleate (PF) 0.25 % Dropperette 1 drp OPHTHALMIC (EYE) BID Discontinued lisinopril 40 mg tablet 40 mg PO DAILY Qty: 90 3RF Discharge Orders: Discharge Order- CHF (Routine); Ordered 12/25/22 Ordered By: Geovanni Ramsey Admission Data Admit Date/Time: 12/20/22 20:52 Attending Provider: Geovanni Ramsey Admit Provider: Filiberto Frances Primary Care Provider: Silvio Lugo III Other Providers: Filiberto Frances ; [facility],[employer] Other Interventions: Discharge Summary Assessment (RN) Last Done: 12/25/22 16:21 Coding Level of Care Code 88596 INP/OBS DISCH >30 MIN Diagnoses Bacteremia due to Escherichia coli R78.81; B96.20 Pyelonephritis N12 Urinary tract infection N39.0 HFrEF (heart failure with reduced ejection fraction) I50.20 Dysphagia R13.10 Leukocytosis D72.829 Elevated troponin R77.8 Tobacco use disorder, continuous F17.209 COPD (chronic obstructive pulmonary disease) J44.9 HTN (hypertension) I10 Hypertension type: essential hypertension Hypercholesterolemia E78.00 Glaucoma H40.9 Glaucoma type: unspecified Laterality: unspecified laterality History of DVT (deep vein thrombosis) Z86.[address] R93.89 DVT prophylaxis Z29.9 Chronic cough R05.3
== END 2022-12-25 17:00 | DRG 689 ==
LOC: ED 16:57 → SUATTDRO 20:52 → 2E 20:52 → 4W 12-21 02:10